=== PATIENT | male | born 1945 | race Caucasian/White ===

== ENCOUNTER 2017-07-16 06:26 | Inpatient (IN) | payer OTHER ==
[2017-07-16] VITALS (7 sets, daily range): BP systolic 152–190; BP diastolic 73–87; PULSE 70–86; TEMP 36.2–36.7; O2SAT 93–99; BMI 35.4
[~2017-07-16] VITALS: Ht 180.3 cm; Wt 111.4 kg
[~2017-07-16 06:26] MED LIST: ALL300 PO; ASPEC81 PO; ATEN50TA8 PO; AVLX/400 PO; BUPR-79 PO; CILO50TA9 PO; CLOP1TAB15 PO; CRS10 PO; FENO200C6 PO; GABA-113 PO; HYDC25 PO; IMP/50 PO; INSU70IN2 SC; LISI-725 PO; LRT5 PO; MORP30TA23 PO; NTRGSL/4 UT; OMEG10007 PO; PROM25TA PO; RIFA300C34 PO; TEMA15CA4 PO; ZNTT/150 PO
[2017-07-16] MEDS ORDERED: ASPIRIN 81 MG CHEW PO STA (06:54)
[2017-07-16] MEDS ORDERED: ONDANSETRON INJ 2 MG/ML 2 ML VIAL IV STA (07:15)
--- NOTE | 2017-07-16 07:28 | EMERGENCY ROOM VISIT NOTE ---
History Report prepared by Mendel: Sunday Rebolledo Under the Supervision of: Dr. Ivette Fried M.D. First contact with patient: 06:38 Chief Complaint: SHORTNESS OF BREATH Stated Complaint: SOB,NAUSEA,COUGHING UP PHLEM,SORE THROAT Nursing Triage Summary: Pt reports, "I am on oxygen at home. I have it set on 2. I went to bed and the longer I laid there, the worse it got. I couldn't breathe right. I've had a couple heart attacks and have a pacemaker." Denies cp. History of Present Illness The patient is a 72 year old male who presents to the Emergency Room with complaints of SOB beginning two hours ago. The patient states that he was watching television all night while lying down in bed. When he went to bed at around 0500 this morning, he was unable to fall asleep due to his shortness of breath. He notes experiencing SOB for the past 3 days, but notes that his symptoms worsened this morning. He also reports that his symptoms worsen when lying down. The patient states that he finds relief of his symptoms when sitting upright. He notes that he has a history of diabetes mellitus and stage four kidney disease but is not on dialysis. He also notes a history of CABG surgery, and has a pacemaker and defibrillator implanted. He reports a cough and shoulder pain with movement. He denies any chest pain and abdominal pain. He did not take any aspirin for his symptoms prior to arrival and is not currently on any antibiotics. The patient is on Plavix. Source of History: patient Onset: 0500 this morning Position: chest Timing: constant Modifying Factors (Worsening): other (lyin down) Associated Symptoms: + cough, No chest pain, No abdominal pain Note: he notes shoulder pain with movement Review of Systems See HPI for pertinent positives & negatives. A total of 10 systems reviewed and were otherwise negative. Past Medical & Surgical Medical Problems: (1) Diabetes (2) Shortness of breath (3) Stage 4 chronic kidney disease Surgical Problems: (1) Hx of CABG Social History Smoking Status: Never Smoker Marital Status: Housing Status: lives with significant other Occupation Status: retired Current/Historical Medications Scheduled Allopurinol (Zyloprim), 300 MG PO DAILY Amlodipine (Norvasc), 10 MG PO DAILY Aspirin (Aspirin Ec), 81 MG PO DAILY Bupropion Hcl (Smoking Deterre (Bupropion Hcl Sr), 1 TAB PO BID Cholecalciferol (Vitamin D3), 2 TAB PO DAILY Clopidogrel (Plavix), 75 MG PO DAILY Duloxetine HCl (Cymbalta), 1 CAP PO HS Duloxetine Hcl (Cymbalta), 60 MG PO DAILY Fenofibrate (Tricor), 200 MG PO DAILY Imipramine Hcl (Tofranil), 25 MG PO QAM Imipramine Hcl (Tofranil), 2 TAB PO HS Insulin Aspart (Novolog), 29 UNITS SC AC Insulin Glargine (Lantus Solostar), 52 UNITS SC AMPM Levothyroxine Sodium (Levothyroxine Sodium), 1 TAB PO DAILYBB Magnesium Oxide (Mag-Ox), 400 MG PO BID Metoprolol Succ (Toprol Xl) (Toprol-Xl), 1.5 TAB PO HS Multivitamin (Multivitamin), 1 TAB PO DAILY Nitroglycerin (Nitrostat), 0.4 MG UT PRN [place]-3 Fatty Acids (Fish Oil 1200 mg), 2 CAP PO BID Pantoprazole (Protonix), 40 MG PO DAILY Pregabalin (Lyrica), 150 MG PO BID Rosuvastatin Calcium (Crestor), 40 MG PO DAILY Scheduled PRN Oxymetazoline Hcl (Afrin 0.05% Nasal [place]), 2 SPRAYS [place] BID PRN for Nasal Congestion Miscellaneous Medications Home O2 Therapy (Oxygen), 2 LITERS NA Allergies Coded Allergies: Moxifloxacin (Unverified Adverse Reaction, Severe, "DEPLETED POTASSIUM AND MAGNESIUM. CARDIAC ARREST" PT , 07/16/17) Physical Exam Vital Signs Date Time Temp Pulse Resp B/P (MAP) Pulse Ox O2 Delivery O2 Flow Rate FiO2 07/16/17 10:30 58 20 163/82 96 Nasal Cannula 2.0 07/16/17 10:00 96 Nasal Cannula 2.0 07/16/17 10:00 68 20 177/94 96 Nasal Cannula 2.0 07/16/17 09:30 72 20 173/81 94 Nasal Cannula 2.0 07/16/17 09:00 68 20 161/89 94 Room Air 07/16/17 08:30 68 20 177/86 95 Nasal Cannula 2.0 07/16/17 08:00 64 20 169/86 94 Nasal Cannula 2.0 07/16/17 07:48 Nasal Cannula 2.0 10/15/17 07:30 68 18 168/88 91 Room Air 07/16/17 06:51 67 18 173/90 94 Room Air 07/16/17 06:51 Room Air 07/16/17 06:51 65 07/16/17 06:31 36.6 66 20 180/85 94 Room Air 07/16/17 06:31 94 Room Air Physical Exam Vital signs reviewed. General: Obese but generally well-appearing, in no significant distress. HEENT: No scleral icterus, PERRLA, neck supple. Atraumatic. Cardiovascular: Regular rate and rhythm, no extra sounds, pacemaker implanted Pulmonary: Clear to auscultation bilaterally, diminished breath sounds bilaterally Abdomen: Soft, nontender, nondistended, positive bowel sounds. Musculoskeletal: Atraumatic, minimal peripheral edema, post sternotomy scar Neurologic: Patient awake alert and oriented x 3. Skin: Warm, dry, no rash Medical Decision & Procedures ER Provider Diagnostic Interpretation: Radiology results as stated below per my review and radiologist interpretation: CHEST ONE VIEW PORTABLE HISTORY: Short of breath. Cough. COMPARISON: Chest 07/20/2010. FINDINGS: Patient is slightly rotated on this study. Left-sided single lead pacemaker/defibrillator. Poststernotomy changes. Linear scarlike density within the right midlung zone. Old, healed left-sided rib fractures. The heart remains mildly enlarged. No pleural effusions. No pneumothorax. No evidence for pulmonary edema. IMPRESSION: 1. Stable mild cardiomegaly. 2. Linear scarlike density within the right midlung zone. Electronically signed by: Javier Lowery M.D. 07/16/2017 7:31 AM Laboratory Results 07/16/17 07:10 Red Blood Count 4.51, Mean Corpuscular Volume 85.1, Mean Corpuscular Hemoglobin 28.8, Mean Corpuscular Hemoglobin Concent 33.9, Mean Platelet Volume 10.8, Neutrophils (%) (Auto) 66.0, Lymphocytes (%) (Auto) 22.7, Monocytes (%) (Auto) 8.7, Eosinophils (%) (Auto) 1.8, Basophils (%) (Auto) 0.4, Neutrophils # (Auto) 3.26, Lymphocytes # (Auto) 1.12, Monocytes # (Auto) 0.43, Eosinophils # (Auto) 0.09, Basophils # (Auto) 0.02 07/16/17 07:10 Test 07/16/17 07:10 07/16/17 07:18 White Blood Count 4.94 K/uL (4.8-10.8) Red Blood Count 4.51 M/uL (4.7-6.1) Hemoglobin 13.0 g/dL (14.0-18.0) Hematocrit 38.4 % (42-52) Mean Corpuscular Volume 85.1 fL (80-100) Mean Corpuscular Hemoglobin 28.8 pg (25-34) Mean Corpuscular Hemoglobin Concent 33.9 g/dl (32-36) Platelet Count 160 K/uL (130-400) Mean Platelet Volume 10.8 fL (7.4-10.4) Neutrophils (%) (Auto) 66.0 % Lymphocytes (%) (Auto) 22.7 % Monocytes (%) (Auto) 8.7 % Eosinophils (%) (Auto) 1.8 % Basophils (%) (Auto) 0.4 % Neutrophils # (Auto) 3.26 K/uL (1.4-6.5) Lymphocytes # (Auto) 1.12 K/uL (1.2-3.4) Monocytes # (Auto) 0.43 K/uL (0.11-0.59) Eosinophils # (Auto) 0.09 K/uL (0-0.5) Basophils # (Auto) 0.02 K/uL (0-0.2) RDW Standard Deviation 42.9 fL (36.4-46.3) RDW Coefficient of Variation 13.8 % (11.5-14.5) Immature Granulocyte % (Auto) 0.4 % Immature Granulocyte # (Auto) 0.02 K/uL (0.00-0.02) Prothrombin Time 11.3 SECONDS (9.0-12.0) Prothromb Time International Ratio 1.1 (0.9-1.1) Activated Partial Thromboplast Time 29.9 SECONDS (21.0-31.0) Partial Thromboplastin Ratio 1.2 Anion Gap 6.0 mmol/L (3-11) Est Creatinine Clear Calc Drug Dose 41.0 ml/min Estimated GFR () 35.4 Estimated GFR (Non- 30.5 BUN/Creatinine Ratio 10.3 (10-20) Calcium Level 8.2 mg/dl (8.5-10.1) Magnesium Level 2.4 mg/dl (1.8-2.4) Total Bilirubin 0.5 mg/dl (0.2-1) Direct Bilirubin 0.2 mg/dl (0-0.2) Aspartate Amino Transf (AST/SGOT) 22 U/L (15-37) Alanine Aminotransferase (ALT/SGPT) 34 U/L (12-78) Alkaline Phosphatase 39 U/L (45-117) Total Creatine Kinase 162 U/L (39-308) Creatine Kinase MB 3.0 ng/ml (0.5-3.6) Creatine Kinase MB Ratio 1.9 (0-3.0) Pro-B-Type Natriuretic Peptide 479 pg/ml (0-900) Total Protein 6.9 gm/dl (6.4-8.2) Albumin 3.7 gm/dl (3.4-5.0) Amylase Level 19 U/L (25-115) Lipase 104 U/L (73-393) Hepatitis C Antibody Screen NEG (NEG) Bedside Troponin I < 0.030 ng/ml (0-0.045) Laboratory results per my review. Medications Administered Medications (Trade) Dose Ordered Sig/Lashae Route Start Time Stop Time Status Last Admin Dose Admin Aspirin (Aspirin Chew) 324 mg NOW STAT PO 07/16/17 06:54 07/16/17 06:56 DC 07/16/17 07:14 324 MG Ondansetron HCl (Zofran Inj) 4 mg NOW STAT IV 07/16/17 07:15 07/16/17 07:16 DC 07/16/17 07:19 4 MG Hydralazine HCl (HydrALAZINE INJ) 10 mg NOW STAT IV. 07/16/17 08:46 07/16/17 08:47 DC 07/16/17 09:20 10 MG Albuterol/ Ipratropium (Duoneb) 3 ml NOW STAT INH 07/16/17 08:47 07/16/17 08:48 DC 07/16/17 09:20 3 ML Furosemide (Lasix Inj) 40 mg NOW STAT IV 07/16/17 09:00 07/16/17 09:01 DC 07/16/17 09:20 40 MG Amlodipine Besylate (Norvasc Tab) 10 mg 1032 ONCE PO 07/16/17 10:32 07/16/17 12:12 DC 07/16/17 12:47 10 MG ECG Indication: SOB/dyspnea Rate (beats per minute): 66 Rhythm: junctional Findings: 1st degree AV block, no acute ischemic change, prolonged QT, other ( diffuse t-wave flattening, likely previous septal infarct) ED Course 0653: Past medical records reviewed. The patient was evaluated in room A3. A complete history and physical examination was performed. 0654: Aspirin Chew 324mg Po 0715: Zofran Inj 4mg IV 0846: Hydralazine HCl 10mg IV 0847: Duoneb 3ml INH 0900: Lasix Inj 40mg IV 0928: I reevaluated and updated the patient. 0947: Upon reevaluation, the patient is resting comfortably. I discussed laboratory and radiographic results with him. He verbalized agreement of the treatment plan. I spoke with Dr. Zuleta of the [facility] Hospitalist Service. The patient will be evaluated for further management and care. Medical Decision Differential diagnosis: Etiologies such as infections, reactive airway disease, pneumonia, pneumothorax , COPD, CHF, cardiac ischemia, pulmonary embolism, musculoskeletal, gastrointestinal, as well as others were entertained. This patient was evaluated and appeared to be in no significant distress. The patient was feeling much more comfortable sitting up. He did have some oxygen desaturations on room air but maintained his saturations well on 2 L nasal cannula. Patient was given aspirin 324 mg to chew. Chest x-ray was obtained and reveals some chronic scarring without evidence of acute focal lung consolidation or failure. Laboratory work is fairly unrevealing. Cardiac enzymes are negative. EKG reveals no evidence of acute ischemia. The patient was given 40 mg of IV Lasix as I do feel there is an element of fluid overload. Patient was given hydralazine 10 mg IV. He was also given a DuoNeb treatment with minimal improvement in his symptoms. Given the patient's extensive history of diabetes, hypertension, coronary artery disease and renal failure, he 'll be evaluated by the hospitalist service for admission and further management. He has are aware of the plan and agree. Medication Reconcilliation Current Medication List: was personally reviewed by me Blood Pressure Screening Patient's blood pressure: Elevated blood pressure Blood pressure disposition: Referred to PCP Consults Time Called: [phone] Consulting Physician: Dr. Zuleta - Edwin Eckert Returned Call: [phone] I reviewed the patient's case with Edwin Beverly. He will evaluate the patient for further management. Impression Primary Impression: Hypoxia Additional Impressions: SOB (shortness of breath) Hypertension Scribe Attestation The scribe's documentation has been prepared under my direction and personally reviewed by me in its entirety. I confirm that the note above accurately reflects all work, treatment, procedures, and medical decision making performed by me. Departure Information Dispostion Being Evaluated By Hospitalist Referrals Chavez Cesar M.D. (PCP) Patient Instructions [facility] Problem Qualifiers
[2017-07-16 07:32] LABS: BASO % 0.4 %; BASO ABS # 0.02 K/uL (0-0.2); COMPLETE YES; EOS % 1.8 %; HEMATOCRIT 38.4 % (42-52); IG% 0.4 %; LYMPH % 22.7 %; LYMPH ABS # 1.12 K/uL (1.2-3.4); MEAN CELL VOLUME 85.1 fL (80-100); MEAN CORPUSCULAR HEMOGLOBIN 28.8 pg (25-34); MEAN CORPUSCULAR HGB CONC 33.9 g/dl (32-36); MEAN PLATELET VOLUME 10.8 fL (7.4-10.4); MONO % 8.7 %; PLATELET COUNT 160 K/uL (130-400); RED BLOOD COUNT 4.51 M/uL (4.7-6.1); WHITE BLOOD COUNT 4.94 K/uL (4.8-10.8)
--- NOTE | 2017-07-16 07:32 | DIAGNOSTIC IMAGING REPORT ---
CHEST ONE VIEW PORTABLE HISTORY: Short of breath. Cough. COMPARISON: Chest 07/20/2010. FINDINGS: Patient is slightly rotated on this study. Left-sided single lead pacemaker/defibrillator. Poststernotomy changes. Linear scarlike density within the right midlung zone. Old, healed left-sided rib fractures. The heart remains mildly enlarged. No pleural effusions. No pneumothorax. No evidence for pulmonary edema. IMPRESSION: 1. Stable mild cardiomegaly. 2. Linear scarlike density within the right midlung zone. Electronically signed by: Javier Lowery M.D. 07/16/2017 7:31 AM Dictated Date/Time: 07/16/2017 7:29 AM
[2017-07-16 07:40] LABS: INR 1.1 (0.9-1.1); PARTIAL THROMBOPLASTIN RATIO 1.2; PROTHROMBIN TIME (PATIENT) 11.3 SECONDS (9.0-12.0)
[2017-07-16 07:45] LABS: BUN/CREATININE RATIO 10.3 (10-20); CALCIUM 8.2 mg/dl (8.5-10.1); CREATININE 2.1 mg/dl (0.60-1.40); MAGNESIUM 2.4 mg/dl (1.8-2.4); POTASSIUM 3.6 mmol/L (3.5-5.1)
[2017-07-16 07:51] LABS: CKMB/CK RATIO 1.9 (0-3.0)
[2017-07-16] MEDS ORDERED: LEVO50TA6 PO (07:56)
[2017-07-16] MEDS ORDERED: OXGN (07:56)
[2017-07-16] MEDS ORDERED: MULT-506 PO (07:56)
[2017-07-16] MEDS ORDERED: OMEG5CAP PO (07:56)
[2017-07-16] MEDS ORDERED: CHOL1000 PO (07:56)
[2017-07-16] MEDS ORDERED: INSDGIPEN SC (07:56)
[2017-07-16] MEDS ORDERED: ALLO300T2 PO (07:56)
[2017-07-16] MEDS ORDERED: DULO60CA44 PO (07:56)
[2017-07-16] MEDS ORDERED: ROSU40TA PO (07:56)
[2017-07-16] MEDS ORDERED: MAGN400T6 PO (07:56)
[2017-07-16] MEDS ORDERED: FENO200C6 PO (07:56)
[2017-07-16] MEDS ORDERED: IMIP25TA PO ×2 (07:56)
[2017-07-16] MEDS ORDERED: CYM/30 PO (07:56)
[2017-07-16] MEDS ORDERED: METO25TA3 PO (07:56)
[2017-07-16] MEDS ORDERED: ASPI81TA28 PO (07:56)
[2017-07-16] MEDS ORDERED: BUPR-102 PO (07:56)
[2017-07-16] MEDS ORDERED: CLOP1TAB15 PO (07:56)
[2017-07-16] MEDS ORDERED: NVLG SC (07:56)
[2017-07-16] MEDS ORDERED: AMLO-114 PO (07:56)
[2017-07-16] MEDS ORDERED: AFRINWC NAE (07:56)
[2017-07-16] MEDS ORDERED: PANT40TA PO (07:56)
[2017-07-16] MEDS ORDERED: NTRGSL/4 UT (07:56)
[2017-07-16] MEDS ORDERED: PREG1CAP70 PO (07:56)
[2017-07-16] MEDS ORDERED: HydrALAZINE HCL 20 MG/ML VIAL IV. STA (08:46)
[2017-07-16] MEDS ORDERED: ALBUT/IPRATROP 3MG/0.5MG NEB 3 ML VIAL INH STA (08:47)
[2017-07-16] MEDS ORDERED: FUROSEMIDE 40 MG/4 ML VIAL IV STA (09:00)
[2017-07-16] MEDS ORDERED: AMLODIPINE BESYLATE 5 MG TAB PO ONE (10:32)
[2017-07-16] MEDS ORDERED: DEXTROSE 50% 50 ML SYR IV PRN (10:45)
[2017-07-16] MEDS ORDERED: GLUCOSE 40% GEL 15 GM TUBE PO PRN (10:45)
[2017-07-16] MEDS ORDERED: GLUCOSE 10 TABS/TUBE PO PRN (10:45)
[2017-07-16] MEDS ORDERED: GLUCAGON FOR INJ 1 MG VIAL SQ PRN (10:45)
[2017-07-16 11:02] LABS: AMYLASE 19 U/L (25-115)
--- NOTE | 2017-07-16 11:18 | History and Physical ---
History & Physical Date & Time of Service: Jul 16, 2017 at 10:41 Chief Complaint: Sob,Nausea,Coughing Up Phlem,Sore Throat Primary Care Physician: Chavez Cesar M.D. History of Present Illness Source: patient, family This is a 72 year old male with a PMH of CAD s/p CABGx2, Hx. of Cardiac Arrest and V-Fib s/p AICD placement, insulin dependent DM2 with complications including peripheral vascular disease s/p R foot transmetatarsal amputation, CKD stage IV, JOSE on nocturnal O2, Hypothyroidism, Mood Disorder with depression - presents with shortness of breath. As per patient, he has been having shortness of breath and "throat pain" for the past three weeks. He has seen his primary care physician; and was given antibiotics at that time. He said he never fully recovered. Last evening, while laying down, he developed worsening shortness of breath. He uses O2 nocturnally due to sleep apnea (did not tolerate CPAP mask); and he turned it up to 3L of O2 with no help. He also developed some chest/throat pain. Denies fevers/chills. Denies nausea/vomiting. Past Medical/Surgical History Surgical Problems: (1) Hx of CABG Status: Resolved Social History Smoking Status: Never Smoker Marital Status: Housing status: lives with family Immunizations History of Influenza Vaccine: Yes Influenza Vaccine Date: Jun 19, 2010 History of Tetanus Vaccine?: Unknown History of Pneumococcal: Yes Pneumococcal Date: Jun 19, 2010 History of Hepatitis B Vaccine: No Multi-Drug Resistant Organisms History of MDRO: No Allergies Coded Allergies: Moxifloxacin (Unverified Adverse Reaction, Severe, "DEPLETED POTASSIUM AND MAGNESIUM. CARDIAC ARREST" PT , 07/16/17) Home Medications Scheduled Allopurinol (Zyloprim), 300 MG PO DAILY Amlodipine (Norvasc), 10 MG PO DAILY Aspirin (Aspirin Ec), 81 MG PO DAILY Bupropion Hcl (Smoking Deterre (Bupropion Hcl Sr), 1 TAB PO BID Cholecalciferol (Vitamin D3), 2 TAB PO DAILY Clopidogrel (Plavix), 75 MG PO DAILY Duloxetine HCl (Cymbalta), 1 CAP PO HS Duloxetine Hcl (Cymbalta), 60 MG PO DAILY Fenofibrate (Tricor), 200 MG PO DAILY Imipramine Hcl (Tofranil), 25 MG PO QAM Imipramine Hcl (Tofranil), 2 TAB PO HS Insulin Aspart (Novolog), 29 UNITS SC AC Insulin Glargine (Lantus Solostar), 52 UNITS SC AMPM Levothyroxine Sodium (Levothyroxine Sodium), 1 TAB PO DAILYBB Magnesium Oxide (Mag-Ox), 400 MG PO BID Metoprolol Succ (Toprol Xl) (Toprol-Xl), 1.5 TAB PO HS Multivitamin (Multivitamin), 1 TAB PO DAILY Nitroglycerin (Nitrostat), 0.4 MG UT PRN [place]-3 Fatty Acids (Fish Oil 1200 mg), 2 CAP PO BID Pantoprazole (Protonix), 40 MG PO DAILY Pregabalin (Lyrica), 150 MG PO BID Rosuvastatin Calcium (Crestor), 40 MG PO DAILY Scheduled PRN Oxymetazoline Hcl (Afrin 0.05% Nasal [place]), 2 SPRAYS LAMONT BID PRN for Nasal Congestion Miscellaneous Medications Home O2 Therapy (Oxygen), 2 LITERS NA Review of Systems Constitutional: No fever, No chills, No sweats, No weakness, No fatigue Respiratory: + cough, + shortness of breath, + dyspnea on exertion, + dyspnea at rest, No sputum, No wheezing, No hemoptysis Cardiovascular: + chest pain, + orthopnea, + PND, + edema, No claudication, No palpitations Abdomen: No pain, No nausea, No vomiting, No diarrhea, No constipation, No GI bleeding, No problem reported Musculoskeletal: No joint pain, No muscle pain, No swelling, No calf pain Genitourinary - Male: No hematuria, No dysuria, No urinary frequency, No urinary urgency Neurologic: No memory loss, No weakness, No numbness/tingling, No vertigo Psychiatric: + depression symptoms (controlled with medications), No anxiety, No insomnia Hematologic / Lymphatic: No abnormal bleeding/bruising Integumentary: No rash Allergic / Immunologic: No environmental allergies, No seasonal allergies Physical Exam Vital Signs Date Time Temp Pulse Resp B/P (MAP) Pulse Ox O2 Delivery O2 Flow Rate FiO2 07/16/17 10:00 68 20 177/94 96 Nasal Cannula 2.0 07/16/17 09:30 72 20 173/81 94 Nasal Cannula 2.0 07/16/17 09:00 68 20 161/89 94 Room Air 07/16/17 08:30 68 20 177/86 95 Nasal Cannula 2.0 07/16/17 08:00 64 20 169/86 94 Nasal Cannula 2.0 07/16/17 07:48 Nasal Cannula 2.0 07/16/17 07:30 68 18 168/88 91 Room Air 07/16/17 06:51 67 18 173/90 94 Room Air 07/16/17 06:51 Room Air 07/16/17 06:51 65 07/16/17 06:31 36.6 66 20 180/85 94 Room Air 07/16/17 06:31 94 Room Air General Appearance: no apparent distress, + obese Head: normocephalic, atraumatic Eyes: normal inspection ENT: hearing grossly normal Respiratory/Chest: chest non-tender, lungs clear, normal breath sounds, no respiratory distress, no accessory muscle use Cardiovascular: regular rate, rhythm, no edema, no gallop, no JVD, no murmur, normal peripheral pulses Abdomen/GI: normal bowel sounds, non tender, soft Back: no muscle spasm Extremities/Musculoskelatal: normal inspection, no calf tenderness, normal capillary refill, no pedal edema, normal range of motion, + pertinent finding ( R transmetatarsal amputation) Neurologic/Psych: no motor/sensory deficits, alert, normal mood/affect Skin: normal color Lymphatic: no adenopathy Diagnostics Laboratory Results Results Past 24 Hours Test 07/16/17 07:10 07/16/17 07:18 07/16/17 10:32 Range/Units White Blood Count 4.94 4.8-10.8 K/uL Red Blood Count 4.51 4.7-6.1 M/uL Hemoglobin 13.0 14.0-18.0 g/dL Hematocrit 38.4 42-52 % Mean Corpuscular Volume 85.1 80-100 fL Mean Corpuscular Hemoglobin 28.8 25-34 pg Mean Corpuscular Hemoglobin Concent 33.9 32-36 g/dl Platelet Count 160 130-400 K/uL Mean Platelet Volume 10.8 7.4-10.4 fL Neutrophils (%) (Auto) 66.0 % Lymphocytes (%) (Auto) 22.7 % Monocytes (%) (Auto) 8.7 % Eosinophils (%) (Auto) 1.8 % Basophils (%) (Auto) 0.4 % Neutrophils # (Auto) 3.26 1.4-6.5 K/uL Lymphocytes # (Auto) 1.12 1.2-3.4 K/uL Monocytes # (Auto) 0.43 0.11-0.59 K/uL Eosinophils # (Auto) 0.09 0-0.5 K/uL Basophils # (Auto) 0.02 0-0.2 K/uL RDW Standard Deviation 42.9 36.4-46.3 fL RDW Coefficient of Variation 13.8 11.5-14.5 % Immature Granulocyte % (Auto) 0.4 % Immature Granulocyte # (Auto) 0.02 0.00-0.02 K/uL Prothrombin Time 11.3 9.0-12.0 SECONDS Prothromb Time International Ratio 1.1 0.9-1.1 Activated Partial Thromboplast Time 29.9 21.0-31.0 SECONDS Partial Thromboplastin Ratio 1.2 Sodium Level 140 136-145 mmol/L Potassium Level 3.6 3.5-5.1 mmol/L Chloride Level 107 98-107 mmol/L Carbon Dioxide Level 27 21-32 mmol/L Anion Gap 6.0 3-11 mmol/L Blood Urea Nitrogen 22 7-18 mg/dl Creatinine 2.10 0.60-1.40 mg/dl Est Creatinine Clear Calc Drug Dose 41.0 ml/min Estimated GFR () 35.4 Estimated GFR (Non- 30.5 BUN/Creatinine Ratio 10.3 10-20 Random Glucose 149 70-99 mg/dl Calcium Level 8.2 8.5-10.1 mg/dl Magnesium Level 2.4 1.8-2.4 mg/dl Total Bilirubin 0.5 0.2-1 mg/dl Direct Bilirubin 0.2 0-0.2 mg/dl Aspartate Amino Transf (AST/SGOT) 22 15-37 U/L Alanine Aminotransferase (ALT/SGPT) 34 12-78 U/L Alkaline Phosphatase 39 45-117 U/L Total Creatine Kinase 162 39-308 U/L Creatine Kinase MB 3.0 0.5-3.6 ng/ml Creatine Kinase MB Ratio 1.9 0-3.0 Pro-B-Type Natriuretic Peptide 479 0-900 pg/ml Total Protein 6.9 6.4-8.2 gm/dl Albumin 3.7 3.4-5.0 gm/dl Bedside Troponin I < 0.030 0-0.045 ng/ml Diagnostic Radiology CHEST ONE VIEW PORTABLE HISTORY: Short of breath. Cough. COMPARISON: Chest 07/20/2010. FINDINGS: Patient is slightly rotated on this study. Left-sided single lead pacemaker/defibrillator. Poststernotomy changes. Linear scarlike density within the right midlung zone. Old, healed left-sided rib fractures. The heart remains mildly enlarged. No pleural effusions. No pneumothorax. No evidence for pulmonary edema. IMPRESSION: 1. Stable mild cardiomegaly. 2. Linear scarlike density within the right midlung zone. EKG Suspected ectopic atrial rhythm with 1st degree A-V block Nonspecific T wave abnormality Prolonged QT Abnormal ECG Impression Assessment and Plan This is a 72 year old male with a PMH of CAD s/p CABGx2, Hx. of Cardiac Arrest and V-Fib s/p AICD placement, insulin dependent DM2 with complications including peripheral vascular disease s/p R foot transmetatarsal amputation, CKD stage IV, JOSE on nocturnal O2, Hypothyroidism, Mood Disorder with depression - presents with shortness of breath Shortness of Breath unsure of the cause of SOB; possibly obesity-hypoventilation, worsening JOSE, bronchitis, CHF, or ACS will check an echo; was given Lasix in the ED started on Doxycycline will monitor in tele, trend cardiac enzymes recheck CXR in AM nocturnal pulse ox nocturnal O2 and intermittent O2 throughout the day nebs PRN Insulin Dependent DM2 patient is on a high dose of insulin, takes 52 units twice daily of Lantus as well as a sliding scale of Novolog will check an updated Ha1c Start with 45 units Lantus BID and work our way up monitor BSGs AC and HS HTN uncontrolled BP > 180/100 on admission patient did not take morning medications given Hydralazine in the ED gave dose of amlodipine, monitor BP and we will adjust meds accordingly CKD stage IV patient states that he was to have further kidney w/up creatinine at one point went up to >4 currently creatinine is down to 2.1 as per family request, would like to see nephrology consulted nephrology, received one dose of Lasix in the ED Hx. of CAD s/p CABGx2 unsure if this is atypical ACS related shortness of breath therefore, monitor in tele - trend cardiac enzymes check an echo continue current medications Hx. of cardiac arrest and V-Fib s/p AICD JOSE did not tolerate CPAP uses 2L O2 nocturnally check nocturnal pulse ox as SOB is worse at night Hypothyroidism check TSH continue current dose of Synthroid Mood Disorder and Depression continue current medications DVT ppx subq heparin FULL CODE VTE Prophylaxis VTE Risk Assessment Done? Y/N: Yes Risk Level: Moderate
[2017-07-16] MEDS: SODIUM CHLORIDE 0.9% 1000ML 1,000 ML IV SCH (12:16)
[2017-07-16] MEDS ORDERED: DOXYCYCLINE HYCLATE 100 MG CAP PO SCH (13:00)
[2017-07-16] MEDS: INSULIN ASPART 100 UNITS/ML 3 ML PEN SC SCH ×3 (13:24→20:43)
[2017-07-16] MEDS: MAGNESIUM OXIDE 400 MG TAB PO SCH ×2 (13:35→20:47)
[2017-07-16] MEDS: DULOXETINE HCL 60 MG CAP PO SCH (13:35)
[2017-07-16] MEDS: PANTOprazole SOD 40 MG TAB PO SCH (13:36)
[2017-07-16] MEDS: ROSUVASTATIN CALCIUM 20 MG TAB PO SCH (13:36)
[2017-07-16] MEDS: CLOPIDOGREL BISULFATE 75 MG TAB PO SCH (13:36)
[2017-07-16] MEDS: BuPROPion SR 150 MG TABCR PO SCH ×2 (13:36→20:46)
[2017-07-16] MEDS ORDERED: PERFLUTREN LIPID MICROSPHERE (DEFINITY) IV ONE (14:56)
[2017-07-16] MEDS: ALBUT/IPRATROP 3MG/0.5MG NEB 3 ML VIAL INH SCH ×2 (15:10→18:57)
[2017-07-16] MEDS: HEPARIN SOD 5000 UNIT/0.5 ML CARP SQ SCH ×2 (15:32→20:42)
[2017-07-16] MEDS ORDERED: SODIUM CHLORIDE 0.65% NA SOLN 45 ML (OCEAN) PRN (16:45)
[2017-07-16] MEDS ORDERED: NURSING DECISION MEDICATION ORDER SCH (16:45)
[2017-07-16 16:58] LABS: CKMB/CK RATIO 1.9 (0-3.0)
[2017-07-16] MEDS: INSULIN GLARGINE SOLOSTAR 100 UNITS/ML 3 ML PEN SC SCH (20:41)
[2017-07-16] MEDS: PREGABALIN 150 MG CAP PO SCH (20:45)
[2017-07-16] MEDS: IMIPRAMINE HCL 50 MG TAB PO SCH (20:46)
[2017-07-16] MEDS: METOPROLOL SUCC 25MG EXT REL TAB PO SCH (20:47)
[2017-07-16] MEDS: DULOXETINE (CYMBALTA) 30 MG CAP PO SCH (20:48)
[2017-07-16] MEDS ORDERED: PROMETHAZINE HCL INJ 12.5 MG in SODIUM CHLORIDE 0.9% 50ML 50 ML IV PRN (22:15)
[2017-07-16] MEDS: DOXYCYCLINE HYCLATE 100 MG CAP PO SCH (22:30)
[2017-07-17] VITALS (11 sets, daily range): BP systolic 127–146; BP diastolic 67–83; PULSE 60–95; TEMP 36.5–37.1; O2SAT 92–97
[2017-07-17] MEDS ORDERED: POTASSIUM CHLORIDE 10 MEQ TABCR PO ONE
[2017-07-17 01:11] LABS: CKMB/CK RATIO 1.4 (0-3.0)
[2017-07-17] MEDS: SODIUM CHLORIDE 0.9% 1000ML 1,000 ML IV SCH (01:24)
[2017-07-17] MEDS: LEVOTHYROXINE 50 MCG TAB PO SCH (05:50)
[2017-07-17] MEDS: HEPARIN SOD 5000 UNIT/0.5 ML CARP SQ SCH ×3 (05:50→21:25)
[2017-07-17 06:36] LABS: HEMATOCRIT 35.8 % (42-52); MEAN CELL VOLUME 86.5 fL (80-100); MEAN CORPUSCULAR HEMOGLOBIN 29.2 pg (25-34); MEAN CORPUSCULAR HGB CONC 33.8 g/dl (32-36); MEAN PLATELET VOLUME 10.7 fL (7.4-10.4); PLATELET COUNT 164 K/uL (130-400); RED BLOOD COUNT 4.14 M/uL (4.7-6.1); WHITE BLOOD COUNT 4.24 K/uL (4.8-10.8)
[2017-07-17] MEDS: ALBUT/IPRATROP 3MG/0.5MG NEB 3 ML VIAL INH SCH ×4 (07:07→19:48)
[2017-07-17 07:09] LABS: BUN/CREATININE RATIO 10.4 (10-20); CALCIUM 7.6 mg/dl (8.5-10.1); CREATININE 2.27 mg/dl (0.60-1.40); MAGNESIUM 2.5 mg/dl (1.8-2.4); POTASSIUM 3.7 mmol/L (3.5-5.1)
[2017-07-17 07:11] LABS: ESTIMATED AVERAGE GLUCOSE 154 mg/dl; HA1C FLAG Normal (Normal)
[2017-07-17 07:20] LABS: THYROID STIMULATING HORMONE 2.07 uIu/ml (0.300-4.500)
--- NOTE | 2017-07-17 07:55 | NEPHROLOGY CONSULTATION ---
DATE OF CONSULTATION: 07/17/2017 HISTORY OF PRESENT ILLNESS: This is a 72-year-old male who presented with shortness of breath, who has underlying CKD stage IV with baseline creatinine in the low 2s and the creatinine continues to be in low 2s. I was asked to evaluate the patient secondary to my partner Dr. Blanco evaluating the patient at the end of June for acute kidney injury on CKD stage IV. Past medical history includes diabetes diagnosed in 2002, on insulin, and has diabetic retinopathy. The patient also with severe sleep apnea, on oxygen at night. Chews tobacco and does have heart disease with first IL in 1985 and VFib arrest in 2010 in the setting of severe hypokalemia, peripheral vascular disease, status post right leg bypass, spinal stenosis leading to frequent falls. Creatinine runs in the low 2s since 2011. The patient does have intermittent admissions for shortness of breath. The patient was in the ER on 06/16/2017 with sob and the patient refused admission, creatinine was 3. The patient had ongoing nausea and creatinine was up to 4. With the creatinine worsening, Aldactone and lisinopril were stopped and repeat creatinine has trended down. Renal ultrasound was negative for obstruction. Continued to hold the Aldactone and lisinopril and follow up with Dr. Blacno as an outpatient in September. Renal ultrasound on 06/27/2017 showed a right kidney of 13.5 cm and left kidney of 12.3 cm, essentially normal renal ultrasound. The patient presented yesterday with shortness of breath and throat pain for the past 3 weeks. Last evening while lying down, he developed worsening shortness of breath. PAST MEDICAL HISTORY: Type 2 diabetes, hypertension, coronary artery disease with history of cardiac arrest, peripheral vascular disease, obstructive sleep apnea, on nocturnal oxygen, hypothyroidism, depression. PAST SURGICAL HISTORY: Defibrillator placement, CABG x2, right foot transmetatarsal amputation. SOCIAL HISTORY: Chews tobacco. No alcohol, no drugs. and lives at home with . FAMILY HISTORY: No renal disease in family CURRENT MEDICATIONS: Norvasc 10 mg a day, Plavix 75 mg daily, Cymbalta 60 mg daily, imipramine 25 mg daily, multivitamin daily, Protonix 40 mg daily, Crestor 40 mg daily, Synthroid 50 mcg daily, doxycycline 100 mg p.o. b.i.d., Lantus 45 units subcu q. 12, Cymbalta 30 mg at night, imipramine 50 mg at night, magnesium oxide 400 mg p.o. b.i.d., Toprol-XL 37.5 at night, Lyrica 150 mg p.o. b.i.d., Wellbutrin 150 mg p.o. b.i.d., heparin 5000 units subcu q. 8, normal saline at 80 mL an hour. REVIEW OF SYSTEMS: Positive shortness of breath, positive cough, positive swelling, positive depression. No nausea or vomiting. No headaches. No blurry vision. No diarrhea, no constipation. All other review of systems otherwise negative. PHYSICAL EXAMINATION: VITAL SIGNS: Temperature 37.1, pulse 67, respiratory rate 18, blood pressure 138/76, satting 95% on 2 liters. GENERAL: Awake, alert, oriented x3, obese. HEENT: Moist mucous membranes. NECK: Supple. PULMONARY: Clear to auscultation. CARDIAC: Regular rate and rhythm. ABDOMEN: Bowel sounds positive, soft, nontender. EXTREMITIES: No significant clubbing, cyanosis or edema. Does have a right transmetatarsal amputation. NEUROLOGIC: Nonfocal. DERMATOLOGIC: No rash or ulcers noted. Chest x-ray shows stable mild cardiomegaly. LABORATORY DATA: Labs are pending for this morning. Troponins negative x2. Sodium level is 140, potassium 3.6, chloride is 107, bicarb is 27, BUN is 22, creatinine is 2.1, glucose 149, calcium is 8.2, mag is 2.4, alkaline phosphatase 39. Albumin is 3.7, amylase 19, lipase 104. White count is 4, H&H 12 and 35, platelet count is 164. IMPRESSION AND PLAN: 1. Chronic kidney disease stage IV in the setting of heart disease, hypertension, diabetes and chews tobacco. No NSAIDs. Creatinine did acutely worsen in the middle of June in the setting of Aldactone and lisinopril. With poor appetite and worsening wheezing, likely became volume depleted. Renal ultrasound was unimpressive, creatinine back down to baseline and has been in the low 2s since 2011. Recommended by my partner to not resume the lisinopril and Aldactone for now and will concur with her recommendations. The patient currently on IV fluids which I feel the patient currently does not need. We will stop the IV fluids. 2. Hypertension. Blood pressure at midnight as well as early this morning is well controlled on the current blood pressure meds. No changes from that standpoint. 3. Shortness of breath. The patient is on doxycycline. Chest x-ray is unimpressive. The patient's shortness of breath likely multifactorial with previous coronary artery disease and obstructive sleep apnea. I do not feel the patient is in congestive heart failure and the patient's breathing is improved this morning. We will defer to the primary hospitalist. 4. Overall, the patient's chronic kidney disease stage IV is at baseline. I feel creatinine did temporarily worsen in the setting of lisinopril and Aldactone and poor appetite with worsening pulmonary status. I will concur with my partner Dr. Blanco who has been following him in [place] and continue to avoid the lisinopril and Aldactone. Has a scheduled followup appointment with Dr. Blanco in September, which I recommend he continue to keep. From a renal standpoint, okay to discharge once medically cleared. My recommendation currently though is to stop the IV fluids. Given his poor cardiac function and shortness of breath at baseline, I do not necessarily want to add congestive heart failure component at this time. Appreciate consultation. NAILA
[2017-07-17] MEDS: MAGNESIUM OXIDE 400 MG TAB PO SCH ×2 (08:05→21:02)
[2017-07-17] MEDS: IMIPRAMINE HCL 25 MG TAB PO SCH (08:05)
[2017-07-17] MEDS: PANTOprazole SOD 40 MG TAB PO SCH (08:06)
[2017-07-17] MEDS: CLOPIDOGREL BISULFATE 75 MG TAB PO SCH (08:06)
[2017-07-17] MEDS: AMLODIPINE BESYLATE 5 MG TAB PO SCH (08:06)
[2017-07-17] MEDS: DULOXETINE HCL 60 MG CAP PO SCH (08:07)
[2017-07-17] MEDS: ROSUVASTATIN CALCIUM 20 MG TAB PO SCH (08:07)
[2017-07-17] MEDS: MULTIVITAMIN TAB PO SCH (08:07)
[2017-07-17] MEDS: BuPROPion SR 150 MG TABCR PO SCH ×2 (08:07→21:05)
[2017-07-17] MEDS: INSULIN GLARGINE SOLOSTAR 100 UNITS/ML 3 ML PEN SC SCH ×2 (08:14→21:14)
[2017-07-17] MEDS: INSULIN ASPART 100 UNITS/ML 3 ML PEN SC SCH ×4 (08:15→21:00)
[2017-07-17] MEDS: PREGABALIN 150 MG CAP PO SCH ×2 (08:27→21:02)
--- NOTE | 2017-07-17 09:50 | DIAGNOSTIC IMAGING REPORT ---
CHEST 2 VIEWS ROUTINE HISTORY: shortness of breath; r/o pna/congestion COMPARISON: Chest 07/16/2017. FINDINGS: No pneumothorax. No pleural effusions. The heart remains mildly enlarged. A few scattered linear densities within the right midlung zone and the left lung base suggesting scarring or atelectasis. Left sided pacemaker/defibrillator. Poststernotomy changes. No evidence for pulmonary edema. Left lateral sixth through eighth rib fractures. Focal pleural thickening at this location likely due to the rib fractures. This may represent a small surrounding soft tissue hematoma. IMPRESSION: 1. Age-indeterminate lateral sixth through eighth rib fractures. No pneumothorax. Recommend correlation for pain at this location to assess for an acute injury. 2. Stable mild cardiomegaly. Electronically signed by: Javier Lowery M.D. 07/17/2017 9:49 AM Dictated Date/Time: 07/17/2017 9:43 AM
--- NOTE | 2017-07-17 11:58 | Cardiology Consultation ---
Cardiology Consultation Date of Consultation: Jul 17, 2017 Requesting Physician: Edvin Attending Manager Product Management: Portia (Dane Malcolm PA-C) History of Present Illness Mr. Boswell is a 72 year old male who is being seen at the request of Dr. Pardo. Reason for consultation is atrial fibrillation. Information obtained from review of his available records as well as interviewing the patient. The patient is a poor historian. Limited outpatient records are available for review. He notes previously being followed by Dr. Alexis and now being [place] by "[place] mer[place]." The patient states that he presented to the [facility] ER on 07/16/2017 with acute on chronic dyspnea. He describes a nonproductive cough, orthopnea, intermittent PND, lower extremity peripheral edema, and weight gain over the last few weeks. Notes being treated for a URI about three weeks ago without much benefit. On presentation he was given 40 mg IV furosemide with improvement in his presenting symptoms. Review of his outpatient record reveals lisinopril and spironolactone were discontinued in June. (Dane Malcolm PA-C) Past Medical/Surgical History Problem List: ASCVD History of VT in 1985 status post PTCA History of VT in 1988 Status post CABG x 2 in 2006 with a HE to the LAD and a SVT to the OM. RCA occlusion with collateral filling Status post single chamber ICD (Manufacture unknown) following a cardiac arrest Presumed ischemic cardiomyopathy Type II diabetes mellitus with CKD, neuropathy, and retinopathy Stage IV chronic kidney disease Carotid artery disease and peripheral vascular disease, status post right femoropopliteal bypass grafting. Followed in [place] Right foot osteomyelitis status post right foot metatarsal amputation per documentation Severe sleep apnea. Unable to tolerate CPAP. Utilizing nocturnal oxygen supplementation Hypertension Dyslipidemia Chronic back pain Spinal stenosis GERD Hiatal hernia Cholecystectomy Depression Hypothyroidism (Dane Malcolm PA-C) Family History Family History: Mother with CHF in her last 60's. Father with an CVA in his early 70's. One sister and two brothers, all with CAD. (Dane Malcolm PA-C) Social History Social History: Nonsmoker. Chews snuff. No alcohol. Denies illegal drug use. 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 (Gold,Dane, PA-C) Review Of Systems General: + Weight gain. Denies fever or chills. HEENT: No headache. No amaurosis fugax. Cardiovascular: See above. Pulmonary: + Cough. + Chest congestion. + Nocturnal oxygen supplementation. Unable to tolerate CPAP. Gastrointestinal: No nausea, vomiting, or diarrhea. Skin: No rash. Musculoskeletal: Chronic back pain. Diffuse arthritis pain. Neurological: Denies history of TIA, CVA, or seizures Complete review of systems is as stated above, negative, or noncontributory. (Dane Malcolm PA-C) Allergies Coded Allergies: Moxifloxacin (Unverified Adverse Reaction, Severe, "DEPLETED POTASSIUM AND MAGNESIUM. CARDIAC ARREST" PT , 07/16/17) Medications Reported Home Medications Medications Dose Route/Sig Max Daily Dose Days Date Category Dose Instructions Nitrostat (Nitroglycerin) 0.4 Mg Tab 0.4 Mg UT PRN 07/16/17 Reported Fish Oil 1200 mg ([place]-3 Fatty Acids) 1 Cap Cap 2 Cap PO BID 07/16/17 Reported Multivitamin (Multivitamins) Tab 1 Tab PO DAILY 07/16/17 Reported Afrin 0.05% Nasal [place] (Oxymetazoline Hcl) 1 Btl [place] 2 Sprays [place] BID PRN 07/16/17 Reported Mag-Ox (Magnesium Oxide) 400 Mg Tab 400 Mg PO BID 07/16/17 Reported Oxygen Gas 2 Liters NA 07/16/17 Reported Vitamin D3 (Cholecalciferol) 1,000 Unit Tab 2 Tab PO DAILY 07/16/17 Reported Aspirin Ec (Aspirin) 81 Mg Tab 81 Mg PO DAILY 07/16/17 Reported Plavix (Clopidogrel Bisulfate) 75 Mg Tab 75 Mg PO DAILY 07/16/17 Reported Toprol-Xl (Metoprolol Succinate) 25 Mg Tabcr 1.5 Tab PO HS 07/16/17 Reported Novolog (Insulin Aspart) 100 Units/Ml Inj 29 Units SC AC 07/16/17 Reported PLUS ADDITIONAL 2 UNITS FOR EACH 50 ABOVE 150 Zyloprim (Allopurinol) 300 Mg Tab 300 Mg PO DAILY 07/16/17 Reported Tofranil (Imipramine Hcl) 25 Mg Tab 2 Tab PO HS 07/16/17 Reported Tofranil (Imipramine Hcl) 25 Mg Tab 25 Mg PO QAM 07/16/17 Reported Lantus Solostar (Insulin Glargine) 100 Unit/Ml Inj 52 Units SC AMPM 07/16/17 Reported Levothyroxine Sodium 50 Mcg Tab 1 Tab PO DAILYBB 07/16/17 Reported Crestor (Rosuvastatin Calcium) 40 Mg Tab 40 Mg PO DAILY 07/16/17 Reported Bupropion Hcl Sr (Bupropion Hcl (Smoking [place]) 150 Mg Tab 1 Tab PO BID 07/16/17 Reported Tricor (Fenofibrate) 200 Mg Cap 200 Mg PO DAILY 07/16/17 Reported Norvasc (Amlodipine Besylate) 10 Mg Tab 10 Mg PO DAILY 07/16/17 Reported Lyrica (Pregabalin) 150 Mg Cap 150 Mg PO BID 07/16/17 Reported Protonix (Pantoprazole Sodium) 40 Mg Tab 40 Mg PO DAILY 07/16/17 Reported Cymbalta (Duloxetine HCl) 30 Mg Cap 1 Cap PO HS 07/16/17 Reported Cymbalta (Duloxetine Hcl) 60 Mg Cap 60 Mg PO DAILY 07/16/17 Reported (Dane Malcolm PA-C) Physical Exam Vital Signs (Last 8hrs): Last 8 Hrs Date Time Temp Pulse Resp B/P (MAP) Pulse Ox O2 Delivery O2 Flow Rate FiO2 07/17/17 10:59 84 15 96 Nasal Cannula 2.0 07/17/17 09:33 Nasal Cannula 2.0 07/17/17 07:07 83 16 93 Room Air 07/17/17 07:01 36.7 95 20 129/73 (91) 94 2.0 07/17/17 04:08 37.1 67 18 138/76 (96) 95 2.0 07/17/17 04:00 Nasal Cannula 2.0 General Appearance: Alert and Oriented x3. NAD. HEENT: Normocephalic Atraumatic. PER. EOMI, conjunctiva and sclera clear Neck: Bilateral carotid bruits. No overt JVD (examined in the beside chair): Respiratory: Diminished but clear to auscultation. No w/r/r. Cardiovascular: Somewhat distant heart sounds. Slightly irregular in the 60's. I would not appreciate a murmur. Abdomen: +BS. Soft. Nontender. Extremities: 1+ edema. No cyanosis. No pulses. Neuro: No focal deficits. Psychiatric: Somewhat of a flat affect. (Dane Malcolm PA-C) Data Last 24 Hours Test 10/15/17 12:06 07/16/17 16:25 07/16/17 16:41 07/16/17 20:02 Bedside Glucose 164 mg/dl 123 mg/dl 129 mg/dl Total Creatine Kinase 162 U/L Creatine Kinase MB 3.0 ng/ml Creatine Kinase MB Ratio 1.9 Troponin I < 0.015 ng/ml Test 07/17/17 00:21 07/17/17 06:08 07/17/17 07:25 Total Creatine Kinase 182 U/L Creatine Kinase MB 2.5 ng/ml Creatine Kinase MB Ratio 1.4 Troponin I < 0.015 ng/ml White Blood Count 4.24 K/uL Red Blood Count 4.14 M/uL Hemoglobin 12.1 g/dL Hematocrit 35.8 % Mean Corpuscular Volume 86.5 fL Mean Corpuscular Hemoglobin 29.2 pg Mean Corpuscular Hemoglobin Concent 33.8 g/dl RDW Standard Deviation 44.0 fL RDW Coefficient of Variation 14.0 % Platelet Count 164 K/uL Mean Platelet Volume 10.7 fL Sodium Level 142 mmol/L Potassium Level 3.7 mmol/L Chloride Level 106 mmol/L Carbon Dioxide Level 29 mmol/L Anion Gap 7.0 mmol/L Blood Urea Nitrogen 24 mg/dl Creatinine 2.27 mg/dl Est Creatinine Clear Calc Drug Dose 37.8 ml/min Estimated GFR () 32.2 Estimated GFR (Non- 27.8 BUN/Creatinine Ratio 10.4 Random Glucose 115 mg/dl Estimated Average Glucose 154 mg/dl Hemoglobin A1c 7.0 % Calcium Level 7.6 mg/dl Magnesium Level 2.5 mg/dl Triglycerides Level 373 mg/dl Cholesterol Level 133 mg/dl HDL Cholesterol 33 mg/dl LDL Cholesterol, Calculated 25 mg/dl VLDL Cholesterol, Calculated 75 mg/dl Cholesterol/HDL Ratio 4.0 Thyroid Stimulating Hormone (TSH) 2.070 uIu/ml Bedside Glucose 118 mg/dl Nuclear stress testing in January 2017 ([place]) was reportedly negative for ischemia. EKG dated and timed 16-JUL-2017 @ 06:47:11: Suspected ectopic atrial rhythm with 1st degree A-V block. Nonspecific T wave abnormality. EKG dated 07/17/2017 at 00:00:57: Probable NSR at 69 bpm with a first degree AV block and premature atrial complexes. Nonspecific ST-T wave abnormality. EKG dated 07/17/2017 at 07:05:52 reveals probable sinus rhythm with a first degree AV block, nonspecific T wave abnormality The EKG's above are of limited quality. Telemetry: Appears to be sinus with a long first degree AV block. PAC's. There are a couple of ventricular paced beats at 40 bpm. CXR: Single lead ICD TTE: Pending (Dane Malcolm PA-C) Assessment & Plan Markedly complex 72 year old male presenting with signs and symptoms appearing to be secondary to acute decompensated systolic congestive heart failure with patient responding favorably to 40 mg IV furosemide on presentation. Cardiology consultation requested due to concern for asymptomatic atrial fibrillation with a controlled ventricular response. Review of the available EKG 's, albeit somewhat poor in quality, as well as telemetry reveal what appears to be sinus rhythm with a long first degree AV block and possibly ectopic atrial rhythms with rare ventricular pacemaker activity at 40 bpm. I am not convinced he has atrial fibrillation at this point. RECOMMENDATIONS/PLAN: Obtain records from [place] outpatient editorial [place] Await TTE interpretation Device interrogation once manufacture known. Continue IV diuresis another day. Reduce QT prolonging agents if possible. (Dane Malcolm PA-C) CARDIOLOGY ATTENDING ADDENDUM: The patient was seen and personally examined. Agree with Dane Malcolm PA-C's findings and plans as documented above. Complex patient without much HX or Records. Will review records. (Chandana Pearce, )
--- NOTE | 2017-07-17 12:15 | ECHOCARDIOGRAM REPORT ---
*NOTICE TO RECEIVING DEMOCRAT AGENCY This information is strictly Confidential and protected under [place] law. [place] law prohibits you from making any further disclosure of this information unless further disclosure is expressly permitted by the written consent of the person to whom it pertains or is authorized by law. A general authorization for the release of medical or other information is not sufficient for this purpose. Hospital accepts no responsibility if the information is made available to any other person, INCLUDING THE PATIENT. Interpretation Summary * Name: SYDNEE MASSEY Study Date: 07/16/2017 02:23 PM BP: 190/73 mmHg * Patient Location: .[facility]\S\N281\S\2 HR: 72 * : 1945 (M/d/yyyy) Gender: Male Height: 70 in * Age: 72 yrs Ethnicity: AL Weight: 253 lb * Ordering Physician: Shruthi Zuleta * Referring Physician: Self, Referred * Performed By: Alexus Burkett RDCS * * Reason For Study: Chest Pain * BSA: 2.3 m2 * -- Conclusions -- * Technically limited study. * Left ventricular systolic function is normal. * Small area of akinesis involving the distal anterior wall and adjacent anteroseptum. * Ejection Fraction = 55-60%. * There is mild concentric left ventricular hypertrophy. * There is mild right ventricular hypertrophy. * Diastolic dysfunction, Grade II (pseudonormalization pattern). * No obvious valvular pathology. Procedure Details * A complete two-dimensional transthoracic echocardiogram was performed (2D, M-mode, Doppler and color flow Doppler). * The study was technically difficult. * The study was technically difficult, but visualization was adequate with the administration of Definity ultrasound contrast. * A contrast injection of Definity was performed to improve assessment of LV function. * Contrast was injected into an intravenous site in the left arm. * One vial of Definity ultrasound contrast was diluted in normal saline to a total volume of 10 ml. A total of '3' ml of solution was administered during imaging. * Lot # [id number] of Definity utilized for procedure. * Expiration date . * The attending nurse who injected the contrast agent was Bertha Carlos RN. Left Ventricle * The left ventricle is normal in size. * There is mild concentric left ventricular hypertrophy. * Ejection Fraction = 55-60%. * Left ventricular systolic function is normal. * Small area of akinesis involving the distal anterior wall and adjacent anteroseptum. Right Ventricle * There is mild right ventricular hypertrophy. * The right ventricular systolic function is normal. Atria * The left atrium is mildly dilated. * Right atrium not well visualized. Mitral Valve * The mitral valve is grossly normal. * No significant mitral valve stenosis. * Significant mitral regurgitation is absent. Tricuspid Valve * The tricuspid valve is not well visualized. * No significant tricuspid stenosis. * Significant tricuspid regurgitation is absent. Aortic Valve * The aortic valve is not well visualized. * The aortic valve opens well. * No hemodynamically significant valvular aortic stenosis. * There is no significant aortic regurgitation. Pulmonic Valve * The pulmonary valve is not well seen, but the Doppler examination is normal without significant regurgitation or stenosis. Great Vessels * The aortic root is normal size. * The pulmonary is not well visualized. Pericardium/Pleural * There is no pericardial effusion. Great Vessels * Inferior vena cava not well visualized. Left Ventricular Diastolic Function * Diastolic dysfunction, Grade II (pseudonormalization pattern). MMode 2D Measurements and Calculations IVSd 1.4 cm IVSs 1.9 cm LVIDd 5.5 cm LVIDs 3.9 cm LVPWd 1.5 cm LVPWs 2.1 cm IVS/LVPW 0.97 FS 29.9 % EDV(Teich) 148.4 ml ESV(Teich) 64.6 ml EF(Teich) 56.5 % EDV(cubed) 167.8 ml ESV(cubed) 57.8 ml EF(cubed) 65.5 % % IVS thick 32.2 % % LVPW thick 44.6 % LV mass(C)d 361.6 grams LV mass(C)dI 156.8 grams/m\S\2 LV mass(C)s 365.9 grams LV mass(C)sI 158.6 grams/m\S\2 SV(Teich) 83.8 ml SI(Teich) 36.3 ml/m\S\2 SV(cubed) 110.0 ml SI(cubed) 47.7 ml/m\S\2 Ao root diam 3.5 cm Ao root area 9.8 cm\S\2 ACS 2.0 cm LA dimension 4.9 cm LA/Ao 1.4 LVAd ap4 32.9 cm\S\2 LVLd ap4 8.5 cm EDV(MOD-sp4) 106.6 ml EDV(sp4-el) 107.7 ml LVAs ap4 16.2 cm\S\2 LVLs ap4 7.8 cm ESV(MOD-sp4) 27.9 ml ESV(sp4-el) 28.5 ml EF(MOD-sp4) 73.8 % EF(sp4-el) 73.5 % LVAd ap2 35.1 cm\S\2 LVLd ap2 8.2 cm EDV(MOD-sp2) 122.8 ml EDV(sp2-el) 127.3 ml LVAs ap2 20.3 cm\S\2 LVLs ap2 7.4 cm ESV(MOD-sp2) 47.1 ml ESV(sp2-el) 47.6 ml EF(MOD-sp2) 61.6 % EF(sp2-el) 62.6 % LVLd %diff -3.38 % EDV(MOD-bp) 114.2 ml LVLs %diff -5.76 % ESV(MOD-bp) 36.9 ml EF(MOD-bp) 67.7 % SV(MOD-sp4) 78.7 ml SI(MOD-sp4) 34.1 ml/m\S\2 SV(MOD-sp2) 75.7 ml SI(MOD-sp2) 32.8 ml/m\S\2 SV(MOD-bp) 77.3 ml SI(MOD-bp) 33.5 ml/m\S\2 SV(sp4-el) 79.1 ml SI(sp4-el) 34.3 ml/m\S\2 SV(sp2-el) 79.7 ml SI(sp2-el) 34.6 ml/m\S\2 Doppler Measurements and Calculations MV E max loren 107.8 cm/sec MV A max loren 82.6 cm/sec MV E/A 1.3 MV P1/2t max loren 111.3 cm/sec MV P1/2t 76.5 msec MVA(P1/2t) 2.9 cm\S\2 MV dec slope 426.0 cm/sec\S\2 MV dec time 0.14 sec Ao V2 max 118.2 cm/sec Ao max PG 5.6 mmHg Ao max PG (full) 3.5 mmHg LV V1 max PG 2.1 mmHg LV V1 max 72.6 cm/sec PA V2 max 88.9 cm/sec PA max PG 3.2 mmHg TR max loren 251.3 cm/sec
[2017-07-17] MEDS: DOXYCYCLINE HYCLATE 100 MG CAP PO SCH ×2 (12:29→22:57)
--- NOTE | 2017-07-17 17:07 | Progress Note ---
Subjective Date of Service: Jul 17, 2017. Subjective Pt evaluation today including: conversation w/ patient, physical exam, lab review, review of studies, review of inpatient medication list Saw/examined the patient in room 281 He's doing better today breathing improved today very weak when standing up Problem List Medical Problems: (1) Hypertension Status: Acute (2) Hypoxia Status: Acute (3) SOB (shortness of breath) Status: Acute Review of Systems Constitutional: + weakness, No fever, No chills Respiratory: + shortness of breath (improving), + dyspnea on exertion, No cough , No sputum, No wheezing, No dyspnea at rest, No hemoptysis Cardiac: No chest pain Abdomen: No pain, No nausea, No vomiting, No diarrhea Medications Current Inpatient Medications Medications (Trade) Dose Ordered Sig/Lashae Route Start Time Stop Time Status Last Admin Dose Admin Heparin Sodium (Porcine) (Heparin Sq 5000 Unit/0.5ml) 5,000 unit Q8 SQ 07/16/17 14:00 08/15/17 13:59 07/17/17 14:10 5,000 UNIT Insulin Glargine (Lantus Solostar Pen) 45 units Q12 SC 07/16/17 21:00 08/15/17 20:59 07/17/17 08:14 45 UNITS Insulin Aspart (novoLOG ASPART) SLIDING SCALE If C... ACHS SC 07/16/17 11:00 08/15/17 10:59 07/17/17 12:37 3 UNITS Glucose (Glucose 40% Gel) 15-30 GRAMS 15 GRAMS... UD PRN PO 07/16/17 10:45 08/15/17 10:44 Glucose (Glucose Chew Tab) 4-8 Tablets 4 Tabl... UD PRN PO 07/16/17 10:45 08/15/17 10:44 Dextrose (Dextrose 50% 50ML Syringe) 25-50ML OF 50% DW IV FOR... UD PRN IV 07/16/17 10:45 08/15/17 10:44 Glucagon (Glucagon Inj) 1 mg UD PRN SQ 07/16/17 10:45 08/15/17 10:44 Amlodipine Besylate (Norvasc Tab) 10 mg DAILY PO 07/17/17 09:00 08/16/17 08:59 07/17/17 08:06 10 MG Clopidogrel Bisulfate (plAVix TAB) 75 mg DAILY PO 07/17/17 09:00 08/16/17 08:59 07/17/17 08:06 75 MG Duloxetine HCl (Cymbalta Cap) 30 mg HS PO 07/16/17 21:00 08/15/17 20:59 07/16/17 20:48 30 MG Duloxetine HCl (Cymbalta Cap) 60 mg DAILY PO 07/17/17 09:00 08/16/17 08:59 07/17/17 08:07 60 MG Imipramine HCl (Tofranil Tab) 50 mg HS PO 07/16/17 21:00 08/15/17 20:59 07/16/17 20:46 50 MG Imipramine HCl (Tofranil Tab) 25 mg QAM PO 07/17/17 09:00 08/16/17 08:59 07/17/17 08:05 25 MG Levothyroxine Sodium (Synthroid Tab) 50 mcg DAILYBB PO 07/17/17 06:30 08/16/17 06:59 07/17/17 05:50 50 MCG Magnesium Oxide (Mag-Ox Tab) 400 mg BID PO 07/16/17 21:00 08/15/17 20:59 07/17/17 08:05 400 MG Metoprolol Succinate (Toprol Xl Tab) 37.5 mg HS PO 07/16/17 21:00 08/15/17 20:59 07/16/17 20:47 37.5 MG Multivitamins (Multivitamin Tab) 1 tab DAILY PO 07/17/17 09:00 08/16/17 08:59 07/17/17 08:07 1 TAB Pantoprazole Sodium (Protonix Tab) 40 mg DAILY PO 07/17/17 09:00 08/16/17 08:59 07/17/17 08:06 40 MG Pregabalin (Lyrica Cap) 150 mg BID PO 07/16/17 21:00 08/15/17 20:59 07/17/17 08:27 150 MG Rosuvastatin Calcium (Crestor Tab) 40 mg DAILY PO 07/17/17 09:00 08/16/17 08:59 07/17/17 08:07 40 MG Bupropion HCl (Wellbutrin-Sr Tab) 150 mg BID PO 07/16/17 21:00 08/15/17 20:59 07/17/17 08:07 150 MG Miscellaneous Information (Order Awaiting Action) 1 ea QS N/A 07/16/17 16:00 08/15/17 15:59 Albuterol/ Ipratropium (Duoneb) 3 ml QIDR INH 07/16/17 12:00 08/15/17 11:59 07/17/17 15:13 3 ML Doxycycline Hyclate (Vibramycin Cap) 100 mg BID@1100,2300 PO 07/16/17 23:00 07/18/17 10:59 07/17/17 12:29 100 MG Sodium Chloride ([place] Nasal [place]) 1 sprays PRN PRN NA 07/16/17 16:45 08/15/17 16:44 Promethazine HCl 12.5 mg/Sodium Chloride 50.5 ml @ 204 mls/hr Q6H PRN IV 07/16/17 22:15 08/15/17 22:14 07/16/17 22:29 204 MLS/HR Objective Vital Signs Date Time Temp Pulse Resp B/P (MAP) Pulse Ox O2 Delivery O2 Flow Rate FiO2 07/17/17 15:42 36.6 61 20 134/83 (100) 96 2.0 07/17/17 15:15 78 16 97 Nasal Cannula 2.0 07/17/17 12:01 36.5 60 20 127/67 (87) 97 Nasal Cannula 2.0 07/17/17 12:00 Nasal Cannula 2.0 07/17/17 10:59 84 15 96 Nasal Cannula 2.0 07/17/17 09:33 Nasal Cannula 2.0 07/17/17 07:07 83 16 93 Room Air 07/17/17 07:01 36.7 95 20 129/73 (91) 94 2.0 07/17/17 04:08 37.1 67 18 138/76 (96) 95 2.0 07/17/17 04:00 Nasal Cannula 2.0 07/17/17 00:00 37.0 71 18 134/68 (90) 96 2.0 07/17/17 00:00 Nasal Cannula 2.0 07/16/17 20:45 76 163/85 (111) 07/16/17 20:00 Nasal Cannula 2.0 10/15/17 19:29 36.6 76 20 175/87 (116) 99 Room Air 07/16/17 19:08 86 16 93 Room Air Physical Exam General Appearance: no apparent distress, + obese Respiratory/Chest: no respiratory distress, no accessory muscle use, + decreased breath sounds Cardiovascular: regular rate, rhythm, no edema, no murmur Abdomen: normal bowel sounds, non tender, soft Extremities: normal inspection, no pedal edema Laboratory Results Last 24 Hours Test 07/16/17 20:02 07/17/17 00:21 07/17/17 06:08 07/17/17 07:25 Bedside Glucose 129 mg/dl 118 mg/dl Total Creatine Kinase 182 U/L Creatine Kinase MB 2.5 ng/ml Creatine Kinase MB Ratio 1.4 Troponin I < 0.015 ng/ml White Blood Count 4.24 K/uL Red Blood Count 4.14 M/uL Hemoglobin 12.1 g/dL Hematocrit 35.8 % Mean Corpuscular Volume 86.5 fL Mean Corpuscular Hemoglobin 29.2 pg Mean Corpuscular Hemoglobin Concent 33.8 g/dl RDW Standard Deviation 44.0 fL RDW Coefficient of Variation 14.0 % Platelet Count 164 K/uL Mean Platelet Volume 10.7 fL Sodium Level 142 mmol/L Potassium Level 3.7 mmol/L Chloride Level 106 mmol/L Carbon Dioxide Level 29 mmol/L Anion Gap 7.0 mmol/L Blood Urea Nitrogen 24 mg/dl Creatinine 2.27 mg/dl Est Creatinine Clear Calc Drug Dose 37.8 ml/min Estimated GFR () 32.2 Estimated GFR (Non- 27.8 BUN/Creatinine Ratio 10.4 Random Glucose 115 mg/dl Estimated Average Glucose 154 mg/dl Hemoglobin A1c 7.0 % Calcium Level 7.6 mg/dl Magnesium Level 2.5 mg/dl Triglycerides Level 373 mg/dl Cholesterol Level 133 mg/dl HDL Cholesterol 33 mg/dl LDL Cholesterol, Calculated 25 mg/dl VLDL Cholesterol, Calculated 75 mg/dl Cholesterol/HDL Ratio 4.0 Thyroid Stimulating Hormone (TSH) 2.070 uIu/ml Test 07/17/17 11:48 07/17/17 16:20 Bedside Glucose 119 mg/dl 119 mg/dl Assessment and Plan This is a 72 year old male with a PMH of CAD s/p CABGx2, Hx. of Cardiac Arrest and V-Fib s/p AICD placement, insulin dependent DM2 with complications including peripheral vascular disease s/p R foot transmetatarsal amputation, CKD stage IV, JOSE on nocturnal O2, Hypothyroidism, Mood Disorder with depression - presents with shortness of breath Shortness of Breath 07/17 Possibly Diastolic CHF? given another dose of IV Lasix as per cardiology echo performed showing a Grade II diastolic dysfunction with preserved EF continue doxycycline ordered PT/OT 07/16 unsure of the cause of SOB; possibly obesity-hypoventilation, worsening JOSE, bronchitis, CHF, or ACS will check an echo; was given Lasix in the ED started on Doxycycline will monitor in tele, trend cardiac enzymes recheck CXR in AM nocturnal pulse ox nocturnal O2 and intermittent O2 throughout the day nebs PRN Insulin Dependent DM2 patient is on a high dose of insulin, takes 52 units twice daily of Lantus as well as a sliding scale of Novolog will check an updated Ha1c Start with 45 units Lantus BID and work our way up monitor BSGs AC and HS HTN uncontrolled BP > 180/100 on admission patient did not take morning medications given Hydralazine in the ED gave dose of amlodipine, monitor BP and we will adjust meds accordingly CKD stage IV patient states that he was to have further kidney w/up creatinine at one point went up to >4 currently creatinine is down to 2.1 as per family request, would like to see nephrology consulted nephrology, received one dose of Lasix in the ED Hx. of CAD s/p CABGx2 unsure if this is atypical ACS related shortness of breath therefore, monitor in tele - trend cardiac enzymes check an echo continue current medications Hx. of cardiac arrest and V-Fib s/p AICD JOSE did not tolerate CPAP uses 2L O2 nocturnally check nocturnal pulse ox as SOB is worse at night Hypothyroidism continue current dose of Synthroid Mood Disorder and Depression continue current medications DVT ppx subq heparin FULL CODE
[2017-07-17] MEDS: DULOXETINE (CYMBALTA) 30 MG CAP PO SCH (21:01)
[2017-07-17] MEDS: IMIPRAMINE HCL 50 MG TAB PO SCH (21:03)
[2017-07-17] MEDS: METOPROLOL SUCC 25MG EXT REL TAB PO SCH (21:04)
[2017-07-18] VITALS (14 sets, daily range): BP systolic 130–172; BP diastolic 65–84; PULSE 62–78; TEMP 36.4–36.9; O2SAT 91–97; Ht 180.3 cm; Wt 111.4 kg
[2017-07-18 05:47] LABS: MEAN CELL VOLUME 86.4 fL (80-100); MEAN CORPUSCULAR HEMOGLOBIN 28.5 pg (25-34); MEAN PLATELET VOLUME 10.3 fL (7.4-10.4); PLATELET COUNT 168 K/uL (130-400); RED BLOOD COUNT 4.28 M/uL (4.7-6.1); WHITE BLOOD COUNT 3.92 K/uL (4.8-10.8)
[2017-07-18] MEDS: HEPARIN SOD 5000 UNIT/0.5 ML CARP SQ SCH ×3 (05:50→20:29)
[2017-07-18] MEDS: LEVOTHYROXINE 50 MCG TAB PO SCH (05:52)
[2017-07-18 06:19] LABS: BUN/CREATININE RATIO 11.8 (10-20); CREATININE 2.56 mg/dl (0.60-1.40); POTASSIUM 3.4 mmol/L (3.5-5.1)
[2017-07-18] MEDS: ALBUT/IPRATROP 3MG/0.5MG NEB 3 ML VIAL INH SCH (06:53)
[2017-07-18] MEDS: INSULIN ASPART 100 UNITS/ML 3 ML PEN SC SCH ×4 (08:28→20:29)
[2017-07-18] MEDS: MULTIVITAMIN TAB PO SCH (08:30)
[2017-07-18] MEDS: DULOXETINE HCL 60 MG CAP PO SCH (08:30)
[2017-07-18] MEDS: ROSUVASTATIN CALCIUM 20 MG TAB PO SCH (08:30)
[2017-07-18] MEDS: MAGNESIUM OXIDE 400 MG TAB PO SCH ×2 (08:30→20:32)
[2017-07-18] MEDS: AMLODIPINE BESYLATE 5 MG TAB PO SCH (08:31)
[2017-07-18] MEDS: PANTOprazole SOD 40 MG TAB PO SCH (08:31)
[2017-07-18] MEDS: CLOPIDOGREL BISULFATE 75 MG TAB PO SCH (08:31)
[2017-07-18] MEDS: IMIPRAMINE HCL 25 MG TAB PO SCH (08:31)
[2017-07-18] MEDS: BuPROPion SR 150 MG TABCR PO SCH ×2 (08:31→20:31)
[2017-07-18] MEDS: PREGABALIN 150 MG CAP PO SCH ×2 (08:38→20:30)
--- NOTE | 2017-07-18 09:44 | Cardiology Follow-Up ---
Subjective General Date of Service: Jul 18, 2017. Chief Complaint: SOB Pt evaluation today including: conversation w/ patient, physical exam, chart review, lab review, review of studies, review of inpatient medication list History of Present Illness Patient seen and examined. Feels considerably better overall. Dyspnea improved. Fluid retention improved. No chest pain. No palpitations. Occasionally feels "jumpy inside." Telemetry: Sinus with a first degree AV block, PAC's, perhaps periods of Mobitz type I, and rare ventricular pacing. EKG this morning reveals sinus rhythm with a first degree AV block and premature supraventricular complexes. Nonspecific intra-ventricular conduction delay. Nonspecific T wave abnormality. QT looks much shorter than reported. July 16, 2017 TTE Interpretation Summary ([facility], Dr. Celestin): Technically limited study. Left ventricular systolic function is normal. Small area of akinesis involving the distal anterior wall and adjacent anteroseptum. Ejection Fraction = 55-60%. There is mild concentric left ventricular hypertrophy. There is mild right ventricular hypertrophy. Diastolic dysfunction, Grade II ( pseudonormalization pattern). No obvious valvular pathology. Allergies Coded Allergies: Moxifloxacin (Unverified Adverse Reaction, Severe, "DEPLETED POTASSIUM AND MAGNESIUM. CARDIAC ARREST" PT , 07/16/17) Social History Hx Tobacco Use In Past Year?: No Hx Alcohol Use - Type And Amou: No Hx Substance Use - Type And Am: No Problem List Medical Problems: (1) Hypertension Status: Acute (2) Hypoxia Status: Acute (3) SOB (shortness of breath) Status: Acute Physical Exam Vital Signs Last Vital Signs Documentation Date Time Temp Pulse Resp B/P (MAP) Pulse Ox O2 Delivery O2 Flow Rate FiO2 07/18/17 07:30 94 Nasal Cannula 2.0 07/18/17 07:28 36.7 65 20 172/78 (109) Physical Exam Constitutional: Level of Distress: NAD Psychiatric: Mental Status: active & alert Orientation: to time, to place, to person Memory: recent memory normal, remote memory normal Head: normocephalic, atraumatic Neck: pertinent finding (Normal JVP) Lungs: Respiratory effort: no dyspnea Auscultation: no wheezing, no rales/crackles, no rhonchi, deminished air movement, decreased breath sounds Cardiovascular: Heart Auscultation: no murmurs, no rubs, irregular rate rhythm Peripheral Pulses: Dorsalis Pedis Pulse: absent on the left, absent on the right Extremities: no cyanosis, no clubbing, edema (Mild edema) Neurologic: Cranial Nerves: grossly intact Assessment and Plan Assessment and Plan Complex 72 year old male presenting with acute on chronic dyspnea. Evidence of acute decompensated diastolic congestive heart failure has improved following one dose of 40 mg IV furosemide. Blood pressures have improved though remain intermittently elevated. Cardiology consultation requested due to concern for asymptomatic atrial fibrillation with a controlled ventricular response however review of the EKG's as well as telemetry are without overt atrial fibrillation. RECOMMENDATIONS/PLAN: Trial Isordil 5 mg three times per day in an attempt to aid symptoms as well as blood pressure. Utilize oral furosemide 20 mg 2-3 days per week only as needed after discharge. 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 CARDIOLOGY ATTENDING ADDENDUM: The patient was seen and personally examined. Agree with Dane Malcolm PA-C's findings and plans as documented above. Laboratory Results Last 24 Hours Test 07/17/17 11:48 07/17/17 16:20 07/17/17 20:25 07/18/17 05:27 Bedside Glucose 119 mg/dl 119 mg/dl 129 mg/dl White Blood Count 3.92 K/uL Red Blood Count 4.28 M/uL Hemoglobin 12.2 g/dL Hematocrit 37.0 % Mean Corpuscular Volume 86.4 fL Mean Corpuscular Hemoglobin 28.5 pg Mean Corpuscular Hemoglobin Concent 33.0 g/dl RDW Standard Deviation 44.6 fL RDW Coefficient of Variation 14.2 % Platelet Count 168 K/uL Mean Platelet Volume 10.3 fL Sodium Level 143 mmol/L Potassium Level 3.4 mmol/L Chloride Level 108 mmol/L Carbon Dioxide Level 29 mmol/L Anion Gap 6.0 mmol/L Blood Urea Nitrogen 30 mg/dl Creatinine 2.56 mg/dl Est Creatinine Clear Calc Drug Dose 33.6 ml/min Estimated GFR () 27.8 Estimated GFR (Non- 24.0 BUN/Creatinine Ratio 11.8 Random Glucose 72 mg/dl Calcium Level 8.0 mg/dl Test 07/18/17 07:19 07/18/17 07:44 Bedside Glucose 64 mg/dl 88 mg/dl
[2017-07-18] MEDS ORDERED: PHARMACY GLYCEMIC MGMT CONSULT PRN (09:45)
[2017-07-18] MEDS ORDERED: POTASSIUM CHLORIDE 20 MEQ TABCR PO ONE (09:45)
--- NOTE | 2017-07-18 11:17 | Pharmacy Progress Note ---
Glycemic Control Intl Consult Date of Service Jul 18, 2017. Scope Glycemic Pharmacist consulted by Dr Zuleta on 07/18/17 for glycemic control and to write orders per [facility] inpatient glycemic control protocol Objective Weight (Kilograms): 114.600 Accuchecks BSG (last 24hrs): Test 07/17/17 11:48 07/17/17 16:20 07/17/17 20:25 07/18/17 05:27 Bedside Glucose 119 mg/dl (70-99) 119 mg/dl (70-99) 129 mg/dl (70-99) Random Glucose 72 mg/dl (70-99) Test 07/18/17 07:19 07/18/17 07:44 Bedside Glucose 64 mg/dl (70-99) 88 mg/dl (70-99) Laboratory Data (last 24hrs) Test 07/18/17 05:27 Anion Gap 6.0 mmol/L BUN/Creatinine Ratio 11.8 Blood Urea Nitrogen 30 mg/dl Creatinine 2.56 mg/dl Potassium Level 3.4 mmol/L Sodium Level 143 mmol/L White Blood Count 3.92 K/uL HbA1c Test 07/17/17 06:08 Hemoglobin A1c 7.0 % (4.5-5.6) H Recent Pertinent Medications Outpatient Anti-diabetic Regimen: * Lantus 52 units in the morning and evening plus Novolog 29 units AC and correction factor of 1 unit for every 50 mg/dL over 150 mg/dL The patient is currently receiving: * Basal insulin: Lantus 45 units every 12 hours * Correctional Insulin: Novolog Correction per scale ACHS Goal Range: Low 120 mg/dL - High 160 mg/dL Correction Factor: 15 mg/dL/unit * Prandial insulin: Per carb ratio of 1 unit per 10 grams CHO consumed Risk Factors for Insulin Resistance: * Infection: possible pulmonary infection on doxycycline * Diet: type 2 diabetic diet Assessment & Plan ASSESSMENT: * ADA & AACE recommend a goal blood sugar range 140-180 mg/dl for the majority of critically ill & non-critically ill patients. However, more stringent targets may be selected in individual cases. Will utilize more stringent goal of 110-140 mg/dl based on patient age & comorbidities. Additionally, tighter glycemic control is warranted to facilitate infection healing. * Mr Boswell is a 72 y/o M with a complex cardiac PMH history including CABG x 2 and cardiac arrest with VFib and subsequent ACID placement who was admitted with SBO. He was initially placed on a reduced Lantus dose of 45 units twice daily (takes 52 units twice daily at home) - he received 3 doses. His blood sugars yesterday ranged from 118-129 mg/dL; however, his fasting blood sugar was 64 mg/dL this morning. * At home, the patient receives around ~191 units of insulin/day; however, yesterday he received around 97 units (~50% of home dose). This appears appropriate especially when patients are admitted on larger doses of insulin. Patient's renal function also continues to worsen with diuresing. * In order to create a regimen today, the total daily dose yesterday will be utilized and reduced by ~20% to 80 units per day. 50% will be taken to make Lantus 20 units twice daily and then the appropriate parameters for correctional insulin will be utilized for estimated total daily dose of 80 units /day. Will start Lantus with lunch to give patient's blood sugar time to recover. PLAN FOR INPATIENT GLYCEMIC CONTROL: * Basal insulin with LANTUS 20 units SQ BID * Correctional Insulin with NOVOLOG per scale ACHS or Q6hrs while NPO * Goal Range: Low 110 mg/dL - High 140 mg/dL * Correction Factor: 20 mg/dL/unit * Nutritional / Prandial insulin per carb ratio of 1 unit per 7 grams CHO consumed * Please note that the plan above was derived based on current level of insulin resistance and hospital stress. These recommendations are appropriate for inpatient admission only. Plan of care upon discharge will need to be reassessed to avoid potential outpatient hypo/hyperglycemia. Thank you.
[2017-07-18] MEDS: ISOSORBIDE DINITRATE 5 MG TAB PO SCH ×2 (11:55→16:24)
[2017-07-18] MEDS: INSULIN GLARGINE SOLOSTAR 100 UNITS/ML 3 ML PEN SC SCH ×2 (11:58→20:28)
[2017-07-18] MEDS ORDERED: INSULIN GLARGINE SOLOSTAR 100 UNITS/ML 3 ML PEN SC SCH (13:00)
--- NOTE | 2017-07-18 13:29 | Progress Note ---
Medicine Progress Note Date & Time of Visit: Jul 18, 2017 at 13:20. Subjective patient seen sleeping but easily rousable states he feels much better breathing has improved significantly has occasional dry cough denies chest pain, palpitations, dizziness no other symptoms Objective Last 8 Hrs Date Time Temp Pulse Resp B/P (MAP) Pulse Ox O2 Delivery O2 Flow Rate FiO2 07/18/17 12:00 95 Nasal Cannula 2.0 07/18/17 11:15 36.6 70 16 150/66 (94) 95 Nasal Cannula 2.0 07/18/17 09:30 36.6 62 16 146/73 (97) 93 Nasal Cannula 2.0 07/18/17 07:30 94 Nasal Cannula 2.0 07/18/17 07:28 36.7 65 20 172/78 (109) 95 Oxymask 07/18/17 06:54 65 16 94 Nasal Cannula 2.0 Physical Exam: General- oriented x 3, not in distress, speaks in sentences with no effort Head- atraumatic Eyes- EOMI, anicteric ENT- oropharynx clear Neck- supple, no JVD Lungs- clear to auscultation bilaterally Heart- regular rhythm; no murmur, normal rate Abdomen- normal bowel sounds, soft, nontender Extremities- no pretibial edema, no calf tenderness; peripheral pulses intact Neuro- alert, oriented x 3;no gross focal deficits Skin- warm & dry Laboratory Results: Last 24 Hours Test 07/17/17 16:20 07/17/17 20:25 07/18/17 05:27 07/18/17 07:19 Bedside Glucose 119 mg/dl 129 mg/dl 64 mg/dl White Blood Count 3.92 K/uL Red Blood Count 4.28 M/uL Hemoglobin 12.2 g/dL Hematocrit 37.0 % Mean Corpuscular Volume 86.4 fL Mean Corpuscular Hemoglobin 28.5 pg Mean Corpuscular Hemoglobin Concent 33.0 g/dl RDW Standard Deviation 44.6 fL RDW Coefficient of Variation 14.2 % Platelet Count 168 K/uL Mean Platelet Volume 10.3 fL Sodium Level 143 mmol/L Potassium Level 3.4 mmol/L Chloride Level 108 mmol/L Carbon Dioxide Level 29 mmol/L Anion Gap 6.0 mmol/L Blood Urea Nitrogen 30 mg/dl Creatinine 2.56 mg/dl Est Creatinine Clear Calc Drug Dose 33.6 ml/min Estimated GFR () 27.8 Estimated GFR (Non- 24.0 BUN/Creatinine Ratio 11.8 Random Glucose 72 mg/dl Calcium Level 8.0 mg/dl Test 07/18/17 07:44 07/18/17 10:54 Bedside Glucose 88 mg/dl 269 mg/dl Assessment & Plan This is a 72 year old male with a PMH of CAD s/p CABGx2, Hx. of Cardiac Arrest and V-Fib s/p AICD placement, insulin dependent DM2 with complications including peripheral vascular disease s/p R foot transmetatarsal amputation, CKD stage IV, JOSE on nocturnal O2, Hypothyroidism, Mood Disorder with depression - presents with shortness of breath ACUTE ON LIKELY CHRONIC DIASTOLIC CHF - echo noted clinically improved with Lasix Isordil added will need daily Lasix and fluid restriction - possible component of Acute Bronchitis? on Doxycycline - appreciate Cardio SVC input DM 2 patient is on a high dose of insulin, takes 52 units twice daily of Lantus as well as a sliding scale of Novolog a1c 7.0 - (+) hypoglycemia - Lantus decreased appreciate Pharm SVC recommendations HTN improving Isordil added CKD stage IV patient states that he was to have further kidney w/up - crea trending up, baseline 2.4 GFR high 20s ,stable - will need to monitor crea while on Lasix - Nephrology consulted Hx. of CAD s/p CABGx2 Hx. of cardiac arrest and V-Fib s/p AICD cardiac markers negative echo noted on Plavix, Aspirin JOSE did not tolerate CPAP uses 2L O2 nocturnally check nocturnal pulse ox as SOB is worse at night -- needs O2 supplement at HS Hypothyroidism continue current dose of Synthroid Mood Disorder and Depression continue current medications DVT ppx subq heparin FULL CODE Disposition pending anticipate return home when medically stable and cleared by Cardiology Current Inpatient Medications: Current Inpatient Medications Medications (Trade) Dose Ordered Sig/Lashae Route Start Time Stop Time Status Last Admin Dose Admin Heparin Sodium (Porcine) (Heparin Sq 5000 Unit/0.5ml) 5,000 unit Q8 SQ 07/16/17 14:00 08/15/17 13:59 07/18/17 05:50 5,000 UNIT Insulin Aspart (novoLOG ASPART) SLIDING SCALE If C... ACHS SC 07/16/17 11:00 08/15/17 10:59 07/18/17 11:57 14 UNITS Glucose (Glucose 40% Gel) 15-30 GRAMS 15 GRAMS... UD PRN PO 07/16/17 10:45 08/15/17 10:44 Glucose (Glucose Chew Tab) 4-8 Tablets 4 Tabl... UD PRN PO 07/16/17 10:45 08/15/17 10:44 Dextrose (Dextrose 50% 50ML Syringe) 25-50ML OF 50% DW IV FOR... UD PRN IV 07/16/17 10:45 08/15/17 10:44 Glucagon (Glucagon Inj) 1 mg UD PRN SQ 07/16/17 10:45 08/15/17 10:44 Amlodipine Besylate (Norvasc Tab) 10 mg DAILY PO 07/17/17 09:00 08/16/17 08:59 07/18/17 08:31 10 MG Clopidogrel Bisulfate (plAVix TAB) 75 mg DAILY PO 07/17/17 09:00 08/16/17 08:59 07/18/17 08:31 75 MG Duloxetine HCl (Cymbalta Cap) 30 mg HS PO 07/16/17 21:00 08/15/17 20:59 07/17/17 21:01 30 MG Duloxetine HCl (Cymbalta Cap) 60 mg DAILY PO 07/17/17 09:00 08/16/17 08:59 07/18/17 08:30 60 MG Imipramine HCl (Tofranil Tab) 50 mg HS PO 07/16/17 21:00 08/15/17 20:59 07/17/17 21:03 50 MG Imipramine HCl (Tofranil Tab) 25 mg QAM PO 07/17/17 09:00 08/16/17 08:59 07/18/17 08:31 25 MG Levothyroxine Sodium (Synthroid Tab) 50 mcg DAILYBB PO 07/17/17 06:30 08/16/17 06:59 07/18/17 05:52 50 MCG Magnesium Oxide (Mag-Ox Tab) 400 mg BID PO 07/16/17 21:00 08/15/17 20:59 07/18/17 08:30 400 MG Metoprolol Succinate (Toprol Xl Tab) 37.5 mg HS PO 07/16/17 21:00 08/15/17 20:59 07/17/17 21:04 37.5 MG Multivitamins (Multivitamin Tab) 1 tab DAILY PO 07/17/17 09:00 08/16/17 08:59 07/18/17 08:30 1 TAB Pantoprazole Sodium (Protonix Tab) 40 mg DAILY PO 07/17/17 09:00 08/16/17 08:59 07/18/17 08:31 40 MG Pregabalin (Lyrica Cap) 150 mg BID PO 07/16/17 21:00 08/15/17 20:59 07/18/17 08:38 150 MG Rosuvastatin Calcium (Crestor Tab) 40 mg DAILY PO 07/17/17 09:00 08/16/17 08:59 07/18/17 08:30 40 MG Bupropion HCl (Wellbutrin-Sr Tab) 150 mg BID PO 07/16/17 21:00 08/15/17 20:59 07/18/17 08:31 150 MG Miscellaneous Information (Order Awaiting Action) 1 ea QS N/A 07/16/17 16:00 08/15/17 15:59 Sodium Chloride ([place] Nasal [place]) 1 sprays PRN PRN NA 07/16/17 16:45 08/15/17 16:44 Promethazine HCl 12.5 mg/Sodium Chloride 50.5 ml @ 204 mls/hr Q6H PRN IV 07/16/17 22:15 08/15/17 22:14 07/16/17 22:29 204 MLS/HR Albuterol/ Ipratropium (Combivent Respimat Inh) 1 puffs QID INH 07/18/17 13:00 08/17/17 12:59 Miscellaneous Information (Consult Glycemic Management Pharmacy) 1 ea UD PRN N/A 07/18/17 09:45 08/17/17 09:44 Isosorbide Dinitrate (Isordil Tab) 5 mg TID@0700,1200,1700 PO 07/18/17 12:00 08/17/17 11:59 07/18/17 11:55 5 MG Insulin Glargine (Lantus Solostar Pen) 20 units BID SC 07/18/17 11:30 08/17/17 11:29 10/17/17 11:58 20 UNITS Insulin Aspart (novoLOG ASPART) SLIDING SCALE If C... TODAY@0200 MA 07/19/17 02:00 07/19/17 02:01
[2017-07-18] MEDS: IPRATROPIUM BROMIDE/ALBUTEROL respimat INH INH SCH ×3 (13:49→20:32)
[2017-07-18] MEDS ORDERED: ASPIRIN 81 MG ECTAB PO ONE (14:00)
[2017-07-18] MEDS: DULOXETINE (CYMBALTA) 30 MG CAP PO SCH (20:31)
[2017-07-18] MEDS: IMIPRAMINE HCL 50 MG TAB PO SCH (20:34)
[2017-07-18] MEDS: METOPROLOL SUCC 25MG EXT REL TAB PO SCH (20:34)
[2017-07-19] VITALS (10 sets, daily range): BP systolic 110–164; BP diastolic 58–88; PULSE 61–74; TEMP 36.6–37; O2SAT 90–96
[2017-07-19] MEDS ORDERED: INSULIN ASPART 100 UNITS/ML 3 ML PEN SC SCH (02:00)
[2017-07-19] MEDS: HEPARIN SOD 5000 UNIT/0.5 ML CARP SQ SCH ×3 (05:15→21:48)
[2017-07-19] MEDS: LEVOTHYROXINE 50 MCG TAB PO SCH (05:18)
[2017-07-19] MEDS: ISOSORBIDE DINITRATE 5 MG TAB PO SCH ×3 (05:19→17:49)
[2017-07-19] MEDS: IMIPRAMINE HCL 25 MG TAB PO SCH (08:06)
[2017-07-19] MEDS: ASPIRIN 81 MG ECTAB PO SCH (08:06)
[2017-07-19] MEDS: MAGNESIUM OXIDE 400 MG TAB PO SCH ×2 (08:06→21:57)
[2017-07-19] MEDS: AMLODIPINE BESYLATE 5 MG TAB PO SCH (08:06)
[2017-07-19] MEDS: BuPROPion SR 150 MG TABCR PO SCH ×2 (08:07→21:54)
[2017-07-19] MEDS: CLOPIDOGREL BISULFATE 75 MG TAB PO SCH (08:07)
[2017-07-19] MEDS: MULTIVITAMIN TAB PO SCH (08:07)
[2017-07-19] MEDS: IPRATROPIUM BROMIDE/ALBUTEROL respimat INH INH SCH ×4 (08:07→21:53)
[2017-07-19] MEDS: ROSUVASTATIN CALCIUM 20 MG TAB PO SCH (08:07)
[2017-07-19] MEDS: DULOXETINE HCL 60 MG CAP PO SCH (08:07)
[2017-07-19] MEDS: PANTOprazole SOD 40 MG TAB PO SCH (08:07)
[2017-07-19] MEDS: INSULIN ASPART 100 UNITS/ML 3 ML PEN SC SCH ×4 (08:12→21:00)
[2017-07-19] MEDS: INSULIN GLARGINE SOLOSTAR 100 UNITS/ML 3 ML PEN SC SCH ×2 (08:12→21:47)
[2017-07-19] MEDS: PREGABALIN 150 MG CAP PO SCH ×2 (08:17→21:53)
--- NOTE | 2017-07-19 09:32 | Cardiology Follow-Up ---
Subjective General Date of Service: Jul 19, 2017. Chief Complaint: SOB History of Present Illness Patient seen and examined. No complaints. Feels better overall. No chest pain. No palpitations. Telemetry: Sinus in the 60's with a first degree AV block, PAC's, rare PVC in singles, and rare rare ventricular pacing. Allergies Coded Allergies: Moxifloxacin (Unverified Adverse Reaction, Severe, "DEPLETED POTASSIUM AND MAGNESIUM. CARDIAC ARREST" PT , 07/16/17) Social History Hx Tobacco Use In Past Year?: No Hx Alcohol Use - Type And Amou: No Hx Substance Use - Type And Am: No Problem List Medical Problems: (1) Hypertension Status: Acute (2) Hypoxia Status: Acute (3) SOB (shortness of breath) Status: Acute Physical Exam Vital Signs Last Vital Signs Documentation Date Time Temp Pulse Resp B/P (MAP) Pulse Ox O2 Delivery O2 Flow Rate FiO2 07/19/17 07:34 36.8 61 20 138/76 (96) 96 07/19/17 07:30 Nasal Cannula 2.0 Physical Exam Constitutional: Level of Distress: NAD Psychiatric: Mental Status: active & alert Orientation: to time, to place, to person Memory: recent memory normal, remote memory normal Head: normocephalic, atraumatic Neck: pertinent finding (Normal JVP) Lungs: Respiratory effort: no dyspnea Auscultation: no wheezing, no rales/crackles, no rhonchi Cardiovascular: Heart Auscultation: RRR, no murmurs, no rubs Peripheral Pulses: Dorsalis Pedis Pulse: absent on the left, absent on the right Extremities: no cyanosis, no clubbing, edema (Mild edema) Neurologic: Cranial Nerves: grossly intact Assessment and Plan Assessment and Plan Complex 72 year old male presenting with acute on chronic dyspnea, evidence of acute decompensated diastolic congestive heart failure - resolved. Blood pressures have improved with the addition of Isordil, without adverse issues at this point. No overt atrial fibrillation observed. RECOMMENDATIONS/PLAN: As ordered/prescribed. Increase activity as tolerated. Outpatient Cardiology follow-up with Dr. Thurston. Please call if any questions or concerns. CARDIOLOGY ATTENDING ADDENDUM: The patient was seen and personally examined. Agree with Dane Malcolm PA-C's findings and plans as documented above. Laboratory Results Last 24 Hours Test 07/18/17 10:54 10/17/17 16:04 07/18/17 20:15 07/19/17 02:16 Bedside Glucose 269 mg/dl 75 mg/dl 122 mg/dl 107 mg/dl Test 07/19/17 07:20 Bedside Glucose 113 mg/dl
--- NOTE | 2017-07-19 09:53 | Pharmacy Progress Note ---
Glycemic Control Progress Note Date of Service Jul 19, 2017. Scope Glycemic Pharmacist consulted for glycemic control to write orders per [facility] inpatient glycemic control protocol. Objective Accuchecks BSG (last 24hrs): Test 07/18/17 10:54 07/18/17 16:04 07/18/17 20:15 07/19/17 02:16 Bedside Glucose 269 mg/dl (70-99) 75 mg/dl (70-99) 122 mg/dl (70-99) 107 mg/dl (70-99) Test 07/19/17 07:20 07/19/17 09:45 Bedside Glucose 113 mg/dl (70-99) HbA1c: Test 07/17/17 06:08 Hemoglobin A1c 7.0 % (4.5-5.6) H Recent Pertinent Medications Outpatient Anti-diabetic Regimen: * Lantus 52 units in the morning and evening plus Novolog 29 units AC and correction factor of 1 unit for every 50 mg/dL over 150 mg/dL The patient is currently receiving: * Basal insulin: Lantus 20 units every 12 hours * Correctional Insulin: Novolog Correction per scale ACHS Goal Range: Low 110 mg/dL - High 140 mg/dL Correction Factor: 20 mg/dL/unit * Prandial insulin: Per carb ratio of 1 unit per 7 grams CHO consumed Risk Factors for Insulin Resistance: * Diet: type 2 diabetic diet Outpatient Anti-Diabetic Meds see above Assessment & Plan ASSESSMENT: * ADA & AACE recommend a goal blood sugar range 140-180 mg/dl for the majority of critically ill & non-critically ill patients. However, more stringent targets may be selected in individual cases. Will utilize more stringent goal of 110-140 mg/dl based on patient age & comorbidities. Additionally, tighter glycemic control is warranted to facilitate infection healing. * Mr Boswell is a 72 y/o M with a complex cardiac PMH history including CABG x 2 and cardiac arrest with VFib and subsequent ACID placement who was admitted with SBO. He was initially placed on a reduced Lantus dose of 45 units twice daily (takes 52 units twice daily at home) - yesterday's fasting blood sugar was 64 mg/dL. The prior day, the patient had received 97 units of insulin ... This was reduced by 20% and a total daily dose of 80 units was estimated. * Lantus 20 units twice daily was started yesterday. Fasting this morning was 113 mg/dL... will continue Lantus dose. Most likely this will increase as the patient still has some effects from Lantus 45 units twice daily on board. * Post-prandial blood sugars are within range. Patient received no additional coverage overnight. Continue current parameters. PLAN FOR INPATIENT GLYCEMIC CONTROL: * Basal insulin with LANTUS 20 units SQ BID * Correctional Insulin with NOVOLOG per scale ACHS or Q6hrs while NPO * Goal Range: Low 110 mg/dL - High 140 mg/dL * Correction Factor: 20 mg/dL/unit * Nutritional / Prandial insulin per carb ratio of 1 unit per 7 grams CHO consumed OUTPATIENT RECOMMENDATIONS * Patient's HbA1C within goal for patient (goal for patient is 7.6-8.0% based upon Elements of Diabetes Care Scoring Scale) .... as long as patient has no hypoglycemia at home it is reasonable to continue current regimen. Thank you.
[2017-07-19 10:51] LABS: CALCIUM 8.4 mg/dl (8.5-10.1); CREATININE 2.68 mg/dl (0.60-1.40); POTASSIUM 3.9 mmol/L (3.5-5.1)
--- NOTE | 2017-07-19 13:47 | Progress Note ---
Medicine Progress Note Date & Time of Visit: Jul 19, 2017 at 13:40. Subjective patient was seen being assisted by the respiratory therapist and HUM[employer] ADVISOR LEAD, he was upright but became very shaky on his legs, had to be assisted by 2 other RNs he sat on the wheelchair and had a difficult trying to stand up again, noted to be very shaky on his legs PT notes today reveal that patient was very tremulous during PT eval today yesterday, patient reported that he has episodes of resting tremors/shaking of his legs and arms otherwise, patient states he feels fine overall denies dyspnea, chest pain, dizziness no other symptoms Objective Last 8 Hrs Date Time Temp Pulse Resp B/P (MAP) Pulse Ox O2 Delivery O2 Flow Rate FiO2 07/19/17 11:20 36.7 62 18 142/70 (94) 94 07/19/17 07:34 36.8 61 20 138/76 (96) 96 07/19/17 07:30 96 Nasal Cannula 2.0 Physical Exam: General- oriented x 3, not in distress, speaks in sentences with no effort Eyes- anicteric ENT- oropharynx clear Neck- no JVD Lungs- clear to breath sounds bilaterally Heart- regular rhythm; no murmur, normal rate Abdomen- normal bowel sounds, soft, nontender Extremities- no pretibial edema, no calf tenderness; peripheral pulses intact Neuro- alert, oriented x 3;no gross focal deficits Skin- warm & dry Laboratory Results: Last 24 Hours Test 07/18/17 16:04 07/18/17 20:15 07/19/17 02:16 07/19/17 07:20 Bedside Glucose 75 mg/dl 122 mg/dl 107 mg/dl 113 mg/dl Test 07/19/17 09:45 07/19/17 11:26 Sodium Level 141 mmol/L Potassium Level 3.9 mmol/L Chloride Level 106 mmol/L Carbon Dioxide Level 30 mmol/L Anion Gap 5.0 mmol/L Blood Urea Nitrogen 32 mg/dl Creatinine 2.68 mg/dl Est Creatinine Clear Calc Drug Dose 32.1 ml/min Estimated GFR () 26.3 Estimated GFR (Non- 22.7 BUN/Creatinine Ratio 12.0 Random Glucose 144 mg/dl Calcium Level 8.4 mg/dl Bedside Glucose 144 mg/dl Assessment & Plan This is a 72 year old male with a PMH of CAD s/p CABGx2, Hx. of Cardiac Arrest and V-Fib s/p AICD placement, insulin dependent DM2 with complications including peripheral vascular disease s/p R foot transmetatarsal amputation, CKD stage IV, JOSE on nocturnal O2, Hypothyroidism, Mood Disorder with depression - presents with shortness of breath ACUTE ON LIKELY CHRONIC DIASTOLIC CHF, Resolved - echo noted clinically improved with Lasix one dose Isordil TID added will need Lasix PRN 2-3x a week, PRN for CHF symptoms, but need to closely watch crea - possible component of Acute Bronchitis? on Doxycycline - appreciate Cardio SVC input TREMORS/SHAKES - unclear etiology - will consult Neurology PT recommends Rehab will consult Case Management DM 2 patient is on a high dose of insulin, takes 52 units twice daily of Lantus as well as a sliding scale of Novolog a1c 7.0 - (+) hypoglycemia the other day - Lantus decreased appreciate Pharm SVC recommendations HTN improving Isordil added CKD stage IV patient states that he was to have further kidney w/up - crea trending up, baseline 2.4 today 2.6 - will need to monitor crea - Nephrology consulted Hx. of CAD s/p CABGx2 Hx. of cardiac arrest and V-Fib s/p AICD cardiac markers negative echo noted on Plavix, Aspirin JOSE did not tolerate CPAP uses 2L O2 nocturnally check nocturnal pulse ox as SOB is worse at night -- needs O2 supplement at HS Hypothyroidism continue current dose of Synthroid Mood Disorder and Depression continue current medications DVT ppx subq heparin FULL CODE Disposition PT recommending Rehab Current Inpatient Medications: Current Inpatient Medications Medications (Trade) Dose Ordered Sig/Lashae Route Start Time Stop Time Status Last Admin Dose Admin Heparin Sodium (Porcine) (Heparin Sq 5000 Unit/0.5ml) 5,000 unit Q8 SQ 07/16/17 14:00 08/15/17 13:59 07/19/17 05:15 5,000 UNIT Insulin Aspart (novoLOG ASPART) SLIDING SCALE If C... ACHS SC 07/16/17 11:00 08/15/17 10:59 07/19/17 12:49 7 UNITS Glucose (Glucose 40% Gel) 15-30 GRAMS 15 GRAMS... UD PRN PO 07/16/17 10:45 08/15/17 10:44 Glucose (Glucose Chew Tab) 4-8 Tablets 4 Tabl... UD PRN PO 07/16/17 10:45 08/15/17 10:44 Dextrose (Dextrose 50% 50ML Syringe) 25-50ML OF 50% DW IV FOR... UD PRN IV 07/16/17 10:45 08/15/17 10:44 Glucagon (Glucagon Inj) 1 mg UD PRN SQ 07/16/17 10:45 08/15/17 10:44 Amlodipine Besylate (Norvasc Tab) 10 mg DAILY PO 07/17/17 09:00 08/16/17 08:59 07/19/17 08:06 10 MG Clopidogrel Bisulfate (plAVix TAB) 75 mg DAILY PO 07/17/17 09:00 08/16/17 08:59 07/19/17 08:07 75 MG Duloxetine HCl (Cymbalta Cap) 30 mg HS PO 07/16/17 21:00 08/15/17 20:59 07/18/17 20:31 30 MG Duloxetine HCl (Cymbalta Cap) 60 mg DAILY PO 07/17/17 09:00 08/16/17 08:59 07/19/17 08:07 60 MG Imipramine HCl (Tofranil Tab) 50 mg HS PO 07/16/17 21:00 08/15/17 20:59 07/18/17 20:34 50 MG Imipramine HCl (Tofranil Tab) 25 mg QAM PO 07/17/17 09:00 08/16/17 08:59 07/19/17 08:06 25 MG Levothyroxine Sodium (Synthroid Tab) 50 mcg DAILYBB PO 07/17/17 06:30 08/16/17 06:59 07/19/17 05:18 50 MCG Magnesium Oxide (Mag-Ox Tab) 400 mg BID PO 07/16/17 21:00 08/15/17 20:59 07/19/17 08:06 400 MG Metoprolol Succinate (Toprol Xl Tab) 37.5 mg HS PO 07/16/17 21:00 08/15/17 20:59 07/18/17 20:34 37.5 MG Multivitamins (Multivitamin Tab) 1 tab DAILY PO 07/17/17 09:00 08/16/17 08:59 07/19/17 08:07 1 TAB Pantoprazole Sodium (Protonix Tab) 40 mg DAILY PO 07/17/17 09:00 08/16/17 08:59 07/19/17 08:07 40 MG Pregabalin (Lyrica Cap) 150 mg BID PO 07/16/17 21:00 08/15/17 20:59 07/19/17 08:17 150 MG Rosuvastatin Calcium (Crestor Tab) 40 mg DAILY PO 07/17/17 09:00 08/16/17 08:59 07/19/17 08:07 40 MG Bupropion HCl (Wellbutrin-Sr Tab) 150 mg BID PO 07/16/17 21:00 08/15/17 20:59 07/19/17 08:07 150 MG Miscellaneous Information (Order Awaiting Action) 1 ea QS N/A 07/16/17 16:00 08/15/17 15:59 Sodium Chloride ([place] Nasal [place]) 1 sprays PRN PRN NA 07/16/17 16:45 08/15/17 16:44 Promethazine HCl 12.5 mg/Sodium Chloride 50.5 ml @ 204 mls/hr Q6H PRN IV 07/16/17 22:15 08/15/17 22:14 07/16/17 22:29 204 MLS/HR Albuterol/ Ipratropium (Combivent Respimat Inh) 1 puffs QID INH 07/18/17 13:00 08/17/17 12:59 07/19/17 12:49 1 PUFFS Miscellaneous Information (Consult Glycemic Management Pharmacy) 1 ea UD PRN N/A 07/18/17 09:45 08/17/17 09:44 Isosorbide Dinitrate (Isordil Tab) 5 mg TID@0700,1200,1700 PO 07/18/17 12:00 08/17/17 11:59 07/19/17 08:07 5 MG Insulin Glargine (Lantus Solostar Pen) 20 units BID SC 07/18/17 11:30 08/17/17 11:29 07/19/17 08:12 20 UNITS Aspirin (Ecotrin Tab) 81 mg DAILY PO 07/19/17 09:00 08/18/17 08:59 07/19/17 08:06 81 MG
--- NOTE | 2017-07-19 14:43 | Neurology Consultation ---
Neurology Consultation Date of Consultation: Jul 19, 2017. Attending Physician: Wilber Suarez MD Primary Care Physician: Chavez Cesar M.D. Reason for Consultation: tremors,shaking History of Present Illness Source: patient Cecil is a 72 year old male with a PMH of CAD s/p CABGx2, Hx. of Cardiac Arrest and V-Fib s/p AICD placement, insulin dependent DM2 with complications including peripheral vascular disease s/p R foot transmetatarsal amputation, CKD stage IV, JOSE on nocturnal O2, Hypothyroidism, Mood Disorder with depression. He presented to the hospital admission date 07/16/17 with shortness of breath. He was having shortness of breath and "throat pain" for the past three weeks. He has seen his primary care physician; and was given antibiotics at that time. He said he never fully recovered. He uses O2 nocturnally due to sleep apnea (did not tolerate CPAP mask); and he turned it up to 3L of O2 with no help. He also developed some chest/throat pain. He states he started having shaking episodes about 1 year ago and it is when he is trying to get up from lying or from sitting to standing. At one point he was on gabapentin but it was briefly and he doesn't really remember taking it or why it was stopped. denies swallowing difficulty, CP, SOB, abdominal pain, one sided weakness, numbness tingling, N, V, wet pillows in am, bowel or bladder issues Past Medical/Surgical History Medical Problems: (1) Hypertension Status: Acute (2) Hypoxia Status: Acute (3) SOB (shortness of breath) Status: Acute Social History Smoking Status: Never smoker Alcohol Use: socially Drug Use: none Marital Status: Housing Status: lives with significant other Allergies Coded Allergies: Moxifloxacin (Unverified Adverse Reaction, Severe, "DEPLETED POTASSIUM AND MAGNESIUM. CARDIAC ARREST" PT , 07/16/17) Current Inpatient Medications Current Inpatient Medications Medications (Trade) Dose Ordered Sig/Lashae Route Start Time Stop Time Status Last Admin Dose Admin Heparin Sodium (Porcine) (Heparin Sq 5000 Unit/0.5ml) 5,000 unit Q8 SQ 07/16/17 14:00 08/15/17 13:59 07/19/17 14:10 5,000 UNIT Insulin Aspart (novoLOG ASPART) SLIDING SCALE If C... ACHS SC 07/16/17 11:00 08/15/17 10:59 07/19/17 12:49 7 UNITS Glucose (Glucose 40% Gel) 15-30 GRAMS 15 GRAMS... UD PRN PO 07/16/17 10:45 08/15/17 10:44 Glucose (Glucose Chew Tab) 4-8 Tablets 4 Tabl... UD PRN PO 07/16/17 10:45 08/15/17 10:44 Dextrose (Dextrose 50% 50ML Syringe) 25-50ML OF 50% DW IV FOR... UD PRN IV 07/16/17 10:45 08/15/17 10:44 Glucagon (Glucagon Inj) 1 mg UD PRN SQ 07/16/17 10:45 08/15/17 10:44 Amlodipine Besylate (Norvasc Tab) 10 mg DAILY PO 07/17/17 09:00 08/16/17 08:59 07/19/17 08:06 10 MG Clopidogrel Bisulfate (plAVix TAB) 75 mg DAILY PO 07/17/17 09:00 08/16/17 08:59 07/19/17 08:07 75 MG Duloxetine HCl (Cymbalta Cap) 30 mg HS PO 07/16/17 21:00 08/15/17 20:59 07/18/17 20:31 30 MG Duloxetine HCl (Cymbalta Cap) 60 mg DAILY PO 07/17/17 09:00 08/16/17 08:59 07/19/17 08:07 60 MG Imipramine HCl (Tofranil Tab) 50 mg HS PO 07/16/17 21:00 08/15/17 20:59 07/18/17 20:34 50 MG Imipramine HCl (Tofranil Tab) 25 mg QAM PO 07/17/17 09:00 08/16/17 08:59 07/19/17 08:06 25 MG Levothyroxine Sodium (Synthroid Tab) 50 mcg DAILYBB PO 07/17/17 06:30 08/16/17 06:59 07/19/17 05:18 50 MCG Magnesium Oxide (Mag-Ox Tab) 400 mg BID PO 07/16/17 21:00 08/15/17 20:59 07/19/17 08:06 400 MG Metoprolol Succinate (Toprol Xl Tab) 37.5 mg HS PO 07/16/17 21:00 08/15/17 20:59 07/18/17 20:34 37.5 MG Multivitamins (Multivitamin Tab) 1 tab DAILY PO 07/17/17 09:00 08/16/17 08:59 07/19/17 08:07 1 TAB Pantoprazole Sodium (Protonix Tab) 40 mg DAILY PO 07/17/17 09:00 08/16/17 08:59 07/19/17 08:07 40 MG Pregabalin (Lyrica Cap) 150 mg BID PO 07/16/17 21:00 08/15/17 20:59 07/19/17 08:17 150 MG Rosuvastatin Calcium (Crestor Tab) 40 mg DAILY PO 07/17/17 09:00 08/16/17 08:59 07/19/17 08:07 40 MG Bupropion HCl (Wellbutrin-Sr Tab) 150 mg BID PO 07/16/17 21:00 08/15/17 20:59 07/19/17 08:07 150 MG Miscellaneous Information (Order Awaiting Action) 1 ea QS N/A 07/16/17 16:00 08/15/17 15:59 Sodium Chloride ([place] Nasal [place]) 1 sprays PRN PRN NA 07/16/17 16:45 08/15/17 16:44 Promethazine HCl 12.5 mg/Sodium Chloride 50.5 ml @ 204 mls/hr Q6H PRN IV 07/16/17 22:15 08/15/17 22:14 07/16/17 22:29 204 MLS/HR Albuterol/ Ipratropium (Combivent Respimat Inh) 1 puffs QID INH 07/18/17 13:00 08/17/17 12:59 07/19/17 12:49 1 PUFFS Miscellaneous Information (Consult Glycemic Management Pharmacy) 1 ea UD PRN N/A 07/18/17 09:45 08/17/17 09:44 Isosorbide Dinitrate (Isordil Tab) 5 mg TID@0700,1200,1700 PO 07/18/17 12:00 08/17/17 11:59 07/19/17 08:07 5 MG Insulin Glargine (Lantus Solostar Pen) 20 units BID SC 10/17/17 11:30 08/17/17 11:29 07/19/17 08:12 20 UNITS Aspirin (Ecotrin Tab) 81 mg DAILY PO 07/19/17 09:00 08/18/17 08:59 07/19/17 08:06 81 MG Physical Exam Vital Signs (Past 24 Hrs): Date Time Temp Pulse Resp B/P (MAP) Pulse Ox O2 Delivery O2 Flow Rate FiO2 07/19/17 11:20 36.7 62 18 142/70 (94) 94 07/19/17 07:34 36.8 61 20 138/76 (96) 96 07/19/17 07:30 96 Nasal Cannula 2.0 07/19/17 04:12 36.7 68 20 156/75 (102) 96 Nasal Cannula 2.0 07/19/17 04:00 Nasal Cannula 2.0 07/19/17 00:04 Nasal Cannula 2.0 07/18/17 23:29 36.5 70 20 149/84 (105) 96 Room Air 07/18/17 20:00 95 Nasal Cannula 2.0 07/18/17 19:44 36.8 78 20 150/79 (102) 94 Nasal Cannula 2.0 07/18/17 16:00 95 Nasal Cannula 2.0 07/18/17 15:28 36.9 70 18 168/75 (106) 95 Nasal Cannula 2.0 Physical Exam: Constitutional: appearance nourished, obese on 2 L O2 Ears, Nose, Mouth and Throat: mucous membranes moist, no injection and skin normal, eyes normal Cardiovascular: normal S-1 and S-2 and regular rate and rhythm Respiratory: course breath sounds Musculoskeletal right foot ambulation of all digits. left hand digit amputation Skin: no stigmata of neurocutaneous disease noted and normal and intact Eyes: extraocular muscles intact (EOMI) and pupils equal, round and reactive to light (PERRL) NEUROLOGIC EXAMINATION: Mental status: Alert and interactive Oriented to full date and location Oriented to person Speech fluent with no evidence of aphasia Cranial Nerves smile eye brow raise symmetric, tongue midline Reflexes: Deep tendon reflexes were symmetrical and graded 2/5. Sensory: absent sensation to pin prick bilaterally to knee. absent sensation to knee with vibration Coordination: finger to nose without bi pass, no resting tremor, jaw tremor + tremor with intension both arms and legs, Gait/Stance: Posture lying in bed with sitting up shaking of legs and arms Motor: Negative for pronator drift of out stretched arms with eyes closed. Strength: Normal - 5/5 all extremities Laboratory Results Past 24 Hours: 07/19/17 09:45 Test 07/19/17 09:45 07/19/17 11:26 Anion Gap 5.0 mmol/L (3-11) Est Creatinine Clear Calc Drug Dose 32.1 ml/min Estimated GFR () 26.3 Estimated GFR (Non- 22.7 BUN/Creatinine Ratio 12.0 (10-20) Calcium Level 8.4 mg/dl (8.5-10.1) Bedside Glucose 144 mg/dl (70-99) Imaging no new imaging Impression 72 year old male with shaking tremor with movement Plan 1. CK normal 2. statin started about 1 year ago when tremor started 3. unstable gate which is multi factorial. 4. no resting tremor or cog wheeling 5. out patient EMG may be helpful 6. PT/OT for balance issues and ambulatory issues 7. b12 folate ammonia 8. MRI combo to r/o cerebellar atrophy further recommendations to follow I have seen and discussed above patient with Dr Eduardo Dockery, neurology I have seen this man and reviewed his history and examination several years of tremor and what appears to be elements of myoclonus/asterixis and postural change indcrease in generalized tremor along with a significant and presumptively diabetic polyneuropathy and gait disturbance He is on an impressive combination of ssri, tricyclics, buproprion and pregabalin for unclear reasons and some of the movements may reflect a low grade serotonin excess but there may well b some essential tremor [id number]. This is not parkinsons. Recommend the labs as above including ammonia and imaging of brain to check for cerebellar atrophy and an eeg to check for cortical myoclonus You might want to have psychiatry assess the current mix of medications and assess whether these are needed for his depression and whether some of these might be tapered off Eduardo Dockery MD
[2017-07-19] MEDS: DULOXETINE (CYMBALTA) 30 MG CAP PO SCH (21:55)
[2017-07-19] MEDS: METOPROLOL SUCC 25MG EXT REL TAB PO SCH (21:56)
[2017-07-19] MEDS: IMIPRAMINE HCL 50 MG TAB PO SCH (21:56)
[2017-07-20] VITALS (11 sets, daily range): BP systolic 144–156; BP diastolic 73–85; PULSE 56–72; TEMP 36.5–36.7; O2SAT 92–98
[2017-07-20] MEDS: HEPARIN SOD 5000 UNIT/0.5 ML CARP SQ SCH ×3 (05:55→21:15)
[2017-07-20] MEDS: LEVOTHYROXINE 50 MCG TAB PO SCH (05:56)
[2017-07-20 06:31] LABS: BUN/CREATININE RATIO 13.3 (10-20); CALCIUM 8.2 mg/dl (8.5-10.1); CREATININE 2.36 mg/dl (0.60-1.40); POTASSIUM 3.8 mmol/L (3.5-5.1)
[2017-07-20] MEDS: INSULIN ASPART 100 UNITS/ML 3 ML PEN SC SCH ×4 (08:50→21:15)
[2017-07-20] MEDS: ISOSORBIDE DINITRATE 5 MG TAB PO SCH ×3 (08:51→16:39)
[2017-07-20] MEDS ORDERED: INSULIN GLARGINE SOLOSTAR 100 UNITS/ML 3 ML PEN SC SCH (09:00)
[2017-07-20] MEDS: BuPROPion SR 150 MG TABCR PO SCH ×2 (09:38→21:16)
[2017-07-20] MEDS: PANTOprazole SOD 40 MG TAB PO SCH (09:38)
[2017-07-20] MEDS: MULTIVITAMIN TAB PO SCH (09:38)
[2017-07-20] MEDS: DULOXETINE HCL 60 MG CAP PO SCH (09:38)
[2017-07-20] MEDS: ASPIRIN 81 MG ECTAB PO SCH (09:38)
[2017-07-20] MEDS: MAGNESIUM OXIDE 400 MG TAB PO SCH ×2 (09:39→21:15)
[2017-07-20] MEDS: IMIPRAMINE HCL 25 MG TAB PO SCH (09:39)
[2017-07-20] MEDS: ROSUVASTATIN CALCIUM 20 MG TAB PO SCH (09:39)
[2017-07-20] MEDS: CLOPIDOGREL BISULFATE 75 MG TAB PO SCH (09:39)
[2017-07-20] MEDS: IPRATROPIUM BROMIDE/ALBUTEROL respimat INH INH SCH ×4 (09:40→21:06)
[2017-07-20] MEDS: AMLODIPINE BESYLATE 5 MG TAB PO SCH (09:40)
[2017-07-20] MEDS: FENOFIBRATE 200 MG PO SCH (09:41)
--- NOTE | 2017-07-20 09:43 | Pharmacy Progress Note ---
Glycemic Control Progress Note Date of Service Jul 20, 2017. Scope Glycemic Pharmacist consulted for glycemic control to write orders per [facility] inpatient glycemic control protocol. Objective Accuchecks BSG (last 24hrs): Test 07/19/17 09:45 07/19/17 11:26 07/19/17 16:30 07/19/17 20:01 Random Glucose 144 mg/dl (70-99) Bedside Glucose 144 mg/dl (70-99) 81 mg/dl (70-99) 121 mg/dl (70-99) Test 07/20/17 05:23 07/20/17 07:47 Random Glucose 115 mg/dl (70-99) Bedside Glucose 139 mg/dl (70-99) HbA1c: Test 07/17/17 06:08 Hemoglobin A1c 7.0 % (4.5-5.6) H Recent Pertinent Medications Outpatient Anti-diabetic Regimen: * Lantus 52 units in the morning and evening plus Novolog 29 units AC and correction factor of 1 unit for every 50 mg/dL over 150 mg/dL The patient is currently receiving: * Basal insulin: Lantus 20 units every 12 hours * Correctional Insulin: Novolog Correction per scale ACHS Goal Range: Low 110 mg/dL - High 140 mg/dL Correction Factor: 20 mg/dL/unit * Prandial insulin: Per carb ratio of 1 unit per 8 grams CHO consumed Risk Factors for Insulin Resistance: * Diet: type 2 diabetic diet Outpatient Anti-Diabetic Meds see above Assessment & Plan ASSESSMENT: * ADA & AACE recommend a goal blood sugar range 140-180 mg/dl for the majority of critically ill & non-critically ill patients. However, more stringent targets may be selected in individual cases. Will utilize more stringent goal of 110-140 mg/dl based on patient age & comorbidities. Additionally, tighter glycemic control is warranted to facilitate infection healing. * Mr Boswell is a 72 y/o M with a complex cardiac PMH history including CABG x 2 and cardiac arrest with VFib and subsequent ACID placement who was admitted with SBO. He was initially placed on a reduced Lantus dose of 45 units twice daily (takes 52 units twice daily at home) - which produced a fasting blood sugar of 64 mg/dL. That day, the patient had received 97 units of insulin ... This was reduced by 20% and a total daily dose of 80 units was estimated. * Lantus 20 units twice daily was initially started. Today's fasting blood sugar was 139 mg/dL (115 mg/dL on the PRP). There is currently a downward trend in morning blood sugars and I suspect that this is no longer from the Lantus 45 units SQ BID. The patient's regimen is also very basal heavy. Will reduce dose to Lantus 18 units SQ x 1 this morning and then establish a sliding scale for the evening. * Post-prandial blood sugars are within range. Carbohydrate ratio loosened slightly as the patient has a downwards trend yesterday. Will monitor closely. PLAN FOR INPATIENT GLYCEMIC CONTROL: * Basal insulin with LANTUS 18 units SQ x 1 then LANTUS 15-18 units SQ BID ( Lantus 15 units if blood sugar less than 140 mg/dL and 18 units if blood sugar 140 mg/dL or greater) * Correctional Insulin with NOVOLOG per scale ACHS or Q6hrs while NPO * Goal Range: Low 110 mg/dL - High 140 mg/dL * Correction Factor: 20 mg/dL/unit * Nutritional / Prandial insulin per carb ratio of 1 unit per 8 grams CHO consumed OUTPATIENT RECOMMENDATIONS * Patient's HbA1C within goal for patient (goal for patient is 7.6-8.0% based upon Elements of Diabetes Care Scoring Scale) .... as long as patient has no hypoglycemia at home it is reasonable to continue current regimen. Thank you.
[2017-07-20] MEDS: DOXYCYCLINE HYCLATE 100 MG CAP PO SCH ×2 (10:18→21:16)
[2017-07-20] MEDS: PREGABALIN 150 MG CAP PO SCH ×2 (10:19→21:15)
[2017-07-20 10:42] LABS: ALLEN TEST POS (POS); ARTERIAL BLD GAS O2 SATURATION 95.9 % (90-95); ARTERIAL BLOOD GAS BASE EXCESS 2.7 mEq/L (-9-1.8); ARTERIAL BLOOD GAS HCO3 27 mmol/L (19-24); ARTERIAL BLOOD GAS PO2 86 mm/Hg (80-95); ARTERIAL BLOOD GAS pH 7.43 (7.35-7.45); O2 ADMINISTRATION 2 L
--- NOTE | 2017-07-20 11:15 | Progress Note ---
Medicine Progress Note Date & Time of Visit: Jul 20, 2017 at 10:56. Subjective RN Emmy reported that patient was lethargic this morning seen at the bedside, alert, oriented x 2, answers all questions appropriately states night was ok, this morning, was sitting up at the edge of the bed, having breakfast but fell backwards due to shaking denies chest pain, dyspnea, dizziness no other symptoms Objective Last 8 Hrs Date Time Temp Pulse Resp B/P (MAP) Pulse Ox O2 Delivery O2 Flow Rate FiO2 07/20/17 08:00 Nasal Cannula 2.0 07/20/17 07:55 36.5 56 18 150/79 (102) 97 Nasal Cannula 2.0 07/20/17 04:12 36.7 72 18 144/73 (96) 92 Nasal Cannula 2.0 07/20/17 04:00 Nasal Cannula 2.0 Physical Exam: General- oriented x 3, not in distress, speaks in sentences with no effort Eyes- anicteric Neck- no JVD Lungs- clear BS bilaterally, no rales/wheezes Heart- regular rhythm; no murmur, normal rate Abdomen- normal bowel sounds, soft, nontender Extremities- no pretibial edema, no calf tenderness; peripheral pulses intact Neuro- alert, oriented x 3;no gross focal deficits Skin- warm & dry Laboratory Results: Last 24 Hours Test 07/19/17 11:26 07/19/17 15:26 07/19/17 16:30 07/19/17 16:49 Bedside Glucose 144 mg/dl 81 mg/dl Vitamin B12 Level 377 pg/mL Folate 9.97 ng/mL Ammonia 42.0 umol/L Test 07/19/17 20:01 07/20/17 05:23 07/20/17 07:47 07/20/17 10:20 Bedside Glucose 121 mg/dl 139 mg/dl Sodium Level 140 mmol/L Potassium Level 3.8 mmol/L Chloride Level 107 mmol/L Carbon Dioxide Level 26 mmol/L Anion Gap 7.0 mmol/L Blood Urea Nitrogen 31 mg/dl Creatinine 2.36 mg/dl Est Creatinine Clear Calc Drug Dose 36.2 ml/min Estimated GFR () 30.7 Estimated GFR (Non- 26.5 BUN/Creatinine Ratio 13.3 Random Glucose 115 mg/dl Calcium Level 8.2 mg/dl Arterial Blood pH 7.43 Arterial Blood Partial Pressure CO2 42 mmHg Arterial Blood Partial Pressure O2 86 mm/Hg Arterial Blood HCO3 27 mmol/L Arterial Blood Oxygen Saturation 95.9 % Arterial Blood Base Excess 2.7 mEq/L Arterial Blood Gas Delivery 2 L Austin Test POS Assessment & Plan This is a 72 year old male with a PMH of CAD s/p CABGx2, Hx. of Cardiac Arrest and V-Fib s/p AICD placement, insulin dependent DM2 with complications including peripheral vascular disease s/p R foot transmetatarsal amputation, CKD stage IV, JOSE on nocturnal O2, Hypothyroidism, Mood Disorder with depression - presents with shortness of breath ACUTE ON LIKELY CHRONIC DIASTOLIC CHF, Resolved - echo noted clinically improved with Lasix one dose Isordil TID added will need Lasix PRN 2-3x a week, PRN for CHF symptoms, but need to closely watch crea remains euvolemic, monitor - possible component of Acute Bronchitis? on Doxycycline Day 12/06 - appreciate Cardio SVC input TREMORS/SHAKES - unclear etiology - r/o seizure EEG pending - r/o Cerebellar Atrophy cannot perform MRI as patient has pacemaker CT head w/o contrast ordered - from multiple psych meds? Psyh consulted - from JOSE/ non adherence of CPAP? encouraged CPAP use and patient agreed - from elevated Ammonia? check Liver US start lactulose will consult GI -appreciate Neuro recommendations anticipate d/c to Rehab DM 2 patient is on a high dose of insulin, takes 52 units twice daily of Lantus as well as a sliding scale of Novolog a1c 7.0 - (+) hypoglycemia the other day - Lantus decreased appreciate Pharm SVC recommendations HTN improving Isordil added continue monitoring CKD stage IV patient states that he was to have further kidney w/up - crea trending up, baseline 2.4 today 2.3 - will need to monitor crea - Nephrology consulted Hx. of CAD s/p CABGx2 Hx. of cardiac arrest and V-Fib s/p AICD cardiac markers negative echo noted on Plavix, Aspirin JOSE did not tolerate CPAP uses 2L O2 nocturnally check nocturnal pulse ox as SOB is worse at night -- needs at least O2 supplement at HS discussed in detail with patient today re: importance of CPAP use and consequences of not using it he agrees to try CPAP again will order CPAP as inpatient while sleeping Hypothyroidism continue current dose of Synthroid Mood Disorder and Depression Psych consulted for medication review DVT ppx subq heparin FULL CODE Disposition PT recommending Rehab anticipate d/c to Rehab when cleared by Neurology Current Inpatient Medications: Current Inpatient Medications Medications (Trade) Dose Ordered Sig/Lashae Route Start Time Stop Time Status Last Admin Dose Admin Heparin Sodium (Porcine) (Heparin Sq 5000 Unit/0.5ml) 5,000 unit Q8 SQ 07/16/17 14:00 08/15/17 13:59 07/20/17 05:55 5,000 UNIT Insulin Aspart (novoLOG ASPART) SLIDING SCALE If C... ACHS SC 07/16/17 11:00 08/15/17 10:59 07/20/17 08:50 5 UNITS Glucose (Glucose 40% Gel) 15-30 GRAMS 15 GRAMS... UD PRN PO 07/16/17 10:45 08/15/17 10:44 Glucose (Glucose Chew Tab) 4-8 Tablets 4 Tabl... UD PRN PO 07/16/17 10:45 08/15/17 10:44 Dextrose (Dextrose 50% 50ML Syringe) 25-50ML OF 50% DW IV FOR... UD PRN IV 07/16/17 10:45 08/15/17 10:44 Glucagon (Glucagon Inj) 1 mg UD PRN SQ 07/16/17 10:45 08/15/17 10:44 Amlodipine Besylate (Norvasc Tab) 10 mg DAILY PO 07/17/17 09:00 08/16/17 08:59 07/20/17 09:40 10 MG Clopidogrel Bisulfate (plAVix TAB) 75 mg DAILY PO 07/17/17 09:00 08/16/17 08:59 07/20/17 09:39 75 MG Duloxetine HCl (Cymbalta Cap) 30 mg HS PO 07/16/17 21:00 08/15/17 20:59 07/19/17 21:55 30 MG Duloxetine HCl (Cymbalta Cap) 60 mg DAILY PO 07/17/17 09:00 08/16/17 08:59 07/20/17 09:38 60 MG Imipramine HCl (Tofranil Tab) 50 mg HS PO 07/16/17 21:00 08/15/17 20:59 07/19/17 21:56 50 MG Imipramine HCl (Tofranil Tab) 25 mg QAM PO 07/17/17 09:00 08/16/17 08:59 07/20/17 09:39 25 MG Levothyroxine Sodium (Synthroid Tab) 50 mcg DAILYBB PO 07/17/17 06:30 08/16/17 06:59 07/20/17 05:56 50 MCG Magnesium Oxide (Mag-Ox Tab) 400 mg BID PO 07/16/17 21:00 08/15/17 20:59 07/20/17 09:39 400 MG Metoprolol Succinate (Toprol Xl Tab) 37.5 mg HS PO 07/16/17 21:00 08/15/17 20:59 07/19/17 21:56 37.5 MG Multivitamins (Multivitamin Tab) 1 tab DAILY PO 07/17/17 09:00 08/16/17 08:59 07/20/17 09:38 1 TAB Pantoprazole Sodium (Protonix Tab) 40 mg DAILY PO 07/17/17 09:00 08/16/17 08:59 07/20/17 09:38 40 MG Pregabalin (Lyrica Cap) 150 mg BID PO 07/16/17 21:00 08/15/17 20:59 07/20/17 10:19 150 MG Rosuvastatin Calcium (Crestor Tab) 40 mg DAILY PO 07/17/17 09:00 08/16/17 08:59 07/20/17 09:39 40 MG Bupropion HCl (Wellbutrin-Sr Tab) 150 mg BID PO 07/16/17 21:00 08/15/17 20:59 07/20/17 09:38 150 MG Sodium Chloride (Lantana Nasal [place]) 1 sprays PRN PRN NA 07/16/17 16:45 08/15/17 16:44 Promethazine HCl 12.5 mg/Sodium Chloride 50.5 ml @ 204 mls/hr Q6H PRN IV 07/16/17 22:15 08/15/17 22:14 07/16/17 22:29 204 MLS/HR Albuterol/ Ipratropium (Combivent Respimat Inh) 1 puffs QID INH 07/18/17 13:00 08/17/17 12:59 07/20/17 09:40 1 PUFFS Miscellaneous Information (Consult Glycemic Management Pharmacy) 1 ea UD PRN N/A 07/18/17 09:45 08/17/17 09:44 Isosorbide Dinitrate (Isordil Tab) 5 mg TID@0700,1200,1700 PO 07/18/17 12:00 08/17/17 11:59 07/20/17 08:51 5 MG Aspirin (Ecotrin Tab) 81 mg DAILY PO 07/19/17 09:00 08/18/17 08:59 07/20/17 09:38 81 MG Fenofibrate (Tricor) 200 mg QAM PO 07/20/17 09:00 08/19/17 08:59 07/20/17 09:41 200 MG Insulin Glargine (Lantus Solostar Pen) SEE PROTOCOL TEXT PLEASE BID SC 07/20/17 21:00 08/19/17 20:59 Doxycycline Hyclate (Vibramycin Cap) 100 mg BID PO 07/20/17 10:00 07/25/17 23:59 07/20/17 10:18 100 MG
--- NOTE | 2017-07-20 11:51 | DIAGNOSTIC IMAGING REPORT ---
CT HEAD WITHOUT CONTRAST (CT) CLINICAL HISTORY: tremors COMPARISON STUDY: No previous studies for comparison. TECHNIQUE: Axial CT of the brain is performed from the vertex to the skull base. IV contrast was not administered for this examination. A dose lowering technique was utilized adhering to the principles of ALARA. CT DOSE: 614.27 mGy.cm FINDINGS: No intra or extra-axial mass lesions are visualized. There is no CT evidence of acute cortical infarction. There is no evidence of midline shift. There is no acute hemorrhage. No calvarial fractures are visualized. There are patchy white matter hypodensities likely on a small vessel basis. There are bilateral basal ganglia lacunar infarcts. There is no evidence of pathologic ventricular dilatation. There is no evidence of acute sinusitis IMPRESSION: 1. No evidence of intracranial mass in this noncontrast study 2. Foci of decreased attenuation within the white matter likely a small vessel basis. Bilateral basal ganglia lacunar infarcts 3. No acute intracranial findings Electronically signed by: Fabian Durham M.D. 07/20/2017 11:49 AM Dictated Date/Time: 07/20/2017 11:48 AM
--- NOTE | 2017-07-20 14:26 | Psychiatric Consultation ---
Consultation Date of Consultation Jul 20, 2017. Identifying Data 72-year-old gentleman with multiple medical conditions including coronary artery disease status post CABG 2, AICD, insulin-dependent diabetes with peripheral vascular disease and right foot amputation, chronic kidney disease stage IV, obstructive sleep apnea on O2, hypothyroidism, who presented to the hospital with shortness of breath and a sense of pain in his throat for the 3 weeks prior to admission. We are consulted to evaluate possible medication side effects contributing to muscle shaking. Information is gathered from the electronic medical record, the patient and from India Soto PA-C. All are considered to be reliable Chief Complaint "I'm fine". History of Present Illness 72-year-old gentleman with the above-mentioned past medical history, who presented to the hospital with increasing shortness of breath and neck pain. During his stay he demonstrated some odd jerking motions especially when attempting to get up from a lying position and thus neurology was consulted. They cannot identify a specific cause for his jerkiness and I therefore wondering about the impact of his multiple psychiatric medications. He is currently prescribed Wellbutrin 150 mg twice a day, Cymbalta 60 mg a.m., 30 mg at bedtime, we're to 150 mg twice a day, Tofranil 25 mg twice a day. When I see the patient today he is lying in bed. He is wearing oxygen, watching TV. There is no evidence of tremors or abnormal muscle movements. He is alert and cooperative with the interview. 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 He denies that he has had any mood problems now or in the past in today's describes his mood as "all right". He denies being anxious. He says he has good sleep and "great " appetite. He denies ever having had hallucinations or any evidence of thought disorder or bipolar disorder. When asked to get up from a lying position, he uses his left arm to push himself up and during this motion his left arm jerks but does not give way. Once seated and moved to the edge of the bed this muscle jerking ceases. He is able to sit at the side of the bed with stability. There is no cogwheeling present in his upper extremities. Past Psychiatric History Current OP Treatment: no current treatment Prior OP Treatment: no prior treatment Prior Psych Hospitalizations: none Access to a Gun: Yes (locked) Suicide Attempts: No Past Medication Trials He doesn't know Past Medical/Surgical History (1) Diabetes (2) Stage 4 chronic kidney disease (3) Hypertension (4) SOB (shortness of breath) Allergies Allergies: Coded Allergies: Moxifloxacin (Unverified Adverse Reaction, Severe, "DEPLETED POTASSIUM AND MAGNESIUM. CARDIAC ARREST" PT , 07/16/17) Home Medications Scheduled Allopurinol (Zyloprim), 300 MG PO DAILY Amlodipine (Norvasc), 10 MG PO DAILY Aspirin (Aspirin Ec), 81 MG PO DAILY Bupropion Hcl (Smoking [place] (Bupropion Hcl Sr), 1 TAB PO BID Cholecalciferol (Vitamin D3), 2 TAB PO DAILY Clopidogrel (Plavix), 75 MG PO DAILY Duloxetine HCl (Cymbalta), 1 CAP PO HS Duloxetine Hcl (Cymbalta), 60 MG PO DAILY Fenofibrate (Tricor), 200 MG PO DAILY Imipramine Hcl (Tofranil), 25 MG PO QAM Imipramine Hcl (Tofranil), 2 TAB PO HS Insulin Aspart (Novolog), 29 UNITS SC AC Insulin Glargine (Lantus Solostar), 52 UNITS SC AMPM Levothyroxine Sodium (Levothyroxine Sodium), 1 TAB PO DAILYBB Magnesium Oxide (Mag-Ox), 400 MG PO BID Metoprolol Succ (Toprol Xl) (Toprol-Xl), 1.5 TAB PO HS Multivitamin (Multivitamin), 1 TAB PO DAILY Nitroglycerin (Nitrostat), 0.4 MG UT PRN [place]-3 Fatty Acids (Fish Oil 1200 mg), 2 CAP PO BID Pantoprazole (Protonix), 40 MG PO DAILY Pregabalin (Lyrica), 150 MG PO BID Rosuvastatin Calcium (Crestor), 40 MG PO DAILY Scheduled PRN Oxymetazoline Hcl (Afrin 0.05% Nasal [place]), 2 SPRAYS [place] BID PRN for Nasal Congestion Miscellaneous Medications Home O2 Therapy (Oxygen), 2 LITERS NA Family History History of Suicide: No History of Substance Abuse: Yes (father and 2 brothers suffered with alcoholism ) Psychiatric History: No Alcohol Use Alcohol Use In Past 12 Months: No Smoking Use She is 1 can of snuff every 2 days Personal History Lives in: [facility] with his Childhood: Raised by both parents Education: started high school (completed 10th grade) Work History: [employer] Relationship History: Children: 4 boys ranging in age from 31-51 Spiritual Affiliation: Roman Catholic Legal History: none Psychological Trauma History: Denies Hx Traumatic Event Review of Systems Constitutional: denies no symptoms reported, denies see HPI, denies chills, denies diaphoresis, denies fever, denies malaise, denies weakness, denies other Eyes: denies: no symptoms, as stated in HPI, eye pain, tearing, itching, redness, discharge, double vision, visual changes, blurred vision, photophobia, other ENT: denies: no symptoms reported, see HPI, ear pain, ear discharge, loss of hearing, tinnitus, nasal pain, nasal congestion, rhinorrhea, epistaxis, sore throat, stidor, throat swelling, mouth pain, mouth swelling, dental pain, gum swelling, other Cardiovascular: denies: no symptoms reported, see HPI, chest pain, chest tightness, chest pressure, diaphoresis, palpitations, syncope, other Respiratory: reports: short of breath Gastrointestinal: denies no symptoms reported, denies see HPI, denies abdominal pain, denies constipation, denies diarrhea, denies nausea, denies vomiting, denies other Genitourinary - Male: denies: no symptoms, see HPI, rash, amenorrhea, penile itching, penile discharge, testicular pain, testicular swelling, impotence, other Musculoskeletal: other (denies pain. Demonstrates jerking muscle movement of arms with intention) Integumentary: denies no symptoms reported, denies see HPI, denies change in color, denies change in hair/nails, denies dryness, denies lesions, denies lumps , denies rash, denies other Neurologic: reports: other (peripheral neuropathy) Endocrine: denies: no symptoms, as stated in HPI, cold intolerance, heat intolerance, hair changes, goiter, polydipsia, polyuria, skin changes, other Hematologic / Lymphatic: denies: no symptoms, as stated in HPI, abnormal clotting, adenopathy, anemia, easy bleeding, easy bruising, gums bleeding, petechiae, other Examination Physical Examination As per Ella AMARO Vital Signs Vital Signs Past 12 Hours Date Time Temp Pulse Resp B/P (MAP) Pulse Ox O2 Delivery O2 Flow Rate FiO2 07/20/17 13:40 96 Nasal Cannula 2.0 07/20/17 12:30 36.7 68 18 152/75 (100) 96 Nasal Cannula 2.0 07/20/17 11:28 95 Nasal Cannula 2.0 07/20/17 11:22 36.7 62 18 154/73 (100) 95 Room Air 07/20/17 08:00 Nasal Cannula 2.0 07/20/17 07:55 36.5 56 18 150/79 (102) 97 Nasal Cannula 2.0 07/20/17 04:12 36.7 72 18 144/73 (96) 92 Nasal Cannula 2.0 07/20/17 04:00 Nasal Cannula 2.0 Laboratory Results Last 24 Hours Test 07/19/17 15:26 07/19/17 16:30 07/19/17 16:49 07/19/17 20:01 Vitamin B12 Level 377 pg/mL Folate 9.97 ng/mL Bedside Glucose 81 mg/dl 121 mg/dl Ammonia 42.0 umol/L Test 07/20/17 05:23 07/20/17 07:47 07/20/17 10:20 07/20/17 12:10 Sodium Level 140 mmol/L Potassium Level 3.8 mmol/L Chloride Level 107 mmol/L Carbon Dioxide Level 26 mmol/L Anion Gap 7.0 mmol/L Blood Urea Nitrogen 31 mg/dl Creatinine 2.36 mg/dl Est Creatinine Clear Calc Drug Dose 36.2 ml/min Estimated GFR () 30.7 Estimated GFR (Non- 26.5 BUN/Creatinine Ratio 13.3 Random Glucose 115 mg/dl Calcium Level 8.2 mg/dl Bedside Glucose 139 mg/dl 125 mg/dl Arterial Blood pH 7.43 Arterial Blood Partial Pressure CO2 42 mmHg Arterial Blood Partial Pressure O2 86 mm/Hg Arterial Blood HCO3 27 mmol/L Arterial Blood Oxygen Saturation 95.9 % Arterial Blood Base Excess 2.7 mEq/L Arterial Blood Gas Delivery 2 L Austin Test POS Mental Examination During interview pt is: alert and oriented, cooperative Appearance: appropriately dressed Eye contact is: good Motor behavior is: other (jerking muscle movements of left arm with attempts to get up out of bed) Speech: normal in rate, rhythm & volume Affect: blunted Mood is: other ("all right") Thought process: goal directed Thought content: reality based without delusions Suicidal thought are: denied Homicidal thoughts are: denied Hallucinations: denies auditory, denies visual Cognition: attention grossly intact, language grossly intact, other (poor historian for medications) Intelligence estimated to be: below average Insight: fair Judgement: fair Impression / Recommendations Impression 72-year-old gentleman with multiple medical conditions previously described, admitted with shortness of breath and throat pain. We are consulted to assist with medication management. I have visited the patient with India AMARO from neurology to observe his jerking arm movements. They seem to be limited to intentional use of those arms, specifically when getting up out of bed. He otherwise has no resting or tremors of intention. There is no cogwheeling. [place] reports that his gait is within normal limits, state Station is within normal limits. There were concerns about serotonin syndrome but I would not see that this would be limited to a circumscribed situation. I certainly understand that he is on multiple medications that have both psychiatric use as well as pain abuse. He denies that he is depressed and does not know why he was started on these medicines and so in an effort to reduce the polypharmacy, I will suggest that we reduce some of his medications to see if it has impacted these jerking movements. He is on Wellbutrin 150 mg twice a day and getting a dose at bedtime I'm going to cut that in half to 150 mg a.m. only. He is on a divided dose of Cymbalta and I will reduce that to 60 mg in the morning only. He is on Tofranil 25 mg twice a day. This can make him somewhat tired during the day and in an effort to rule out muscle fatigue as part of this picture, we will reduce the Tofranil to 25 mg at bedtime only. Certainly the norepinephrine anergic medicines can contribute to tremor although he does not demonstrate as I said a resting or intentional tremor. He is in agreement with this. Our liaison nurse will attempt to contact his hope after her work today as she will probably have a better understanding of why all of the medicines were started. [place] is in agreement with this plan of action as is the patient. Risk Factors Assessment Male: Yes : Yes /single/: No Higher / Fall in social status: No Access to guns: Yes Health problems: Yes Mental Health Diagnoses: No Substance use disorders: No Previous attempt: No Hopelessness: No Protective Factors Assessment [employer] beliefs: Yes : Yes Responsible for young children: No Employed: No Stable relationships: Yes Supportive family: Yes Recommendations (1) Tremor due to multiple drugs 07/20 - Reduce Wellbutrin to 150 mg. AM - Reduce Cymbalta to 60 mg. AM - Reduce Tofranil to 25 mg. HS only - If pain or neuropathic symptoms emerge, will re-evaluate - Will follow Has been reviewed with Dr. Madison Sorenson
--- NOTE | 2017-07-20 14:29 | Neurology Progress Notes ---
Neurology Progress Note Date of Service Jul 20, 2017. Alverto Jacob is a 72 year old male with a PMH of CAD s/p CABGx2, Hx. of Cardiac Arrest and V-Fib s/p AICD placement, insulin dependent DM2 with complications including peripheral vascular disease s/p R foot transmetatarsal amputation, CKD stage IV, JOSE on nocturnal O2, Hypothyroidism, Mood Disorder with depression. He presented to the hospital admission date 07/16/17 with shortness of breath. He was having shortness of breath and "throat pain" for the past three weeks. He has seen his primary care physician; and was given antibiotics at that time. He said he never fully recovered. He uses O2 nocturnally due to sleep apnea (did not tolerate CPAP mask); and he turned it up to 3L of O2 with no help. He also developed some chest/throat pain. He states he started having shaking episodes about 1 year ago and it is when he is trying to get up from lying or from sitting to standing. At one point he was on gabapentin but it was briefly and he doesn't really remember taking it or why it was stopped. Today he is being seen by Kathy ABRAHAM from psychiatry. She is reviewing his medications and is going to have then reviewed by his as to when they were started along with what he is taking them for because he is uncertain. denies swallowing difficulty, CP, SOB, abdominal pain, one sided weakness, numbness tingling, N, V, wet pillows in am, bowel or bladder issues Objective Date Time Temp Pulse Resp B/P (MAP) Pulse Ox O2 Delivery O2 Flow Rate FiO2 07/20/17 13:40 96 Nasal Cannula 2.0 07/20/17 12:30 36.7 68 18 152/75 (100) 96 Nasal Cannula 2.0 07/20/17 11:28 95 Nasal Cannula 2.0 07/20/17 11:22 36.7 62 18 154/73 (100) 95 Room Air 07/20/17 08:00 Nasal Cannula 2.0 07/20/17 07:55 36.5 56 18 150/79 (102) 97 Nasal Cannula 2.0 07/20/17 04:12 36.7 72 18 144/73 (96) 92 Nasal Cannula 2.0 07/20/17 04:00 Nasal Cannula 2.0 07/20/17 00:00 Nasal Cannula 2.0 07/19/17 23:47 36.6 74 18 147/63 (91) 95 Nasal Cannula 2.0 07/19/17 20:00 95 Nasal Cannula 2.0 07/19/17 19:42 36.8 72 20 110/58 (75) 94 Nasal Cannula 2.0 07/19/17 16:00 95 Nasal Cannula 2.0 07/19/17 15:01 37.0 66 19 164/88 (113) 93 2.0 Last 24 Hours Test 07/19/17 15:26 07/19/17 16:30 07/19/17 16:49 07/19/17 20:01 Vitamin B12 Level 377 pg/mL Folate 9.97 ng/mL Bedside Glucose 81 mg/dl 121 mg/dl Ammonia 42.0 umol/L Test 07/20/17 05:23 07/20/17 07:47 07/20/17 10:20 07/20/17 12:10 Sodium Level 140 mmol/L Potassium Level 3.8 mmol/L Chloride Level 107 mmol/L Carbon Dioxide Level 26 mmol/L Anion Gap 7.0 mmol/L Blood Urea Nitrogen 31 mg/dl Creatinine 2.36 mg/dl Est Creatinine Clear Calc Drug Dose 36.2 ml/min Estimated GFR () 30.7 Estimated GFR (Non- 26.5 BUN/Creatinine Ratio 13.3 Random Glucose 115 mg/dl Calcium Level 8.2 mg/dl Bedside Glucose 139 mg/dl 125 mg/dl Arterial Blood pH 7.43 Arterial Blood Partial Pressure CO2 42 mmHg Arterial Blood Partial Pressure O2 86 mm/Hg Arterial Blood HCO3 27 mmol/L Arterial Blood Oxygen Saturation 95.9 % Arterial Blood Base Excess 2.7 mEq/L Arterial Blood Gas Delivery 2 L [place] Test POS Imaging: CT head - No evidence of intracranial mass in this noncontrast study Foci of decreased attenuation within the white matter likely a small vessel basis. Bilateral basal ganglia lacunar infarcts No acute intracranial findings Exam: Physical Exam: Constitutional: appearance nourished, healthy and obese Ears, Nose, Mouth and Throat: mucous membranes moist, no injection and skin normal, eyes normal Cardiovascular: normal S-1 and S-2 and regular rate and rhythm Respiratory: course breath sounds Musculoskeletal: no peripheral edema and good distal pulses Skin: no stigmata of neurocutaneous disease noted and normal and intact Eyes: extraocular muscles intact (EOMI) and pupils equal, round and reactive to light (PERRL) NEUROLOGIC EXAMINATION: Mental status: Alert and interactive Oriented to full date and location Oriented to person Speech fluent with no evidence of aphasia Cranial Nerves facial symmetry Reflexes: Deep tendon reflexes were symmetrical and graded 2/5. Plantar responses were flexor. Coordination: finger to nose with out bi pass, mild reaching tremor Gait/Stance: Posture normal. sitting and lying in bed with change of position he has jerking movements in all ext. 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 ACHS SC 07/16/17 11:00 08/15/17 10:59 07/20/17 13:02 4 UNITS Glucose (Glucose 40% Gel) 15-30 GRAMS 15 GRAMS... UD PRN PO 07/16/17 10:45 08/15/17 10:44 Glucose (Glucose Chew Tab) 4-8 Tablets 4 Tabl... UD PRN PO 07/16/17 10:45 08/15/17 10:44 Dextrose (Dextrose 50% 50ML Syringe) 25-50ML OF 50% DW IV FOR... UD PRN IV 07/16/17 10:45 08/15/17 10:44 Glucagon (Glucagon Inj) 1 mg UD PRN SQ 07/16/17 10:45 08/15/17 10:44 Amlodipine Besylate (Norvasc Tab) 10 mg DAILY PO 07/17/17 09:00 08/16/17 08:59 07/20/17 09:40 10 MG Clopidogrel Bisulfate (plAVix TAB) 75 mg DAILY PO 07/17/17 09:00 08/16/17 08:59 07/20/17 09:39 75 MG Duloxetine HCl (Cymbalta Cap) 30 mg HS PO 07/16/17 21:00 08/15/17 20:59 07/19/17 21:55 30 MG Duloxetine HCl (Cymbalta Cap) 60 mg DAILY PO 07/17/17 09:00 08/16/17 08:59 07/20/17 09:38 60 MG Imipramine HCl (Tofranil Tab) 50 mg HS PO 07/16/17 21:00 08/15/17 20:59 07/19/17 21:56 50 MG Imipramine HCl (Tofranil Tab) 25 mg QAM PO 07/17/17 09:00 08/16/17 08:59 07/20/17 09:39 25 MG Levothyroxine Sodium (Synthroid Tab) 50 mcg DAILYBB PO 07/17/17 06:30 08/16/17 06:59 07/20/17 05:56 50 MCG Magnesium Oxide (Mag-Ox Tab) 400 mg BID PO 07/16/17 21:00 08/15/17 20:59 07/20/17 09:39 400 MG Metoprolol Succinate (Toprol Xl Tab) 37.5 mg HS PO 07/16/17 21:00 08/15/17 20:59 07/19/17 21:56 37.5 MG Multivitamins (Multivitamin Tab) 1 tab DAILY PO 07/17/17 09:00 08/16/17 08:59 07/20/17 09:38 1 TAB Pantoprazole Sodium (Protonix Tab) 40 mg DAILY PO 07/17/17 09:00 08/16/17 08:59 07/20/17 09:38 40 MG Pregabalin (Lyrica Cap) 150 mg BID PO 07/16/17 21:00 08/15/17 20:59 07/20/17 10:19 150 MG Rosuvastatin Calcium (Crestor Tab) 40 mg DAILY PO 07/17/17 09:00 08/16/17 08:59 07/20/17 09:39 40 MG Bupropion HCl (Wellbutrin-Sr Tab) 150 mg BID PO 07/16/17 21:00 08/15/17 20:59 07/20/17 09:38 150 MG Sodium Chloride ([place] Nasal [place]) 1 sprays PRN PRN NA 07/16/17 16:45 08/15/17 16:44 Promethazine HCl 12.5 mg/Sodium Chloride 50.5 ml @ 204 mls/hr Q6H PRN IV 07/16/17 22:15 08/15/17 22:14 07/16/17 22:29 204 MLS/HR Albuterol/ Ipratropium (Combivent Respimat Inh) 1 puffs QID INH 07/18/17 13:00 08/17/17 12:59 07/20/17 12:57 1 PUFFS Miscellaneous Information (Consult Glycemic Management Pharmacy) 1 ea UD PRN N/A 07/18/17 09:45 08/17/17 09:44 Isosorbide Dinitrate (Isordil Tab) 5 mg TID@0700,1200,1700 PO 07/18/17 12:00 08/17/17 11:59 07/20/17 12:57 5 MG Aspirin (Ecotrin Tab) 81 mg DAILY PO 07/19/17 09:00 08/18/17 08:59 07/20/17 09:38 81 MG Fenofibrate (Tricor) 200 mg QAM PO 07/20/17 09:00 08/19/17 08:59 07/20/17 09:41 200 MG Insulin Glargine (Lantus Solostar Pen) SEE PROTOCOL TEXT PLEASE BID SC 07/20/17 21:00 08/19/17 20:59 Doxycycline Hyclate (Vibramycin Cap) 100 mg BID PO 07/20/17 10:00 07/25/17 23:59 07/20/17 10:18 100 MG Lactulose (Chronulac Syrup) 15 gm TID PO 07/20/17 14:00 08/19/17 13:59 Impression 72 year old male with shaking tremor with movement Plan 1. CK normal 2. statin started about 1 year ago when tremor started 3. unstable gate which is multi factorial. 4. no resting tremor or cog wheeling 5. out patient EMG may be helpful 6. PT/OT for balance issues and ambulatory issues 7. b12 folate ammonia ammonia slightly elevated, b12, folate WNL 8. MRI combo to r/o cerebellar atrophy- MRI cancelled 9. CT head -Bilateral basal ganglia lacunar infarcts - would be helpful to have MRI with and with contrast further recommendations to follow I have seen and discussed above patient with Dr Eduardo Dockery, neurology Patient seen and evaluated above discussed wit India Guzman eeg normal exam shows some minor tremor ans asterixis/myoclonus today but less so than yesterday mri cancelled due to pacer but ct is adequate to assess cerebellum and no gross atrophy is seen ammonia a bit up and psych is on board and may taper off the meds a bit and the may have to be contacted about why many of these meds were started years ago some may be for neuropathy At this point I am reluctant to add anything until we have more data and frankly this man will be returning to [place] for his medical care and follow up but if pushed ai would consider rx with mysoline in low doses but only after a trial of reducing his combination of ssri , tca lyrica and welbutrin is completed Eduardo Dockery MD
--- NOTE | 2017-07-20 14:30 | Gastrointestinal Consultation ---
Gastrointestinal Consultation Date of Consultation: Jul 20, 2017 Attending Physician: Dr. Suarez Consulting Physician: Dr. Osborne Reason for Consultation: Elevated Ammonia History of Present Illness Patient is a 72 year old male patient of Dr. Cesar with a hx of CAD, CABG, with AICD, DM-2, Sleep apnea, hypothyroidism, CKD IV presented to the ED on for SOB which has since greatly improved. GI is consulted this morning for elevated ammonia. Apparently, the patient was witnessed to have some tremulous or seizure type activity this morning, then ammonia was drawn showing ammonia 42 (normal to 32). He is seen and examined while he is resting in bed. He is awake, alert, oriented , able to provide a detailed history. He denies any hx of liver disease/ cirrhosis, jaundice, confusion. Although he has undergone endoscopy previously through [facility], he has never been seen in the [facility] Gastroenterology clinic. A review of labs shows normal LFTs, normal INR, normal platelets. Past Medical/Surgical History Medical Problems: (1) Hypertension Status: Acute (2) Hypoxia Status: Acute (3) SOB (shortness of breath) Status: Acute Past Medical History: 1. CAD s/p CABGx2 2. Cardiac Arrest 3. V-Fib s/p AICD placement 4. Insulin dependent DM2 5. PVD 6. CKD stage IV 7. JOSE on nocturnal O2 8. Hypothyroidism 9. Mood Disorder with depression. Past Surgical History: 1. CABD 2. AICD placement Social History Drug Use: none Marital Status: Housing Status: lives with significant other Allergies Coded Allergies: Moxifloxacin (Unverified Adverse Reaction, Severe, "DEPLETED POTASSIUM AND MAGNESIUM. CARDIAC ARREST" PT , 07/16/17) Current Medications Home Meds and Scripts Medications Dose Route/Sig Max Daily Dose Days Date Category Dose Instructions Nitrostat (Nitroglycerin) 0.4 Mg Tab 0.4 Mg UT PRN 07/16/17 Reported Fish Oil 1200 mg ([place]-3 Fatty Acids) 1 Cap Cap 2 Cap PO BID 07/16/17 Reported Multivitamin (Multivitamins) Tab 1 Tab PO DAILY 07/16/17 Reported Afrin 0.05% Nasal [place] (Oxymetazoline Hcl) 1 Btl [place] 2 Sprays [place] BID PRN 07/16/17 Reported Mag-Ox (Magnesium Oxide) 400 Mg Tab 400 Mg PO BID 07/16/17 Reported Oxygen Gas 2 Liters NA 07/16/17 Reported Vitamin D3 (Cholecalciferol) 1,000 Unit Tab 2 Tab PO DAILY 07/16/17 Reported Aspirin Ec (Aspirin) 81 Mg Tab 81 Mg PO DAILY 07/16/17 Reported Plavix (Clopidogrel Bisulfate) 75 Mg Tab 75 Mg PO DAILY 07/16/17 Reported Toprol-Xl (Metoprolol Succinate) 25 Mg Tabcr 1.5 Tab PO HS 07/16/17 Reported Novolog (Insulin Aspart) 100 Units/Ml Inj 29 Units SC AC 07/16/17 Reported PLUS ADDITIONAL 2 UNITS FOR EACH 50 ABOVE 150 Zyloprim (Allopurinol) 300 Mg Tab 300 Mg PO DAILY 07/16/17 Reported Tofranil (Imipramine Hcl) 25 Mg Tab 2 Tab PO HS 07/16/17 Reported Tofranil (Imipramine Hcl) 25 Mg Tab 25 Mg PO QAM 07/16/17 Reported Lantus Solostar (Insulin Glargine) 100 Unit/Ml Inj 52 Units SC AMPM 07/16/17 Reported Levothyroxine Sodium 50 Mcg Tab 1 Tab PO DAILYBB 07/16/17 Reported Crestor (Rosuvastatin Calcium) 40 Mg Tab 40 Mg PO DAILY 07/16/17 Reported Bupropion Hcl Sr (Bupropion Hcl ([place]) 150 Mg Tab 1 Tab PO BID 07/16/17 Reported Tricor (Fenofibrate) 200 Mg Cap 200 Mg PO DAILY 07/16/17 Reported Norvasc (Amlodipine Besylate) 10 Mg Tab 10 Mg PO DAILY 07/16/17 Reported Lyrica (Pregabalin) 150 Mg Cap 150 Mg PO BID 07/16/17 Reported Protonix (Pantoprazole Sodium) 40 Mg Tab 40 Mg PO DAILY 07/16/17 Reported Cymbalta (Duloxetine HCl) 30 Mg Cap 1 Cap PO HS 07/16/17 Reported Cymbalta (Duloxetine Hcl) 60 Mg Cap 60 Mg PO DAILY 07/16/17 Reported Review of Systems Constitutional: No fever, No chills, No sweats, No weight loss, No weakness Eyes: No eye pain, No redness ENT: No sore throat, No trouble swallowing, No pain on swallowing Respiratory: + shortness of breath, No cough, No wheezing, No dyspnea on exertion Cardiac: No chest pain, No edema, No palpitations Abdomen: + see HPI Neuro: + problem reported (tremor), No memory loss, No weakness, No numbness/ tingling, No vertigo, No balance problems Psych: No depression symptoms, No anxiety, No insomnia Heme: No abnormal bleeding/bruising, No night sweats Endo: No excessive thirst, No excessive urination Skin: No rash, No itch, No new/changing skin lesions, No jaundice Physical Exam Date Time Temp Pulse Resp B/P (MAP) Pulse Ox O2 Delivery O2 Flow Rate FiO2 07/20/17 13:40 96 Nasal Cannula 2.0 07/20/17 12:30 36.7 68 18 152/75 (100) 96 Nasal Cannula 2.0 07/20/17 11:28 95 Nasal Cannula 2.0 07/20/17 11:22 36.7 62 18 154/73 (100) 95 Room Air 07/20/17 08:00 Nasal Cannula 2.0 07/20/17 07:55 36.5 56 18 150/79 (102) 97 Nasal Cannula 2.0 07/20/17 04:12 36.7 72 18 144/73 (96) 92 Nasal Cannula 2.0 07/20/17 04:00 Nasal Cannula 2.0 07/20/17 00:00 Nasal Cannula 2.0 07/19/17 23:47 36.6 74 18 147/63 (91) 95 Nasal Cannula 2.0 07/19/17 20:00 95 Nasal Cannula 2.0 07/19/17 19:42 36.8 72 20 110/58 (75) 94 Nasal Cannula 2.0 07/19/17 16:00 95 Nasal Cannula 2.0 07/19/17 15:01 37.0 66 19 164/88 (113) 93 2.0 General Appearance: no apparent distress Eyes: normal inspection, EOMI Neck: supple, no adenopathy, thyroid normal Respiratory/Chest: chest non-tender, lungs clear, normal breath sounds, no accessory muscle use Cardiovascular: regular rate, rhythm, no JVD, no murmur Abdomen: normal bowel sounds, non tender, soft, no organomegaly Extremities: normal inspection, no pedal edema, normal capillary refill Neurologic/Psych: alert, normal mood/affect, oriented x 3, + pertinent finding (mild tremor or the hands, no flap/asterixes) Skin: normal color, no jaundice, warm/dry, no rash Laboratory Results Last 24 Hours Test 07/19/17 15:26 07/19/17 16:30 07/19/17 16:49 07/19/17 20:01 Vitamin B12 Level 377 pg/mL Folate 9.97 ng/mL Bedside Glucose 81 mg/dl 121 mg/dl Ammonia 42.0 umol/L Test 07/20/17 05:23 07/20/17 07:47 07/20/17 10:20 07/20/17 12:10 Sodium Level 140 mmol/L Potassium Level 3.8 mmol/L Chloride Level 107 mmol/L Carbon Dioxide Level 26 mmol/L Anion Gap 7.0 mmol/L Blood Urea Nitrogen 31 mg/dl Creatinine 2.36 mg/dl Est Creatinine Clear Calc Drug Dose 36.2 ml/min Estimated GFR () 30.7 Estimated GFR (Non- 26.5 BUN/Creatinine Ratio 13.3 Random Glucose 115 mg/dl Calcium Level 8.2 mg/dl Bedside Glucose 139 mg/dl 125 mg/dl Arterial Blood pH 7.43 Arterial Blood Partial Pressure CO2 42 mmHg Arterial Blood Partial Pressure O2 86 mm/Hg Arterial Blood HCO3 27 mmol/L Arterial Blood Oxygen Saturation 95.9 % Arterial Blood Base Excess 2.7 mEq/L Arterial Blood Gas Delivery 2 L [place] Test POS Impression Patient is a 72 year old male with a mildly elevated ammonia. Doubt this represents hepatic encephalopathy because no hx of cirrhosis and no suggestion of cirrhosis as platelet levels are normal. He is also mentally clear w/o any evidence of confusion, slow mentation and is not lethargic or somnolent. His tremor or seizure like activity this morning is more likely related to a neurological issue than liver. Plan 1. RUQ ultrasound to r/o nodular contour to the liver. 2. Recommend against checking ammonia levels and not accurate unless an arterial draw and run stat. Also only of clinical significance if the pt has cirrhosis. 3. GI will watch peripherally. I have seen , examined and agree with the plan as outlined by LEIGH Carter as above. -exam reveals soft abd -No asterixis, low suspicion for Liver disease -arrange gi f/u
--- NOTE | 2017-07-20 14:46 | DIAGNOSTIC IMAGING REPORT ---
ABDOMINAL ULTRASOUND, RIGHT UPPER QUADRANT HISTORY: elevated ammonia, r/o liver cirrhosis. COMPARISON: None. FINDINGS: Pancreas: The pancreatic tail is obscured by overlying bowel gas. The remaining portions of the pancreas are within normal limits. Liver: The liver is echogenic consistent with fatty change. 21 cm in length. Gallbladder: The gallbladder is surgically absent. CBD: 5 mm. Right kidney: No hydronephrosis. IMPRESSION: 1. Cholecystectomy. 2. Hepatomegaly demonstrating fatty change. Electronically signed by: Javier Lowery M.D. 07/20/2017 2:45 PM Dictated Date/Time: 07/20/2017 2:44 PM
[2017-07-20] MEDS: LACTULOSE SYRUP 10 GM/15 ML BTL 473 ML PO SCH ×2 (15:07→21:07)
[2017-07-20] MEDS ORDERED: BUPR-267 PO (16:56)
--- NOTE | 2017-07-20 17:44 | ELECTROENCEPHALOGRAPH REPORT ---
CLINICAL DIAGNOSIS: Myoclonus/asterixis and tremor, question cortically originating discharges. ELECTROENCEPHALOGRAM DIAGNOSIS: Essentially normal during wakefulness. DESCRIPTION OF TRACING: This EEG was done as a bedside recording. No activation procedures were utilized. Video analysis of patient movement and behavior was obtained. Under these conditions, there is evidence for a background rhythm in the alpha range of up to 9-10 Hz of maximum frequency and 30 microvolts of maximum amplitude. This is maximum in posterior head regions and bilaterally symmetrical. Polymorphic mid frequency theta activity intermixed with occasional waveforms in the delta range is seen over all head regions without clear focal or regional predominance. Anterior head region maximum bilaterally symmetrical low voltage fast activity in the beta range is present. Video recording does capture a lot of head movements and tremulousness, but none of this is reflected on the EEG and there is certainly no evidence for potentially epileptogenic activity, triphasic waves or other evidence for cortical irritability that might correlate with the presence of the abnormal involuntary movements. INTERPRETATION: This study is essentially normal during wakefulness without evidence for focal or generalized encephalopathy, potentially epileptogenic activity or indeed any cortically originating activity that might correlate with the abnormal involuntary movements.
[2017-07-20] MEDS: DULOXETINE (CYMBALTA) 30 MG CAP PO SCH (21:08)
[2017-07-20] MEDS: INSULIN GLARGINE SOLOSTAR 100 UNITS/ML 3 ML PEN SC SCH (21:14)
[2017-07-20] MEDS: IMIPRAMINE HCL 50 MG TAB PO SCH (21:16)
[2017-07-20] MEDS: METOPROLOL SUCC 25MG EXT REL TAB PO SCH (21:16)
[2017-07-21] VITALS (11 sets, daily range): BP systolic 119–177; BP diastolic 67–89; PULSE 61–86; TEMP 36.5–36.8; O2SAT 90–96
[2017-07-21] MEDS: HEPARIN SOD 5000 UNIT/0.5 ML CARP SQ SCH ×3 (05:46→20:33)
[2017-07-21] MEDS: LEVOTHYROXINE 50 MCG TAB PO SCH (05:48)
[2017-07-21 06:16] LABS: BUN/CREATININE RATIO 12.2 (10-20); CALCIUM 8.5 mg/dl (8.5-10.1); CREATININE 2.41 mg/dl (0.60-1.40); POTASSIUM 3.7 mmol/L (3.5-5.1)
[2017-07-21] MEDS: IPRATROPIUM BROMIDE/ALBUTEROL respimat INH INH SCH ×4 (07:44→20:32)
[2017-07-21] MEDS: ISOSORBIDE DINITRATE 5 MG TAB PO SCH (07:44)
[2017-07-21] MEDS: ROSUVASTATIN CALCIUM 20 MG TAB PO SCH (07:45)
[2017-07-21] MEDS: ASPIRIN 81 MG ECTAB PO SCH (07:45)
[2017-07-21] MEDS: BuPROPion SR 150 MG TABCR PO SCH ×2 (07:45→20:30)
[2017-07-21] MEDS: LACTULOSE SYRUP 10 GM/15 ML BTL 473 ML PO SCH (07:45)
[2017-07-21] MEDS: MULTIVITAMIN TAB PO SCH (07:46)
[2017-07-21] MEDS: PANTOprazole SOD 40 MG TAB PO SCH (07:47)
[2017-07-21] MEDS: DULOXETINE HCL 60 MG CAP PO SCH (07:47)
[2017-07-21] MEDS: MAGNESIUM OXIDE 400 MG TAB PO SCH ×2 (07:47→20:30)
[2017-07-21] MEDS: AMLODIPINE BESYLATE 5 MG TAB PO SCH (07:48)
[2017-07-21] MEDS: FENOFIBRATE 200 MG PO SCH (07:48)
[2017-07-21] MEDS: IMIPRAMINE HCL 25 MG TAB PO SCH ×2 (07:48→20:30)
[2017-07-21] MEDS: DOXYCYCLINE HYCLATE 100 MG CAP PO SCH ×2 (07:49→20:30)
[2017-07-21] MEDS: CLOPIDOGREL BISULFATE 75 MG TAB PO SCH (07:49)
[2017-07-21] MEDS: PREGABALIN 150 MG CAP PO SCH ×2 (07:52→20:30)
[2017-07-21] MEDS: INSULIN ASPART 100 UNITS/ML 3 ML PEN SC SCH ×4 (07:56→20:16)
[2017-07-21] MEDS: INSULIN GLARGINE SOLOSTAR 100 UNITS/ML 3 ML PEN SC SCH ×2 (07:57→20:33)
--- NOTE | 2017-07-21 09:22 | Pharmacy Progress Note ---
Glycemic Control Progress Note Date of Service Jul 21, 2017. Scope Glycemic Pharmacist consulted for glycemic control to write orders per [facility] inpatient glycemic control protocol. Objective Accuchecks BSG (last 24hrs): Test 07/20/17 12:10 07/20/17 16:08 07/20/17 20:04 07/21/17 05:01 Bedside Glucose 125 mg/dl (70-99) 114 mg/dl (70-99) 119 mg/dl (70-99) Random Glucose 141 mg/dl (70-99) Test 07/21/17 07:27 Bedside Glucose 143 mg/dl (70-99) HbA1c: Test 07/17/17 06:08 Hemoglobin A1c 7.0 % (4.5-5.6) H Recent Pertinent Medications The patient is currently receiving: * Basal insulin: Lantus 15-18 units every 12 hours * Correctional Insulin: Novolog Correction per scale ACHS Goal Range: Low 110 mg/dL - High 140 mg/dL Correction Factor: 20 mg/dL/unit * Prandial insulin: Per carb ratio of 1 unit per 8 grams CHO consumed Outpatient Anti-Diabetic Meds Outpatient Anti-diabetic Regimen: * Lantus 52 units in the morning and evening plus Novolog 29 units AC and correction factor of 1 unit for every 50 mg/dL over 150 mg/dL Assessment & Plan ASSESSMENT: * See progress note from 07/20/17 for more background info, in short: * Pt receiving SQ basal bolus insulin regimen for hyperglycemia secondary to baseline DM (outpatient regimen on hold) and stress/infection. Patient is requiring significantly less insulin compared to outpatient dosing. * Patient is currently receiving an average of 45 units of insulin per day * 33 units of basal insulin * 12 units of prandial/correctional insulin * BSGs ranging 114 - 139 mg/dl over the past 24hrs * Changes needed to insulin regimen: * AM Fasting BSG = 143 mg/dl. This is in slightly above goal range for patient based on inpatient targets and co-morbidities. Increase Lantus. * Post-prandial BSGs are in range therefore no changes needed to CF/CR at this time. * Total daily dose = ~50 units. May need to evenly re-distribute regimen 50%: 50% basal:prandial to prevent hypo/hyperglycemia. PLAN FOR INPATIENT GLYCEMIC CONTROL: * Basal insulin - increase * Lantus 18 units SQ BID * Bolus insulin * NovoLog per scale ACHS or Q6hrs while NPO * Goal Range: Low 110 mg/dL - High 140 mg/dL * Correction Factor: 20 mg/dL/unit * Nutritional / Prandial insulin per carb ratio of 1 unit per 8 grams CHO consumed RECOMMENDATIONS FOR DISCHARGE: * Patient's HbA1C within goal for patient (goal for patient is 7.6-8.0% based upon Elements of Diabetes Care Scoring Scale) .... as long as patient has no hypoglycemia at home it is reasonable to continue current regimen. Thank you.
--- NOTE | 2017-07-21 10:55 | Psychiatric Progress Notes ---
Psychiatric Progress Note Date of Service Jul 21, 2017. Notes ID: Patient reviewed with liaison nurse. Case reviewed with LEIGH Anguiano who completed initial consult on 07/20. Multiple med changes i.e. decreases to limit polypharmacy. CC: muscle jerking HPI: 72 y/o male seen for follow-up visit on recent psychiatric medication reductions. Denies issues overnight. Reports myoclonus in upper extremities as unchanged, but it also does not bother him at baseline. Rates mood as "good ". ROS: Psych: denies symptoms other than stated above Constitutional: denied Cardiovascular: denied GI: denied Neurologic: as above Remainder of 10 body systems also reviewed and denied other than noted above. MSE: The patient presented as alert and cooperative. The patient was dressed in gown wearing oxygen. Eye contact was fair. No psychomotor restlessness or agitation was noted. Speech was normal in rate, rhythm, and volume. Affect was mood congruent. The patients mood appeared euthymic. Thought processes were clear, coherent and goal directed without evidence of loose associations or flight of ideas. Thought content/perception was reality based without delusions. The patient denied suicidal and homicidal ideation. The patient denied hallucinations and did not appear to be responding to internal stimuli. Imp: as per initial consult Plan: monitor on lower doses of psych meds. Ideally tofranil would be tapered off as outpatient by current prescriber.
--- NOTE | 2017-07-21 12:02 | Progress Note ---
Medicine Progress Note Date & Time of Visit: Jul 21, 2017 at 12:01. Subjective seen sitting up in bed, having lunch states he feels fine today was able to tolerate Bipap overnight denies shortness of breath, chest pain, headache ambulated to the bathroom today with no shakes/tremors denies other symptoms Objective Last 8 Hrs Date Time Temp Pulse Resp B/P (MAP) Pulse Ox O2 Delivery O2 Flow Rate FiO2 07/21/17 11:17 36.5 61 22 169/79 (109) 95 Nasal Cannula 2.0 07/21/17 08:00 96 Nasal Cannula 2.0 BiPAP 07/21/17 07:13 36.7 69 22 177/89 (118) 92 BiPAP 07/21/17 04:41 36.6 72 18 157/83 (107) 90 BiPAP 2.0 Physical Exam: General- oriented x 3, not in distress, speaks in sentences with no effort Eyes- anicteric Neck- no JVD Lungs- (+) mild rales bilateral bases Heart- regular rhythm; no murmur, normal rate Abdomen- normal bowel sounds, soft, nontender Extremities- no pretibial edema, no calf tenderness; peripheral pulses intact Neuro- alert, oriented x 3;no gross focal deficits Skin- warm & dry Laboratory Results: Last 24 Hours Test 07/20/17 12:10 07/20/17 16:08 07/20/17 20:04 07/21/17 05:01 Bedside Glucose 125 mg/dl 114 mg/dl 119 mg/dl Sodium Level 141 mmol/L Potassium Level 3.7 mmol/L Chloride Level 106 mmol/L Carbon Dioxide Level 29 mmol/L Anion Gap 6.0 mmol/L Blood Urea Nitrogen 29 mg/dl Creatinine 2.41 mg/dl Est Creatinine Clear Calc Drug Dose 35.5 ml/min Estimated GFR () 30.0 Estimated GFR (Non- 25.8 BUN/Creatinine Ratio 12.2 Random Glucose 141 mg/dl Calcium Level 8.5 mg/dl Test 07/21/17 07:27 07/21/17 11:20 Bedside Glucose 143 mg/dl 146 mg/dl Assessment & Plan This is a 72 year old male with a PMH of CAD s/p CABGx2, Hx. of Cardiac Arrest and V-Fib s/p AICD placement, insulin dependent DM2 with complications including peripheral vascular disease s/p R foot transmetatarsal amputation, CKD stage IV, JOSE on nocturnal O2, Hypothyroidism, Mood Disorder with depression - presents with shortness of breath ACUTE ON LIKELY CHRONIC DIASTOLIC CHF, Resolved - echo noted clinically improved with Lasix one dose Isordil TID added will need Lasix PRN 2-3x a week, PRN for CHF symptoms, but need to closely watch crea (+) rales today, lasix 20mg po given - possible component of Acute Bronchitis? on Doxycycline Day 01/06 - appreciate Cardio SVC input TREMORS/SHAKES - multifactorial - r/o seizure EEG Negative - r/o Cerebellar Atrophy cannot perform MRI as patient has pacemaker CT head w/o contrast(+) old infarcts - from multiple psych meds? Psyh consulted, medication doses decreased - from JOSE/ non adherence of CPAP? encouraged CPAP use and patient agreed - from elevated Ammonia? check Liver US: fatty liver GI consulted, likely noncontributory d/c lactulose -appreciate Neuro recommendations anticipate d/c to Rehab DM 2 patient is on a high dose of insulin, takes 52 units twice daily of Lantus as well as a sliding scale of Novolog a1c 7.0 - (+) hypoglycemia the other day - Lantus decreased appreciate Pharm SVC recommendations HTN elevated Isordil added, increased to 10mg BID continue monitoring CKD stage IV patient states that he was to have further kidney w/up - crea trending up, baseline 2.4 today 2.4 - will need to monitor crea - Nephrology consulted Hx. of CAD s/p CABGx2 Hx. of cardiac arrest and V-Fib s/p AICD cardiac markers negative echo noted on Plavix, Aspirin JOSE did not tolerate CPAP uses 2L O2 nocturnally check nocturnal pulse ox as SOB is worse at night -- needs at least O2 supplement at HS discussed in detail with patient today re: importance of CPAP use and consequences of not using it he agrees to try CPAP again CPAP as inpatient while sleeping Hypothyroidism continue current dose of Synthroid Mood Disorder and Depression Psych consulted for medication review DVT ppx subq heparin FULL CODE Disposition PT recommending Rehab anticipate d/c to Rehab when cleared by Neurology Current Inpatient Medications: Current Inpatient Medications Medications (Trade) Dose Ordered Sig/Lashae Route Start Time Stop Time Status Last Admin Dose Admin Heparin Sodium (Porcine) (Heparin Sq 5000 Unit/0.5ml) 5,000 unit Q8 SQ 07/16/17 14:00 08/15/17 13:59 07/21/17 05:46 5,000 UNIT Insulin Aspart (novoLOG ASPART) SLIDING SCALE If C... ACHS SC 07/16/17 11:00 08/15/17 10:59 07/21/17 07:56 7 UNITS Glucose (Glucose 40% Gel) 15-30 GRAMS 15 GRAMS... UD PRN PO 07/16/17 10:45 08/15/17 10:44 Glucose (Glucose Chew Tab) 4-8 Tablets 4 Tabl... UD PRN PO 07/16/17 10:45 08/15/17 10:44 Dextrose (Dextrose 50% 50ML Syringe) 25-50ML OF 50% DW IV FOR... UD PRN IV 07/16/17 10:45 08/15/17 10:44 Glucagon (Glucagon Inj) 1 mg UD PRN SQ 07/16/17 10:45 08/15/17 10:44 Amlodipine Besylate (Norvasc Tab) 10 mg DAILY PO 07/17/17 09:00 08/16/17 08:59 07/21/17 07:48 10 MG Clopidogrel Bisulfate (plAVix TAB) 75 mg DAILY PO 07/17/17 09:00 08/16/17 08:59 07/21/17 07:49 75 MG Duloxetine HCl (Cymbalta Cap) 30 mg HS PO 07/16/17 21:00 08/15/17 20:59 07/20/17 21:08 30 MG Duloxetine HCl (Cymbalta Cap) 60 mg DAILY PO 07/17/17 09:00 08/16/17 08:59 07/21/17 07:47 60 MG Imipramine HCl (Tofranil Tab) 50 mg HS PO 07/16/17 21:00 08/15/17 20:59 07/20/17 21:16 50 MG Imipramine HCl (Tofranil Tab) 25 mg QAM PO 07/17/17 09:00 08/16/17 08:59 07/21/17 07:48 25 MG Levothyroxine Sodium (Synthroid Tab) 50 mcg DAILYBB PO 07/17/17 06:30 08/16/17 06:59 07/21/17 05:48 50 MCG Magnesium Oxide (Mag-Ox Tab) 400 mg BID PO 07/16/17 21:00 08/15/17 20:59 07/21/17 07:47 400 MG Metoprolol Succinate (Toprol Xl Tab) 37.5 mg HS PO 07/16/17 21:00 08/15/17 20:59 07/20/17 21:16 37.5 MG Multivitamins (Multivitamin Tab) 1 tab DAILY PO 07/17/17 09:00 08/16/17 08:59 07/21/17 07:46 1 TAB Pantoprazole Sodium (Protonix Tab) 40 mg DAILY PO 07/17/17 09:00 08/16/17 08:59 07/21/17 07:47 40 MG Pregabalin (Lyrica Cap) 150 mg BID PO 07/16/17 21:00 08/15/17 20:59 07/21/17 07:52 150 MG Rosuvastatin Calcium (Crestor Tab) 40 mg DAILY PO 07/17/17 09:00 08/16/17 08:59 07/21/17 07:45 40 MG Bupropion HCl (Wellbutrin-Sr Tab) 150 mg BID PO 07/16/17 21:00 08/15/17 20:59 07/21/17 07:45 150 MG Sodium Chloride ([place] Nasal [place]) 1 sprays PRN PRN NA 07/16/17 16:45 08/15/17 16:44 Promethazine HCl 12.5 mg/Sodium Chloride 50.5 ml @ 204 mls/hr Q6H PRN IV 07/16/17 22:15 08/15/17 22:14 07/16/17 22:29 204 MLS/HR Albuterol/ Ipratropium (Combivent Respimat Inh) 1 puffs QID INH 07/18/17 13:00 08/17/17 12:59 07/21/17 07:44 1 PUFFS Miscellaneous Information (Consult Glycemic Management Pharmacy) 1 ea UD PRN N/A 07/18/17 09:45 08/17/17 09:44 Aspirin (Ecotrin Tab) 81 mg DAILY PO 07/19/17 09:00 08/18/17 08:59 07/21/17 07:45 81 MG Fenofibrate (Tricor) 200 mg QAM PO 07/20/17 09:00 08/19/17 08:59 07/21/17 07:48 200 MG Insulin Glargine (Lantus Solostar Pen) SEE PROTOCOL TEXT PLEASE BID SC 07/20/17 21:00 08/19/17 20:59 07/21/17 07:57 18 UNITS Doxycycline Hyclate (Vibramycin Cap) 100 mg BID PO 07/20/17 10:00 07/25/17 23:59 07/21/17 07:49 100 MG Isosorbide Dinitrate (Isordil Tab) 10 mg BID PO 07/21/17 21:00 08/17/17 11:59 UNV Isosorbide Dinitrate (Isordil Tab) 20 mg NOW ONCE PO 07/21/17 11:45 07/21/17 11:46 UNV
[2017-07-21] MEDS ORDERED: FUROSEMIDE 20 MG TAB PO ONE (12:15)
[2017-07-21] MEDS ORDERED: ISOSORBIDE DINITRATE 20 MG TAB PO ONE (12:15)
--- NOTE | 2017-07-21 14:12 | Neurology Progress Notes ---
Neurology Progress Note Date of Service Jul 21, 2017. Alverto Jacob is a 72 year old male with a PMH of CAD s/p CABGx2, Hx. of Cardiac Arrest and V-Fib s/p AICD placement, insulin dependent DM2 with complications including peripheral vascular disease s/p R foot transmetatarsal amputation, CKD stage IV, JOSE on nocturnal O2, Hypothyroidism, Mood Disorder with depression. He presented to the hospital admission date 07/16/17 with shortness of breath. He was having shortness of breath and "throat pain" for the past three weeks. He has seen his primary care physician; and was given antibiotics at that time. He said he never fully recovered. He uses O2 nocturnally due to sleep apnea (did not tolerate CPAP mask); and he turned it up to 3L of O2 with no help. He also developed some chest/throat pain. He states he started having shaking episodes about 1 year ago and it is when he is trying to get up from lying or from sitting to standing. At one point he was on gabapentin but it was briefly and he doesn't really remember taking it or why it was stopped. His has a concern that the tremor is progressively getting worse and she feels he is on too many medications. denies CP, SOB, abdominal pain, weakness, N, V, falls, Objective Date Time Temp Pulse Resp B/P (MAP) Pulse Ox O2 Delivery O2 Flow Rate FiO2 07/21/17 11:17 36.5 61 22 169/79 (109) 95 Nasal Cannula 2.0 07/21/17 08:00 96 Nasal Cannula 2.0 BiPAP 07/21/17 07:13 36.7 69 22 177/89 (118) 92 BiPAP 07/21/17 04:41 36.6 72 18 157/83 (107) 90 BiPAP 2.0 07/21/17 04:00 Nasal Cannula 2.0 07/21/17 03:27 73 93 2.0 30 07/21/17 02:22 78 95 30 07/21/17 00:00 Nasal Cannula 2.0 07/20/17 22:59 36.6 68 18 147/85 (105) 93 BiPAP 07/20/17 22:08 61 98 30 07/20/17 20:00 BiPAP 07/20/17 19:10 36.7 62 20 151/75 (100) 96 07/20/17 16:40 36.7 71 18 156/84 (108) 94 Nasal Cannula 2.0 07/20/17 16:00 BiPAP 40 07/20/17 15:42 62 98 40 Last 24 Hours Test 07/20/17 16:08 07/20/17 20:04 07/21/17 05:01 07/21/17 07:27 Bedside Glucose 114 mg/dl 119 mg/dl 143 mg/dl Sodium Level 141 mmol/L Potassium Level 3.7 mmol/L Chloride Level 106 mmol/L Carbon Dioxide Level 29 mmol/L Anion Gap 6.0 mmol/L Blood Urea Nitrogen 29 mg/dl Creatinine 2.41 mg/dl Est Creatinine Clear Calc Drug Dose 35.5 ml/min Estimated GFR () 30.0 Estimated GFR (Non- 25.8 BUN/Creatinine Ratio 12.2 Random Glucose 141 mg/dl Calcium Level 8.5 mg/dl Test 07/21/17 11:20 Bedside Glucose 146 mg/dl Imaging: CT head- No evidence of intracranial mass in this noncontrast study Foci of decreased attenuation within the white matter likely a small vessel basis. Bilateral basal ganglia lacunar infarcts No acute intracranial findings EEG- INTERPRETATION: This study is essentially normal during wakefulness without evidence for focal or generalized encephalopathy, potentially epileptogenic activity or indeed any cortically originating activity that might correlate with the abnormal involuntary movements. Exam: Physical Exam: Constitutional: appearance nourished, healthy and obese Ears, Nose, Mouth and Throat: mucous membranes moist, no injection and skin normal, eyes normal Cardiovascular: normal S-1 and S-2 and regular rate and rhythm Respiratory:course breath sounds Musculoskeletal: right digit amputation on LE Skin: no stigmata of neurocutaneous disease noted and normal and intact Eyes: extraocular muscles intact (EOMI) and pupils equal, round and reactive to light (PERRL) NEUROLOGIC EXAMINATION: Mental status: Alert and interactive Oriented to full date and location Oriented to person Speech fluent with no evidence of aphasia Cranial Nerves facial symmetry Coordination: Romberg absent Gait/Stance: Posture normal. Gait normal: with steady with steps, base, tandem gait, using walker minimal assist, full body jerking with initiation of movements but stops with maintaining position Motor: Negative for pronator drift of out stretched arms with eyes closed. Strength: biceps triceps hand search optimization analyst 5/5, hip flex 5/5 Current Inpatient Medications Medications (Trade) Dose Ordered Sig/Lashae Route Start Time Stop Time Status Last Admin Dose Admin Heparin Sodium (Porcine) (Heparin Sq 5000 Unit/0.5ml) 5,000 unit Q8 SQ 07/16/17 14:00 08/15/17 13:59 07/21/17 05:46 5,000 UNIT Insulin Aspart (novoLOG ASPART) SLIDING SCALE If C... ACHS SC 07/16/17 11:00 08/15/17 10:59 07/21/17 12:27 5 UNITS Glucose (Glucose 40% Gel) 15-30 GRAMS 15 GRAMS... UD PRN PO 07/16/17 10:45 08/15/17 10:44 Glucose (Glucose Chew Tab) 4-8 Tablets 4 Tabl... UD PRN PO 07/16/17 10:45 08/15/17 10:44 Dextrose (Dextrose 50% 50ML Syringe) 25-50ML OF 50% DW IV FOR... UD PRN IV 07/16/17 10:45 08/15/17 10:44 Glucagon (Glucagon Inj) 1 mg UD PRN SQ 07/16/17 10:45 08/15/17 10:44 Amlodipine Besylate (Norvasc Tab) 10 mg DAILY PO 07/17/17 09:00 08/16/17 08:59 07/21/17 07:48 10 MG Clopidogrel Bisulfate (plAVix TAB) 75 mg DAILY PO 07/17/17 09:00 08/16/17 08:59 07/21/17 07:49 75 MG Duloxetine HCl (Cymbalta Cap) 30 mg HS PO 07/16/17 21:00 08/15/17 20:59 07/20/17 21:08 30 MG Duloxetine HCl (Cymbalta Cap) 60 mg DAILY PO 07/17/17 09:00 08/16/17 08:59 07/21/17 07:47 60 MG Imipramine HCl (Tofranil Tab) 50 mg HS PO 07/16/17 21:00 08/15/17 20:59 07/20/17 21:16 50 MG Imipramine HCl (Tofranil Tab) 25 mg QAM PO 07/17/17 09:00 08/16/17 08:59 07/21/17 07:48 25 MG Levothyroxine Sodium (Synthroid Tab) 50 mcg DAILYBB PO 07/17/17 06:30 08/16/17 06:59 07/21/17 05:48 50 MCG Magnesium Oxide (Mag-Ox Tab) 400 mg BID PO 07/16/17 21:00 08/15/17 20:59 07/21/17 07:47 400 MG Metoprolol Succinate (Toprol Xl Tab) 37.5 mg HS PO 07/16/17 21:00 08/15/17 20:59 07/20/17 21:16 37.5 MG Multivitamins (Multivitamin Tab) 1 tab DAILY PO 07/17/17 09:00 08/16/17 08:59 07/21/17 07:46 1 TAB Pantoprazole Sodium (Protonix Tab) 40 mg DAILY PO 07/17/17 09:00 08/16/17 08:59 07/21/17 07:47 40 MG Pregabalin (Lyrica Cap) 150 mg BID PO 07/16/17 21:00 08/15/17 20:59 07/21/17 07:52 150 MG Rosuvastatin Calcium (Crestor Tab) 40 mg DAILY PO 07/17/17 09:00 08/16/17 08:59 07/21/17 07:45 40 MG Bupropion HCl (Wellbutrin-Sr Tab) 150 mg BID PO 07/16/17 21:00 08/15/17 20:59 07/21/17 07:45 150 MG Sodium Chloride ([place] Nasal [place]) 1 sprays PRN PRN NA 07/16/17 16:45 08/15/17 16:44 Promethazine HCl 12.5 mg/Sodium Chloride 50.5 ml @ 204 mls/hr Q6H PRN IV 07/16/17 22:15 08/15/17 22:14 07/16/17 22:29 204 MLS/HR Albuterol/ Ipratropium (Combivent Respimat Inh) 1 puffs QID INH 07/18/17 13:00 08/17/17 12:59 07/21/17 12:27 1 PUFFS Miscellaneous Information (Consult Glycemic Management Pharmacy) 1 ea UD PRN N/A 07/18/17 09:45 08/17/17 09:44 Aspirin (Ecotrin Tab) 81 mg DAILY PO 07/19/17 09:00 08/18/17 08:59 07/21/17 07:45 81 MG Fenofibrate (Tricor) 200 mg QAM PO 07/20/17 09:00 08/19/17 08:59 07/21/17 07:48 200 MG Doxycycline Hyclate (Vibramycin Cap) 100 mg BID PO 07/20/17 10:00 07/25/17 23:59 07/21/17 07:49 100 MG Isosorbide Dinitrate (Isordil Tab) 10 mg BID@0700,1200 PO 07/21/17 16:00 08/20/17 15:59 Insulin Glargine (Lantus Solostar Pen) 18 units BID SC 07/21/17 21:00 08/20/17 20:59 Impression 72 year old male with shaking tremor with movement Plan 1. CK normal 2. tremor started 1 year ago according to and she is concerned too many medications started 3. unstable gate which is multi factorial. 4. no resting tremor or cog wheeling 5. out patient EMG may be helpful 6. PT/OT for balance issues and ambulatory issues 7. b12 folate ammonia ammonia slightly elevated, b12, folate WNL 8. MRI combo to r/o cerebellar atrophy- MRI cancelled- cardiac pacer 9. CT head -Bilateral basal ganglia lacunar infarcts - would be helpful to have MRI with and with contrast 10. At last neurology visit he was to taper off the Lyrica 50 per week until off. that may be contributing to shaking tremor -psychiatry has started this process and has made recommendations. has been consulted and is in agreement with plan. base line essential tremor due to acute illness may have increased tremor. Will further evaluate medication changes in clinic follow up 11. EEG no seizure activity 12. will see back in neurology clinic in 3-[address] India Low or India Soto PAC I have seen and discussed above patient with Dr Eduardo Dockery, neurology Above reviewed case discussed with who proves to be a much more accurate historian and [facility] records reviewed which confirm the prior diagnoses of peripheral neuropathy and tremor but the severity of the latter has clearly worsened perhaps in relation to the stress of the acute illness but possibly due to medications which were to have been stopped but were not ( lyrica ) I will check tomorrow but India Guzman and India Low MD will ahve to see her post discharge Eduardo Dockery MD
[2017-07-21] MEDS ORDERED: ISOSORBIDE DINITRATE 5 MG TAB PO SCH ×2 (16:00→21:00)
[2017-07-21] MEDS ORDERED: NURSING VERBAL MED ORDER ONE (17:00)
[2017-07-21] MEDS: DULOXETINE (CYMBALTA) 30 MG CAP PO SCH (20:30)
[2017-07-21] MEDS: IMIPRAMINE HCL 50 MG TAB PO SCH (20:31)
[2017-07-21] MEDS: METOPROLOL SUCC 25MG EXT REL TAB PO SCH (20:31)
[2017-07-22] VITALS (7 sets, daily range): BP systolic 124–185; BP diastolic 67–97; PULSE 60–74; TEMP 36.3–36.8; O2SAT 93–96
[2017-07-22] MEDS: LEVOTHYROXINE 50 MCG TAB PO SCH (05:50)
[2017-07-22] MEDS: HEPARIN SOD 5000 UNIT/0.5 ML CARP SQ SCH ×3 (05:56→20:53)
[2017-07-22] MEDS: IPRATROPIUM BROMIDE/ALBUTEROL respimat INH INH SCH ×4 (07:52→20:50)
[2017-07-22] MEDS: DOXYCYCLINE HYCLATE 100 MG CAP PO SCH ×2 (07:53→20:49)
[2017-07-22] MEDS: CLOPIDOGREL BISULFATE 75 MG TAB PO SCH (07:53)
[2017-07-22] MEDS: PREGABALIN 150 MG CAP PO SCH (07:53)
[2017-07-22] MEDS: BuPROPion SR 150 MG TABCR PO SCH ×3 (07:53→20:50)
[2017-07-22] MEDS: ASPIRIN 81 MG ECTAB PO SCH (07:53)
[2017-07-22] MEDS: ISOSORBIDE DINITRATE 5 MG TAB PO SCH ×2 (07:54→20:50)
[2017-07-22] MEDS: ROSUVASTATIN CALCIUM 20 MG TAB PO SCH (07:54)
[2017-07-22] MEDS: PANTOprazole SOD 40 MG TAB PO SCH (07:55)
[2017-07-22] MEDS: MAGNESIUM OXIDE 400 MG TAB PO SCH ×2 (07:55→20:48)
[2017-07-22] MEDS: AMLODIPINE BESYLATE 5 MG TAB PO SCH (07:55)
[2017-07-22] MEDS: DULOXETINE HCL 60 MG CAP PO SCH (07:55)
[2017-07-22] MEDS: FENOFIBRATE 200 MG PO SCH (07:56)
[2017-07-22] MEDS: MULTIVITAMIN TAB PO SCH (07:56)
[2017-07-22 08:03] LABS: BUN/CREATININE RATIO 11.8 (10-20); CALCIUM 8.5 mg/dl (8.5-10.1); CREATININE 2.81 mg/dl (0.60-1.40); POTASSIUM 3.9 mmol/L (3.5-5.1)
[2017-07-22] MEDS: INSULIN GLARGINE SOLOSTAR 100 UNITS/ML 3 ML PEN SC SCH ×2 (08:28→20:52)
[2017-07-22] MEDS: INSULIN ASPART 100 UNITS/ML 3 ML PEN SC SCH ×4 (08:28→20:26)
--- NOTE | 2017-07-22 12:26 | Progress Note ---
Medicine Progress Note Date & Time of Visit: Jul 22, 2017 at 12:26. Subjective patient seen sitting in chair alert, oriented, comfortable states shaking continues to improve denies chest pain, dyspnea no other symptoms Objective Last 8 Hrs Date Time Temp Pulse Resp B/P (MAP) Pulse Ox O2 Delivery O2 Flow Rate FiO2 07/22/17 11:04 36.5 60 20 131/73 (92) 96 Nasal Cannula 2.0 07/22/17 08:00 Nasal Cannula 2.0 BiPAP 07/22/17 07:08 36.8 68 20 185/97 (126) 96 Nasal Cannula 2.0 Physical Exam: General- oriented x 3, not in distress, speaks in sentences with no effort Neck- no JVD Lungs- clear breath sounds bilaterally, no rales/wheezes Heart- regular rhythm; no murmur, normal rate Abdomen- normal bowel sounds, soft, nontender Extremities- no pretibial edema, no calf tenderness; peripheral pulses intact Neuro- alert, oriented x 3;no gross focal deficits Skin- warm & dry Laboratory Results: Last 24 Hours Test 07/21/17 16:12 07/21/17 19:59 07/22/17 07:11 07/22/17 07:14 Bedside Glucose 105 mg/dl 139 mg/dl 117 mg/dl Sodium Level 140 mmol/L Potassium Level 3.9 mmol/L Chloride Level 104 mmol/L Carbon Dioxide Level 29 mmol/L Anion Gap 6.0 mmol/L Blood Urea Nitrogen 33 mg/dl Creatinine 2.81 mg/dl Est Creatinine Clear Calc Drug Dose 30.5 ml/min Estimated GFR () 24.9 Estimated GFR (Non- 21.5 BUN/Creatinine Ratio 11.8 Random Glucose 123 mg/dl Calcium Level 8.5 mg/dl Test 07/22/17 11:24 Bedside Glucose 126 mg/dl Assessment & Plan This is a 72 year old male with a PMH of CAD s/p CABGx2, Hx. of Cardiac Arrest and V-Fib s/p AICD placement, insulin dependent DM2 with complications including peripheral vascular disease s/p R foot transmetatarsal amputation, CKD stage IV, JOSE on nocturnal O2, Hypothyroidism, Mood Disorder with depression - presents with shortness of breath ACUTE ON LIKELY CHRONIC DIASTOLIC CHF, Resolved - echo noted clinically improved with Lasix one dose Isordil TID added will need Lasix PRN 2-3x a week, PRN for CHF symptoms, but need to closely watch crea 07/21/17: given lasix 20mg po given - possible component of Acute Bronchitis? on Doxycycline Day 02/05 - appreciate Cardio SVC input TREMORS/SHAKES - multifactorial - from multiple psych meds? Psych consulted, medication doses decreased - from JOSE/ non adherence of CPAP? encouraged CPAP use and patient agreed - r/o seizure EEG Negative - r/o Cerebellar Atrophy cannot perform MRI as patient has pacemaker CT head w/o contrast(+) old infarcts - from elevated Ammonia? Liver US: fatty liver GI consulted, likely noncontributory d/c lactulose - improving -appreciate Neuro recommendations anticipate d/c to Rehab DM 2 patient is on a high dose of insulin, takes 52 units twice daily of Lantus as well as a sliding scale of Novolog a1c 7.0 - (+) hypoglycemia the other day - Lantus decreased appreciate Pharm SVC recommendations HTN elevated Isordil added, increased to 10mg BID - BP improving CKD stage IV patient states that he was to have further kidney w/up - crea trending up, baseline 2.4 today 2.8 - will need to monitor crea - Nephrology consulted Hx. of CAD s/p CABGx2 Hx. of cardiac arrest and V-Fib s/p AICD cardiac markers negative echo noted on Plavix, Aspirin JOSE did not tolerate CPAP uses 2L O2 nocturnally check nocturnal pulse ox as SOB is worse at night -- needs at least O2 supplement at HS discussed in detail with patient today re: importance of CPAP use and consequences of not using it he agreed to try CPAP again CPAP as inpatient while sleeping Hypothyroidism continue current dose of Synthroid Mood Disorder and Depression Psych consulted for medication review DVT ppx subq heparin FULL CODE Disposition PT recommending Rehab anticipate d/c to Rehab when cleared by Neurology Current Inpatient Medications: Current Inpatient Medications Medications (Trade) Dose Ordered Sig/Lashae Route Start Time Stop Time Status Last Admin Dose Admin Heparin Sodium (Porcine) (Heparin Sq 5000 Unit/0.5ml) 5,000 unit Q8 SQ 07/16/17 14:00 08/15/17 13:59 07/22/17 05:56 5,000 UNIT Insulin Aspart (novoLOG ASPART) SLIDING SCALE If C... ACHS SC 07/16/17 11:00 08/15/17 10:59 07/22/17 12:21 2 UNITS Glucose (Glucose 40% Gel) 15-30 GRAMS 15 GRAMS... UD PRN PO 07/16/17 10:45 08/15/17 10:44 Glucose (Glucose Chew Tab) 4-8 Tablets 4 Tabl... UD PRN PO 07/16/17 10:45 08/15/17 10:44 Dextrose (Dextrose 50% 50ML Syringe) 25-50ML OF 50% DW IV FOR... UD PRN IV 07/16/17 10:45 08/15/17 10:44 Glucagon (Glucagon Inj) 1 mg UD PRN SQ 07/16/17 10:45 08/15/17 10:44 Amlodipine Besylate (Norvasc Tab) 10 mg DAILY PO 07/17/17 09:00 08/16/17 08:59 07/22/17 07:55 10 MG Clopidogrel Bisulfate (plAVix TAB) 75 mg DAILY PO 07/17/17 09:00 08/16/17 08:59 07/22/17 07:53 75 MG Duloxetine HCl (Cymbalta Cap) 30 mg HS PO 07/16/17 21:00 08/15/17 20:59 07/21/17 20:30 30 MG Duloxetine HCl (Cymbalta Cap) 60 mg DAILY PO 07/17/17 09:00 08/16/17 08:59 07/22/17 07:55 60 MG Levothyroxine Sodium (Synthroid Tab) 50 mcg DAILYBB PO 07/17/17 06:30 08/16/17 06:59 07/22/17 05:50 50 MCG Magnesium Oxide (Mag-Ox Tab) 400 mg BID PO 07/16/17 21:00 08/15/17 20:59 07/22/17 07:55 400 MG Metoprolol Succinate (Toprol Xl Tab) 37.5 mg HS PO 07/16/17 21:00 08/15/17 20:59 07/21/17 20:31 37.5 MG Multivitamins (Multivitamin Tab) 1 tab DAILY PO 07/17/17 09:00 08/16/17 08:59 07/22/17 07:56 1 TAB Pantoprazole Sodium (Protonix Tab) 40 mg DAILY PO 07/17/17 09:00 08/16/17 08:59 07/22/17 07:55 40 MG Pregabalin (Lyrica Cap) 150 mg BID PO 07/16/17 21:00 08/15/17 20:59 07/22/17 07:53 150 MG Rosuvastatin Calcium (Crestor Tab) 40 mg DAILY PO 07/17/17 09:00 08/16/17 08:59 07/22/17 07:54 40 MG Sodium Chloride ([place] Nasal [place]) 1 sprays PRN PRN NA 07/16/17 16:45 08/15/17 16:44 Promethazine HCl 12.5 mg/Sodium Chloride 50.5 ml @ 204 mls/hr Q6H PRN IV 07/16/17 22:15 08/15/17 22:14 07/16/17 22:29 204 MLS/HR Albuterol/ Ipratropium (Combivent Respimat Inh) 1 puffs QID INH 07/18/17 13:00 08/17/17 12:59 07/22/17 12:21 1 PUFFS Miscellaneous Information (Consult Glycemic Management Pharmacy) 1 ea UD PRN N/A 07/18/17 09:45 08/17/17 09:44 Aspirin (Ecotrin Tab) 81 mg DAILY PO 07/19/17 09:00 08/18/17 08:59 07/22/17 07:53 81 MG Fenofibrate (Tricor) 200 mg QAM PO 07/20/17 09:00 08/19/17 08:59 07/22/17 07:56 200 MG Doxycycline Hyclate (Vibramycin Cap) 100 mg BID PO 07/20/17 10:00 07/25/17 23:59 07/22/17 07:53 100 MG Insulin Glargine (Lantus Solostar Pen) 18 units BID SC 07/21/17 21:00 08/20/17 20:59 07/22/17 08:28 18 UNITS Isosorbide Dinitrate (Isordil Tab) 10 mg BID PO 07/22/17 09:00 08/20/17 15:59 07/22/17 07:54 10 MG Bupropion HCl (Wellbutrin-Sr Tab) 150 mg BID17 PO 07/22/17 17:00 11/14/17 20:59 UNV Imipramine HCl (Tofranil Tab) 25 mg HS PO 07/22/17 21:00 08/15/17 20:59 UNV
--- NOTE | 2017-07-22 12:45 | Psychiatric Progress Notes ---
Psychiatric Progress Note Date of Service Jul 22, 2017. Notes patient remains hospitalized, interim progress reviewed. Will continue Tofranil taper to 50 mg total daily dose today then 25 mg po qhs for 1-2 more days. Given hx of sleep issues will shift Wellbutrin BID dosing to earlier in pm. If patient is discharged, follow Tofranil taper above and continue Wellbutrin and Cymbalta current doses. Follow-up with current prescribers.
--- NOTE | 2017-07-22 15:28 | PROGRESS NOTE ---
DATE: 07/22/2017 SUBJECTIVE: Cecil looks a little better today. His tricyclic antidepressant has been reduced a bit and I am going to drop his Lyrica down to 100 mg twice a day from the 150 twice a day. He claims to be pain free and the tremulousness and the myoclonic like activity certainly is less and he was able to get out of bed without a whole lot of shaking today and is working a crossword type puzzle today without much tremulousness of his hands, although there is a slight one of the outstretched hands without much in the way of a cerebellar dysmetria and without any asterixis. I suspect this was a drug-induced issue and perhaps an illness-induced issue with stress induced emergence of an underlying essential tremor pattern. We are certainly going to drop back on some of the Lyrica as this was a plan made for outpatient management anyway, according India Guzman, with whom I discussed the case yesterday and the patient is known to both she and Dr. India Low who has seen this man for several years now for has diabetic nerve pain. I will check back tomorrow and see if the tremor is even better on the reduced Lyrica, but it may take several days for this to be demonstrable and I really do not want to start an agent such as Mysoline in the setting if we can minimize the tremor by reducing some of the agents he is already on and still maintain pain relief. I will check with him tomorrow. [facility]
[2017-07-22] MEDS: DULOXETINE (CYMBALTA) 30 MG CAP PO SCH (20:49)
[2017-07-22] MEDS: METOPROLOL SUCC 25MG EXT REL TAB PO SCH (20:50)
[2017-07-22] MEDS: IMIPRAMINE HCL 25 MG TAB PO SCH (20:50)
[2017-07-22] MEDS: PREGABALIN 100 MG CAP PO SCH (20:50)
[2017-07-23] VITALS (7 sets, daily range): BP systolic 123–153; BP diastolic 57–76; PULSE 67–82; TEMP 36.3–37.1; O2SAT 93–98
[2017-07-23] MEDS: LEVOTHYROXINE 50 MCG TAB PO SCH (05:42)
[2017-07-23] MEDS: HEPARIN SOD 5000 UNIT/0.5 ML CARP SQ SCH ×3 (05:45→21:57)
[2017-07-23 07:50] LABS: CALCIUM 8.7 mg/dl (8.5-10.1); CREATININE 2.65 mg/dl (0.60-1.40)
[2017-07-23] MEDS: AMLODIPINE BESYLATE 5 MG TAB PO SCH (07:56)
[2017-07-23] MEDS: PREGABALIN 100 MG CAP PO SCH ×2 (07:56→21:18)
[2017-07-23] MEDS: MAGNESIUM OXIDE 400 MG TAB PO SCH ×2 (07:57→21:08)
[2017-07-23] MEDS: PANTOprazole SOD 40 MG TAB PO SCH (07:57)
[2017-07-23] MEDS: MULTIVITAMIN TAB PO SCH (07:57)
[2017-07-23] MEDS: ROSUVASTATIN CALCIUM 20 MG TAB PO SCH (07:57)
[2017-07-23] MEDS: DULOXETINE HCL 60 MG CAP PO SCH (07:57)
[2017-07-23] MEDS: DOXYCYCLINE HYCLATE 100 MG CAP PO SCH ×2 (07:58→21:06)
[2017-07-23] MEDS: ASPIRIN 81 MG ECTAB PO SCH (07:58)
[2017-07-23] MEDS: CLOPIDOGREL BISULFATE 75 MG TAB PO SCH (07:58)
[2017-07-23] MEDS: FENOFIBRATE 200 MG PO SCH (07:59)
[2017-07-23] MEDS: ISOSORBIDE DINITRATE 5 MG TAB PO SCH ×2 (07:59→21:08)
[2017-07-23] MEDS: IPRATROPIUM BROMIDE/ALBUTEROL respimat INH INH SCH ×4 (07:59→21:09)
[2017-07-23] MEDS: INSULIN ASPART 100 UNITS/ML 3 ML PEN SC SCH ×4 (08:15→21:00)
[2017-07-23] MEDS: INSULIN GLARGINE SOLOSTAR 100 UNITS/ML 3 ML PEN SC SCH ×2 (08:15→21:18)
--- NOTE | 2017-07-23 10:22 | Nephrology Progress Note ---
Nephrology Progress Note Date of Service: Jul 23, 2017. Subjective no voiding c/o; notes dependent edema; breathing improved but still 02 dependent ; has been using cpap/bipap hs and slept well w/ it. still w/ tremors/ weakness but these are better Objective Date Time Temp Pulse Resp B/P (MAP) Pulse Ox O2 Delivery O2 Flow Rate FiO2 07/23/17 08:00 Nasal Cannula 2.0 BiPAP 07/23/17 07:14 36.7 67 22 153/74 (100) 96 Nasal Cannula 2.0 07/23/17 04:20 36.7 71 20 128/57 (80) 98 CPAP 2.0 07/23/17 04:00 Nasal Cannula 2.0 07/23/17 00:00 Nasal Cannula 2.0 07/22/17 23:20 74 93 2.0 30 07/22/17 23:00 36.3 71 20 124/69 (87) 94 Nasal Cannula 2.0 07/22/17 20:00 Nasal Cannula 2.0 07/22/17 19:17 36.7 71 17 146/80 (102) 95 Nasal Cannula 2.0 07/22/17 16:00 Nasal Cannula 2.0 BiPAP 07/22/17 15:06 36.7 62 20 129/72 (91) 95 Nasal Cannula 2.0 07/22/17 12:00 Nasal Cannula 2.0 BiPAP 07/22/17 11:04 36.5 60 20 131/73 (92) 96 Nasal Cannula 2.0 Physical Exam: GENERAL: Awake, alert, oriented x3, obese. on 02NC, up in chair HEENT: Moist mucous membranes. NECK: Supple. PULMONARY: Clear to auscultation w/diminished air entry CARDIAC: Regular rate and rhythm. ABDOMEN: Bowel sounds positive, soft, nontender. EXTREMITIES: No significant clubbing, cyanosis; at most trace BL ankle edema. + R transmetatarsal amputation. NEUROLOGIC: Neff, fluent speech DERMATOLOGIC: No rash or ulcers noted. Current Inpatient Medications Medications (Trade) Dose Ordered Sig/Lashae Route Start Time Stop Time Status Last Admin Dose Admin Heparin Sodium (Porcine) (Heparin Sq 5000 Unit/0.5ml) 5,000 unit Q8 SQ 07/16/17 14:00 08/15/17 13:59 07/23/17 05:45 5,000 UNIT Insulin Aspart (novoLOG ASPART) SLIDING SCALE If C... ACHS SC 07/16/17 11:00 08/15/17 10:59 07/23/17 08:15 4 UNITS Glucose (Glucose 40% Gel) 15-30 GRAMS 15 GRAMS... UD PRN PO 07/16/17 10:45 08/15/17 10:44 Glucose (Glucose Chew Tab) 4-8 Tablets 4 Tabl... UD PRN PO 07/16/17 10:45 08/15/17 10:44 Dextrose (Dextrose 50% 50ML Syringe) 25-50ML OF 50% DW IV FOR... UD PRN IV 07/16/17 10:45 08/15/17 10:44 Glucagon (Glucagon Inj) 1 mg UD PRN SQ 07/16/17 10:45 08/15/17 10:44 Amlodipine Besylate (Norvasc Tab) 10 mg DAILY PO 07/17/17 09:00 08/16/17 08:59 07/23/17 07:56 10 MG Clopidogrel Bisulfate (plAVix TAB) 75 mg DAILY PO 07/17/17 09:00 08/16/17 08:59 07/23/17 07:58 75 MG Duloxetine HCl (Cymbalta Cap) 30 mg HS PO 07/16/17 21:00 08/15/17 20:59 07/22/17 20:49 30 MG Duloxetine HCl (Cymbalta Cap) 60 mg DAILY PO 07/17/17 09:00 08/16/17 08:59 07/23/17 07:57 60 MG Levothyroxine Sodium (Synthroid Tab) 50 mcg DAILYBB PO 07/17/17 06:30 08/16/17 06:59 07/23/17 05:42 50 MCG Magnesium Oxide (Mag-Ox Tab) 400 mg BID PO 07/16/17 21:00 08/15/17 20:59 07/23/17 07:57 400 MG Metoprolol Succinate (Toprol Xl Tab) 37.5 mg HS PO 07/16/17 21:00 08/15/17 20:59 07/22/17 20:50 37.5 MG Multivitamins (Multivitamin Tab) 1 tab DAILY PO 07/17/17 09:00 08/16/17 08:59 07/23/17 07:57 1 TAB Pantoprazole Sodium (Protonix Tab) 40 mg DAILY PO 07/17/17 09:00 08/16/17 08:59 07/23/17 07:57 40 MG Rosuvastatin Calcium (Crestor Tab) 40 mg DAILY PO 07/17/17 09:00 08/16/17 08:59 07/23/17 07:57 40 MG Sodium Chloride ([place] Nasal [place]) 1 sprays PRN PRN NA 07/16/17 16:45 08/15/17 16:44 Promethazine HCl 12.5 mg/Sodium Chloride 50.5 ml @ 204 mls/hr Q6H PRN IV 07/16/17 22:15 08/15/17 22:14 07/16/17 22:29 204 MLS/HR Albuterol/ Ipratropium (Combivent Respimat Inh) 1 puffs QID INH 07/18/17 13:00 08/17/17 12:59 07/23/17 07:59 1 PUFFS Miscellaneous Information (Consult Glycemic Management Pharmacy) 1 ea UD PRN N/A 07/18/17 09:45 08/17/17 09:44 Aspirin (Ecotrin Tab) 81 mg DAILY PO 07/19/17 09:00 08/18/17 08:59 07/23/17 07:58 81 MG Fenofibrate (Tricor) 200 mg QAM PO 07/20/17 09:00 08/19/17 08:59 07/23/17 07:59 200 MG Doxycycline Hyclate (Vibramycin Cap) 100 mg BID PO 07/20/17 10:00 07/25/17 23:59 07/23/17 07:58 100 MG Insulin Glargine (Lantus Solostar Pen) 18 units BID SC 07/21/17 21:00 08/20/17 20:59 07/23/17 08:15 18 UNITS Isosorbide Dinitrate (Isordil Tab) 10 mg BID PO 07/22/17 09:00 08/20/17 15:59 07/23/17 07:59 10 MG Bupropion HCl (Wellbutrin-Sr Tab) 150 mg BID17 PO 07/22/17 17:00 08/15/17 20:59 07/22/17 20:50 150 MG Imipramine HCl (Tofranil Tab) 25 mg HS PO 07/22/17 21:00 08/15/17 20:59 07/22/17 20:50 25 MG Pregabalin (Lyrica Cap) 100 mg BID PO 07/22/17 21:00 08/21/17 20:59 07/23/17 07:56 100 MG Last 24 Hours Test 07/22/17 11:24 07/22/17 16:13 07/22/17 20:05 07/23/17 06:46 Bedside Glucose 126 mg/dl 99 mg/dl 113 mg/dl Sodium Level 141 mmol/L Potassium Level 4.0 mmol/L Chloride Level 105 mmol/L Carbon Dioxide Level 30 mmol/L Anion Gap 7.0 mmol/L Blood Urea Nitrogen 37 mg/dl Creatinine 2.65 mg/dl Est Creatinine Clear Calc Drug Dose 32.2 ml/min Estimated GFR () 26.7 Estimated GFR (Non- 23.0 BUN/Creatinine Ratio 14.0 Random Glucose 114 mg/dl Calcium Level 8.7 mg/dl Test 07/23/17 07:17 Bedside Glucose 112 mg/dl Assessment & Plan 72 y/o M w/ second emergent eval w/in a month for acute dyspnea admitted 07/16 for same. He had CALVIN last month w/ creatinine up to 4; his spironolactone and lisinopril were stopped and renal function came back to baseline creatinine in mid 2's. -Chronic kidney disease stage IV in the setting of heart disease, hypertension, longstanding diabetes and chew tobacco. -at baseline; cont current meds/ care; daily bmp pls while in house -Hypertension. acceptable control -Shortness of breath, improving. likely multifactorial-favor at this point bronchitis, ?obesity hypoventilation, untreated sleep apnea>pulmonary HTN; do note he has had marked improvement with using cpap/bipap (has tolerated in hospital) and on 02nc; do not feel at this point there is diastolic HF to explain his dyspnea; do not believe he needs standing diuretics. I did stress w / pt importance of using cpap/bipap after d/c and he agrees >primary hospitalist to work on getting pt cpap/bipap after d/c (in past not tolerated) >consider CT chest to ensure no other processes to explain dypsnea since he came in w/ no vol OL Will follow with you. Care coordinated w/ Dr. Suarez
--- NOTE | 2017-07-23 12:16 | Progress Note ---
Medicine Progress Note Date & Time of Visit: Jul 23, 2017 at 12:11. Subjective resting in bedside chair, comfortable states he feels better again today denies dyspnea, chest pain, dizziness shakiness of the legs continue to improve tolerating Bipap at night no other symptoms Objective Last 8 Hrs Date Time Temp Pulse Resp B/P (MAP) Pulse Ox O2 Delivery O2 Flow Rate FiO2 07/23/17 11:13 36.5 82 20 123/62 (82) 96 Nasal Cannula 2.0 07/23/17 08:00 Nasal Cannula 2.0 BiPAP 07/23/17 07:14 36.7 67 22 153/74 (100) 96 Nasal Cannula 2.0 07/23/17 04:20 36.7 71 20 128/57 (80) 98 CPAP 2.0 Physical Exam: General- oriented x 3, not in distress, speaks in sentences with no effort Neck- no JVD Lungs- faint rales bilateral bases Heart- regular rhythm; no murmur, normal rate Abdomen- normal bowel sounds, soft, nontender Extremities- trace lower leg edema, no calf tenderness; peripheral pulses intact Neuro- alert, oriented x 3;no gross focal deficits Skin- warm & dry Laboratory Results: Last 24 Hours Test 07/22/17 16:13 07/22/17 20:05 07/23/17 06:46 07/23/17 07:17 Bedside Glucose 99 mg/dl 113 mg/dl 112 mg/dl Sodium Level 141 mmol/L Potassium Level 4.0 mmol/L Chloride Level 105 mmol/L Carbon Dioxide Level 30 mmol/L Anion Gap 7.0 mmol/L Blood Urea Nitrogen 37 mg/dl Creatinine 2.65 mg/dl Est Creatinine Clear Calc Drug Dose 32.2 ml/min Estimated GFR () 26.7 Estimated GFR (Non- 23.0 BUN/Creatinine Ratio 14.0 Random Glucose 114 mg/dl Calcium Level 8.7 mg/dl Test 07/23/17 11:09 Bedside Glucose 164 mg/dl Assessment & Plan This is a 72 year old male with a PMH of CAD s/p CABGx2, Hx. of Cardiac Arrest and V-Fib s/p AICD placement, insulin dependent DM2 with complications including peripheral vascular disease s/p R foot transmetatarsal amputation, CKD stage IV, JOSE on nocturnal O2, Hypothyroidism, Mood Disorder with depression - presents with shortness of breath ACUTE ON LIKELY CHRONIC DIASTOLIC CHF, Resolved - echo noted clinically improved with Lasix one dose Isordil TID added will need Lasix PRN 2-3x a week, PRN for CHF symptoms, but need to closely watch crea 07/21/17: given lasix 20mg po given (+) rales and pretibial edema again today will order Lasix 20mg po today - possible component of Acute Bronchitis? on Doxycycline Day 03/08 - appreciate Cardio SVC input TREMORS/SHAKES - multifactorial - from multiple psych meds? Psych consulted, medication doses decreased Lyrica also tapered down - from JOSE/ non adherence of CPAP? encouraged CPAP use and patient agreed, has been adherent for the past 3 days - r/o seizure EEG Negative - r/o Cerebellar Atrophy cannot perform MRI as patient has pacemaker CT head w/o contrast(+) old infarcts - from elevated Ammonia? Liver US: fatty liver GI consulted, likely noncontributory d/c lactulose - improving -appreciate Neuro recommendations anticipate d/c to Rehab DM 2 patient is on a high dose of insulin, takes 52 units twice daily of Lantus as well as a sliding scale of Novolog a1c 7.0 - (+) hypoglycemia the other day - Lantus decreased appreciate Pharm SVC recommendations HTN elevated Isordil added, increased to 10mg BID - BP improving, monitor CKD stage IV patient states that he was to have further kidney w/up - crea trending up, baseline 2.4 today 2.4 - will need to monitor crea - Nephrology consulted Hx. of CAD s/p CABGx2 Hx. of cardiac arrest and V-Fib s/p AICD cardiac markers negative echo noted on Plavix, Aspirin JOSE did not tolerate CPAP uses 2L O2 nocturnally check nocturnal pulse ox as SOB is worse at night -- needs at least O2 supplement at HS discussed in detail with patient today re: importance of CPAP use and consequences of not using it he agreed to try CPAP again CPAP as inpatient while sleeping Hypothyroidism continue current dose of Synthroid Mood Disorder and Depression Psych consulted for medication review DVT ppx subq heparin FULL CODE Disposition PT recommending Rehab anticipate d/c to Rehab when cleared by Neurology Current Inpatient Medications: Current Inpatient Medications Medications (Trade) Dose Ordered Sig/Lashae Route Start Time Stop Time Status Last Admin Dose Admin Heparin Sodium (Porcine) (Heparin Sq 5000 Unit/0.5ml) 5,000 unit Q8 SQ 07/16/17 14:00 08/15/17 13:59 07/23/17 05:45 5,000 UNIT Insulin Aspart (novoLOG ASPART) SLIDING SCALE If C... ACHS SC 07/16/17 11:00 08/15/17 10:59 07/23/17 08:15 4 UNITS Glucose (Glucose 40% Gel) 15-30 GRAMS 15 GRAMS... UD PRN PO 07/16/17 10:45 08/15/17 10:44 Glucose (Glucose Chew Tab) 4-8 Tablets 4 Tabl... UD PRN PO 07/16/17 10:45 08/15/17 10:44 Dextrose (Dextrose 50% 50ML Syringe) 25-50ML OF 50% DW IV FOR... UD PRN IV 07/16/17 10:45 08/15/17 10:44 Glucagon (Glucagon Inj) 1 mg UD PRN SQ 07/16/17 10:45 08/15/17 10:44 Amlodipine Besylate (Norvasc Tab) 10 mg DAILY PO 07/17/17 09:00 08/16/17 08:59 07/23/17 07:56 10 MG Clopidogrel Bisulfate (plAVix TAB) 75 mg DAILY PO 07/17/17 09:00 08/16/17 08:59 07/23/17 07:58 75 MG Duloxetine HCl (Cymbalta Cap) 30 mg HS PO 07/16/17 21:00 08/15/17 20:59 07/22/17 20:49 30 MG Duloxetine HCl (Cymbalta Cap) 60 mg DAILY PO 07/17/17 09:00 08/16/17 08:59 07/23/17 07:57 60 MG Levothyroxine Sodium (Synthroid Tab) 50 mcg DAILYBB PO 07/17/17 06:30 08/16/17 06:59 07/23/17 05:42 50 MCG Magnesium Oxide (Mag-Ox Tab) 400 mg BID PO 07/16/17 21:00 08/15/17 20:59 07/23/17 07:57 400 MG Metoprolol Succinate (Toprol Xl Tab) 37.5 mg HS PO 07/16/17 21:00 08/15/17 20:59 07/22/17 20:50 37.5 MG Multivitamins (Multivitamin Tab) 1 tab DAILY PO 07/17/17 09:00 08/16/17 08:59 07/23/17 07:57 1 TAB Pantoprazole Sodium (Protonix Tab) 40 mg DAILY PO 07/17/17 09:00 08/16/17 08:59 07/23/17 07:57 40 MG Rosuvastatin Calcium (Crestor Tab) 40 mg DAILY PO 07/17/17 09:00 08/16/17 08:59 07/23/17 07:57 40 MG Sodium Chloride ([place] Nasal [place]) 1 sprays PRN PRN NA 07/16/17 16:45 08/15/17 16:44 Promethazine HCl 12.5 mg/Sodium Chloride 50.5 ml @ 204 mls/hr Q6H PRN IV 07/16/17 22:15 08/15/17 22:14 07/16/17 22:29 204 MLS/HR Albuterol/ Ipratropium (Combivent Respimat Inh) 1 puffs QID INH 07/18/17 13:00 08/17/17 12:59 07/23/17 07:59 1 PUFFS Miscellaneous Information (Consult Glycemic Management Pharmacy) 1 ea UD PRN N/A 07/18/17 09:45 08/17/17 09:44 Aspirin (Ecotrin Tab) 81 mg DAILY PO 07/19/17 09:00 08/18/17 08:59 07/23/17 07:58 81 MG Fenofibrate (Tricor) 200 mg QAM PO 07/20/17 09:00 08/19/17 08:59 07/23/17 07:59 200 MG Doxycycline Hyclate (Vibramycin Cap) 100 mg BID PO 07/20/17 10:00 07/25/17 23:59 07/23/17 07:58 100 MG Insulin Glargine (Lantus Solostar Pen) 18 units BID SC 07/21/17 21:00 08/20/17 20:59 07/23/17 08:15 18 UNITS Isosorbide Dinitrate (Isordil Tab) 10 mg BID PO 07/22/17 09:00 08/20/17 15:59 07/23/17 07:59 10 MG Bupropion HCl (Wellbutrin-Sr Tab) 150 mg BID17 PO 07/22/17 17:00 08/15/17 20:59 07/22/17 20:50 150 MG Imipramine HCl (Tofranil Tab) 25 mg HS PO 07/22/17 21:00 08/15/17 20:59 07/22/17 20:50 25 MG Pregabalin (Lyrica Cap) 100 mg BID PO 07/22/17 21:00 08/21/17 20:59 07/23/17 07:56 100 MG
[2017-07-23] MEDS ORDERED: FUROSEMIDE 20 MG TAB PO ONE (12:30)
--- NOTE | 2017-07-23 14:49 | DIAGNOSTIC IMAGING REPORT ---
(CHEST) THORAX WITHOUT CLINICAL HISTORY: Hypoxia COMPARISON STUDY: Chest x-ray dated 07-17 CT DOSE: 1151.81 mGy.cm TECHNIQUE: CT of the thorax was performed from the thoracic inlet to the lung bases. Images are reviewed in the axial, sagittal, and coronal planes. IV contrast was not administered for this examination. A dose lowering technique was utilized adhering to the principles of ALARA. FINDINGS: Thyroid: Imaged portions of the thyroid gland are normal in appearance. Thoracic aorta: The thoracic aorta is normal in course and caliber, noting standard 3 vessel arch anatomy. Heart: There are coronary artery calcifications. There are postsurgical changes of a midline sternotomy. Lungs and pleural spaces: There are mild dependent atelectatic changes. There are no areas of pulmonary consolidation to indicate pneumonia. There are bilateral parenchymal opacities which are likely atelectatic. There is a 4 mm solid pulmonary nodule with the lingula. Mediastinum: There is no mediastinal lymphadenopathy. Mi: There is no evidence of pathologic hilar adenopathy given the limitations of a noncontrast study. Axilla: Clear. Upper abdomen: There is hepatic steatosis. The gallbladder surgically absent. Skeletal structures: Multiple old left-sided rib fractures are visualized. IMPRESSION: 1. No evidence of pathologic adenopathy 2. No evidence for pneumonia. Bilateral parenchymal opacities which are felt to be atelectatic 3. 4 mm solid pulmonary nodule within the lingula. A low risk patient, no follow-up is indicated. In a high risk patient, a 12 month follow-up is optional. 4. Hepatic steatosis Please refer to below summary of Fleischner criteria recommendations for follow-up of incidental CT nodules (Toñito Roy, Guidelines for management of small pulmonary nodules detected on CT scans: A statement from the Fleischner Society, Radiology 237: [phone].) SOLID NODULES Solitary nodule size: <6 mm * low risk patients: no follow-up needed * high risk patients: optional CT at 12 months Solitary nodule size: 6-8 mm * low risk patients: follow-up at 6-12 months, then consider further follow-up at 18-24 months * high risk patients: initial follow-up CT at 6-12 months and then at 18-24 months if no change Solitary nodule size: >8 mm * either low or high risk patients - consider follow-up CT at 3 months, and/or CT-PET, and/or biopsy Multiple nodules size: <6 mm * low risk patients: no routine follow-up * high risk patients: optional CT at 12 months Multiple nodules size: 6-8 mm * low risk patients: follow-up at 3-6 months, then consider further follow-up at 18-24 months * high risk patients: follow-up at 3-6 months, then at 18-24 months if no change Multiple nodules size: >8 mm * low risk patients: follow-up at 3-6 months, then consider further follow-up at 18-24 months * high risk patients: follow-up at 3-6 months, then at 18-24 months if no change Note: newly detected indeterminate nodule in persons 35 years of age or older. * low risk patients: minimal or absent history of smoking and/or other known risk factors * high risk patients: history of smoking or of other known risk factors (e.g. first degree relative with lung cancer, or exposure to asbestos, radon, uranium) * if a nodule up to 8 mm is partly solid or is ground glass further follow-up is required after 24 months to exclude possible slow growing adenocarcinoma (VASYL) SUBSOLID NODULES Solitary pure ground-glass nodule * nodule size <6 mm - no CT follow-up required * nodule size >=6 mm - follow-up CT at 6-12 months, then every 2 years until 5 years Solitary part-solid nodule * nodule size <6 mm - no CT follow-up required * nodule size >=6 mm - follow-up CT at 3-6 months. If unchanged, and solid component remains <6 mm, then annual follow-up for 5 years Multiple subsolid nodules * nodule size <6 mm - follow-up CT at 3-6 months, consider further follow-up at 2 and 4 years if stable * nodule size >=6 mm - follow-up CT at 3-6 months, subsequent management based on the most suspicious nodule(s) Electronically signed by: Fabian Durham M.D. 07/23/2017 2:48 PM Dictated Date/Time: 07/23/2017 2:43 PM
--- NOTE | 2017-07-23 15:24 | PROGRESS NOTE ---
DATE: 07/23/2017 SUBJECTIVE: Cecil was seen today, he still has a little tremor of the outstretched hands and the peculiar general body tremulousness almost myoclonic activity when he tries to rise from a supine posture to a seated posture while in bed. He has a little bit of this when he goes from a seated posture to lying down, but most of this effort related on the arising maneuver. It is hard to classify this. It looks probably to be in the class of what we term postural tremor and it may be part of an essential tremor picture. He certainly has a typical feature of essential tremor of his hands, which is mild. The lyrica is being tapered down. He is apparently going to be discharged to an extended care facility or perhaps a personal care facility and he should follow up in neurology with India Low M.D. for an assessment in probably a month or so, just to see if they have any more recommendations regarding potential treatment or further reduction of his Lyrica. I have him now down to 100 mg twice a day and I think the plan was to drop that to that level and then he was to be seen in the office, his pain assessed and if he was still relatively pain free from his neuropathy drop even further. The onset of this tremor is very difficult to establish, he thinks it has been 2-3 years, but when I discussed the case with India Soto, she does not recall seeing much in the way of tremor other than perhaps some tremulousness in the hands, so this postural tremor might be new or might have been something he did not talk about in the clinic. He is a little tangential and distracted, I am not sure he does not have a significant cognitive impairment syndrome. So, history from him unfortunately is probably less reliable. He is going to be discharged tomorrow, so I suspect he will need to have an appointment to see India Soto and India Low in about a month. If not, India Soto and India Low will be assuming the inpatient service tomorrow and can pick him up from there. [facility]ENTER[facility]
--- NOTE | 2017-07-23 15:43 | Pharmacy Progress Note ---
Glycemic: Assessment & Plan Date of Service Jul 23, 2017. Assessment & Plan ASSESSMENT: * The patient is currently receiving 47 units of insulin per day. * BSGs ranging 99 - 126 mg/dl over the past 24hrs. * Fasting BSG at goal * Post-prandial BSGs trending down throughout the day. Loosen carb coverage. PLAN FOR INPATIENT GLYCEMIC CONTROL: * Continue Lantus 18 units SQ BID * Bolus insulin * NovoLog per scale ACHS or Q6hrs while NPO * Goal Range: Low 110 mg/dL - High 140 mg/dL * Correction Factor: 20 mg/dL/unit * Change carb ration to 1 unit per 10 grams CHO consumed RECOMMENDATIONS FOR DISCHARGE: * Patient's HbA1C within goal for patient (goal for patient is 7.6-8.0% based upon Elements of Diabetes Care Scoring Scale) .... as long as patient has no hypoglycemia at home it is reasonable to continue current regimen. * Please note that the plan above was derived based on current level of insulin resistance and hospital stress. These recommendations are appropriate for inpatient admission only. Plan of care upon discharge will need to be reassessed to avoid potential outpatient hypo/hyperglycemia.
[2017-07-23] MEDS: BuPROPion SR 150 MG TABCR PO SCH (17:25)
[2017-07-23] MEDS: DULOXETINE (CYMBALTA) 30 MG CAP PO SCH (21:06)
[2017-07-23] MEDS: METOPROLOL SUCC 25MG EXT REL TAB PO SCH (21:07)
[2017-07-23] MEDS: IMIPRAMINE HCL 25 MG TAB PO SCH (21:09)
[2017-07-24] MEDS: HEPARIN SOD 5000 UNIT/0.5 ML CARP SQ SCH ×3 (05:43→20:48)
[2017-07-24] MEDS: LEVOTHYROXINE 50 MCG TAB PO SCH (06:02)
[2017-07-24 06:13] LABS: BUN/CREATININE RATIO 14.1 (10-20); CALCIUM 8.6 mg/dl (8.5-10.1); CREATININE 2.73 mg/dl (0.60-1.40)
[2017-07-24 07:35] VITALS: BP 147/79; PULSE 66; TEMP 36.3; O2SAT 93
[2017-07-24 08:00] VITALS: O2SAT 93
[2017-07-24] MEDS: IPRATROPIUM BROMIDE/ALBUTEROL respimat INH INH SCH ×4 (08:29→20:37)
[2017-07-24] MEDS: ROSUVASTATIN CALCIUM 20 MG TAB PO SCH (08:30)
[2017-07-24] MEDS: DULOXETINE HCL 60 MG CAP PO SCH (08:30)
[2017-07-24] MEDS: ASPIRIN 81 MG ECTAB PO SCH (08:30)
[2017-07-24] MEDS: PANTOprazole SOD 40 MG TAB PO SCH (08:30)
[2017-07-24] MEDS: BuPROPion SR 150 MG TABCR PO SCH ×2 (08:30→17:54)
[2017-07-24] MEDS: DOXYCYCLINE HYCLATE 100 MG CAP PO SCH ×2 (08:30→20:39)
[2017-07-24] MEDS: AMLODIPINE BESYLATE 5 MG TAB PO SCH (08:31)
[2017-07-24] MEDS: ISOSORBIDE DINITRATE 5 MG TAB PO SCH ×2 (08:31→20:38)
[2017-07-24] MEDS: MULTIVITAMIN TAB PO SCH (08:31)
[2017-07-24] MEDS: MAGNESIUM OXIDE 400 MG TAB PO SCH ×2 (08:31→20:38)
[2017-07-24] MEDS: CLOPIDOGREL BISULFATE 75 MG TAB PO SCH (08:31)
[2017-07-24] MEDS: FENOFIBRATE 200 MG PO SCH (08:32)
[2017-07-24] MEDS: INSULIN ASPART 100 UNITS/ML 3 ML PEN SC SCH ×4 (08:35→20:34)
[2017-07-24] MEDS: PREGABALIN 100 MG CAP PO SCH ×2 (08:37→20:36)
[2017-07-24] MEDS: INSULIN GLARGINE SOLOSTAR 100 UNITS/ML 3 ML PEN SC SCH ×2 (08:42→20:48)
[2017-07-24 10:30] VITALS: PULSE 73; O2SAT 90
[2017-07-24 14:57] VITALS: BP 108/62; PULSE 67; TEMP 36.6; O2SAT 93
--- NOTE | 2017-07-24 18:52 | Progress Note ---
Medicine Progress Note Date & Time of Visit: Jul 24, 2017 at 18:47. Subjective seen resting in bed, comfortable at bedside no dyspnea shaking has improved much no other symptoms Objective Last 8 Hrs Date Time Temp Pulse Resp B/P (MAP) Pulse Ox O2 Delivery O2 Flow Rate FiO2 07/24/17 16:00 Room Air 07/24/17 14:57 36.6 67 18 108/62 (77) 93 Room Air Physical Exam: General- oriented x 3, not in distress, speaks in sentences with no effort Neck- no JVD Lungs- clear breath sounds bilaterally Heart- regular rhythm; no murmur, normal rate Abdomen- normal bowel sounds, soft, nontender Extremities- trace lower leg edema, no calf tenderness Neuro- alert, oriented x 3;no gross focal deficits Skin- warm & dry Laboratory Results: Last 24 Hours Test 07/23/17 20:07 07/24/17 05:17 07/24/17 07:20 07/24/17 11:39 Bedside Glucose 94 mg/dl 107 mg/dl 176 mg/dl Sodium Level 141 mmol/L Potassium Level 4.0 mmol/L Chloride Level 107 mmol/L Carbon Dioxide Level 27 mmol/L Anion Gap 7.0 mmol/L Blood Urea Nitrogen 38 mg/dl Creatinine 2.73 mg/dl Est Creatinine Clear Calc Drug Dose 31.3 ml/min Estimated GFR () 25.8 Estimated GFR (Non- 22.2 BUN/Creatinine Ratio 14.1 Random Glucose 104 mg/dl Calcium Level 8.6 mg/dl Test 07/24/17 16:02 Bedside Glucose 110 mg/dl Assessment & Plan This is a 72 year old male with a PMH of CAD s/p CABGx2, Hx. of Cardiac Arrest and V-Fib s/p AICD placement, insulin dependent DM2 with complications including peripheral vascular disease s/p R foot transmetatarsal amputation, CKD stage IV, JOSE on nocturnal O2, Hypothyroidism, Mood Disorder with depression - presents with shortness of breath ACUTE ON LIKELY CHRONIC DIASTOLIC CHF, Resolved - echo noted clinically improved with Lasix one dose Isordil TID added will need Lasix PRN 2-3x a week, but need to closely watch crea - possible component of Acute Bronchitis? on Doxycycline Day 04/07 - appreciate Cardio SVC input TREMORS/SHAKES - multifactorial - from multiple psych meds? Psych consulted, medication doses decreased Lyrica also tapered down - from JOSE/ non adherence of CPAP? encouraged CPAP use and patient agreed, has been adherent for the past 3 days - r/o seizure EEG Negative - r/o Cerebellar Atrophy cannot perform MRI as patient has pacemaker CT head w/o contrast(+) old infarcts - from elevated Ammonia? Liver US: fatty liver GI consulted, likely noncontributory d/c lactulose - improving -appreciate Neuro recommendations anticipate d/c to Rehab DM 2 patient is on a high dose of insulin, takes 52 units twice daily of Lantus as well as a sliding scale of Novolog a1c 7.0 - (+) hypoglycemia the other day - Lantus decreased appreciate Pharm SVC recommendations HTN elevated Isordil added, increased to 10mg BID - BP improving, monitor CKD stage IV patient states that he was to have further kidney w/up - crea trending up, baseline 2.4 today 2.7 - will need to monitor crea - Nephrology consulted Hx. of CAD s/p CABGx2 Hx. of cardiac arrest and V-Fib s/p AICD cardiac markers negative echo noted on Plavix, Aspirin JOSE did not tolerate CPAP uses 2L O2 nocturnally check nocturnal pulse ox as SOB is worse at night -- needs at least O2 supplement at HS discussed in detail with patient today re: importance of CPAP use and consequences of not using it he agreed to try CPAP again CPAP as inpatient while sleeping Hypothyroidism continue current dose of Synthroid Mood Disorder and Depression Psych consulted for medication review DVT ppx subq heparin FULL CODE Disposition PT recommending Rehab anticipate d/c to Rehab when approved Current Inpatient Medications: Current Inpatient Medications Medications (Trade) Dose Ordered Sig/Lashae Route Start Time Stop Time Status Last Admin Dose Admin Heparin Sodium (Porcine) (Heparin Sq 5000 Unit/0.5ml) 5,000 unit Q8 SQ 07/16/17 14:00 08/15/17 13:59 07/24/17 14:34 5,000 UNIT Insulin Aspart (novoLOG ASPART) SLIDING SCALE If C... ACHS SC 07/16/17 11:00 08/15/17 10:59 07/24/17 17:57 3 UNITS Glucose (Glucose 40% Gel) 15-30 GRAMS 15 GRAMS... UD PRN PO 07/16/17 10:45 08/15/17 10:44 Glucose (Glucose Chew Tab) 4-8 Tablets 4 Tabl... UD PRN PO 07/16/17 10:45 08/15/17 10:44 Dextrose (Dextrose 50% 50ML Syringe) 25-50ML OF 50% DW IV FOR... UD PRN IV 07/16/17 10:45 08/15/17 10:44 Glucagon (Glucagon Inj) 1 mg UD PRN SQ 07/16/17 10:45 08/15/17 10:44 Amlodipine Besylate (Norvasc Tab) 10 mg DAILY PO 07/17/17 09:00 08/16/17 08:59 07/24/17 08:31 10 MG Clopidogrel Bisulfate (plAVix TAB) 75 mg DAILY PO 07/17/17 09:00 08/16/17 08:59 07/24/17 08:31 75 MG Duloxetine HCl (Cymbalta Cap) 30 mg HS PO 07/16/17 21:00 08/15/17 20:59 07/23/17 21:06 30 MG Duloxetine HCl (Cymbalta Cap) 60 mg DAILY PO 07/17/17 09:00 08/16/17 08:59 07/24/17 08:30 60 MG Levothyroxine Sodium (Synthroid Tab) 50 mcg DAILYBB PO 07/17/17 06:30 08/16/17 06:59 07/24/17 06:02 50 MCG Magnesium Oxide (Mag-Ox Tab) 400 mg BID PO 07/16/17 21:00 08/15/17 20:59 07/24/17 08:31 400 MG Metoprolol Succinate (Toprol Xl Tab) 37.5 mg HS PO 07/16/17 21:00 08/15/17 20:59 07/23/17 21:07 37.5 MG Multivitamins (Multivitamin Tab) 1 tab DAILY PO 07/17/17 09:00 08/16/17 08:59 07/24/17 08:31 1 TAB Pantoprazole Sodium (Protonix Tab) 40 mg DAILY PO 07/17/17 09:00 08/16/17 08:59 07/24/17 08:30 40 MG Rosuvastatin Calcium (Crestor Tab) 40 mg DAILY PO 07/17/17 09:00 08/16/17 08:59 07/24/17 08:30 40 MG Sodium Chloride ([place] Nasal [place]) 1 sprays PRN PRN NA 07/16/17 16:45 08/15/17 16:44 Promethazine HCl 12.5 mg/Sodium Chloride 50.5 ml @ 204 mls/hr Q6H PRN IV 07/16/17 22:15 08/15/17 22:14 07/16/17 22:29 204 MLS/HR Albuterol/ Ipratropium (Combivent Respimat Inh) 1 puffs QID INH 07/18/17 13:00 08/17/17 12:59 07/24/17 17:53 1 PUFFS Miscellaneous Information (Consult Glycemic Management Pharmacy) 1 ea UD PRN N/A 07/18/17 09:45 08/17/17 09:44 Aspirin (Ecotrin Tab) 81 mg DAILY PO 07/19/17 09:00 08/18/17 08:59 07/24/17 08:30 81 MG Fenofibrate (Tricor) 200 mg QAM PO 07/20/17 09:00 08/19/17 08:59 07/24/17 08:32 200 MG Doxycycline Hyclate (Vibramycin Cap) 100 mg BID PO 07/20/17 10:00 07/25/17 23:59 07/24/17 08:30 100 MG Insulin Glargine (Lantus Solostar Pen) 18 units BID SC 07/21/17 21:00 08/20/17 20:59 07/24/17 08:42 18 UNITS Isosorbide Dinitrate (Isordil Tab) 10 mg BID PO 07/22/17 09:00 08/20/17 15:59 07/24/17 08:31 10 MG Bupropion HCl (Wellbutrin-Sr Tab) 150 mg BID17 PO 07/22/17 17:00 08/15/17 20:59 07/24/17 17:54 150 MG Imipramine HCl (Tofranil Tab) 25 mg HS PO 07/22/17 21:00 08/15/17 20:59 07/23/17 21:09 25 MG Pregabalin (Lyrica Cap) 100 mg BID PO 07/22/17 21:00 08/21/17 20:59 07/24/17 08:37 100 MG
[2017-07-24] MEDS: DULOXETINE (CYMBALTA) 30 MG CAP PO SCH (20:39)
[2017-07-24] MEDS: METOPROLOL SUCC 25MG EXT REL TAB PO SCH (20:40)
[2017-07-24] MEDS: IMIPRAMINE HCL 25 MG TAB PO SCH (20:51)
[2017-07-24 23:00] VITALS: PULSE 69; O2SAT 95
[2017-07-25 00:09] VITALS: BP 115/62; PULSE 71; TEMP 36.9; O2SAT 91
[2017-07-25] MEDS: HEPARIN SOD 5000 UNIT/0.5 ML CARP SQ SCH ×2 (05:29→14:00)
[2017-07-25] MEDS: LEVOTHYROXINE 50 MCG TAB PO SCH (05:29)
[2017-07-25 07:20] VITALS: BP 129/76; PULSE 60; TEMP 36.9; O2SAT 95
[2017-07-25] MEDS: PREGABALIN 100 MG CAP PO SCH (08:20)
[2017-07-25] MEDS: CLOPIDOGREL BISULFATE 75 MG TAB PO SCH (08:21)
[2017-07-25] MEDS: ISOSORBIDE DINITRATE 5 MG TAB PO SCH (08:21)
[2017-07-25] MEDS: MAGNESIUM OXIDE 400 MG TAB PO SCH (08:21)
[2017-07-25] MEDS: BuPROPion SR 150 MG TABCR PO SCH (08:22)
[2017-07-25] MEDS: AMLODIPINE BESYLATE 5 MG TAB PO SCH (08:22)
[2017-07-25] MEDS: DULOXETINE HCL 60 MG CAP PO SCH (08:22)
[2017-07-25] MEDS: ROSUVASTATIN CALCIUM 20 MG TAB PO SCH (08:23)
[2017-07-25] MEDS: MULTIVITAMIN TAB PO SCH (08:23)
[2017-07-25] MEDS: FENOFIBRATE 200 MG PO SCH (08:23)
[2017-07-25] MEDS: PANTOprazole SOD 40 MG TAB PO SCH (08:23)
[2017-07-25] MEDS: IPRATROPIUM BROMIDE/ALBUTEROL respimat INH INH SCH ×2 (08:24→12:29)
[2017-07-25] MEDS: DOXYCYCLINE HYCLATE 100 MG CAP PO SCH (08:24)
[2017-07-25] MEDS: ASPIRIN 81 MG ECTAB PO SCH (08:24)
[2017-07-25] MEDS: INSULIN ASPART 100 UNITS/ML 3 ML PEN SC SCH ×2 (08:26→12:29)
[2017-07-25] MEDS: INSULIN GLARGINE SOLOSTAR 100 UNITS/ML 3 ML PEN SC SCH (08:27)
--- NOTE | 2017-07-25 09:52 | Pharmacy Progress Note ---
Glycemic: Assessment & Plan Date of Service Jul 25, 2017. Assessment & Plan Outpatient Anti-diabetic Regimen: * Lantus 52 units SQ BID * Novolog 29 units AC and correction factor of 1 unit for every 50 mg/dL over 150 mg/dL * A1c: 7% (07/17/17) ASSESSMENT: * The patient is currently receiving ~50 units of insulin per day. * BSGs ranging 94 - 176 mg/dl over the past 48hrs. * Fasting BSG at goal, post-prandial BSGs are reasonable * No changes required at this time PLAN FOR INPATIENT GLYCEMIC CONTROL: * Continue Lantus 18 units SQ BID * Bolus insulin * NovoLog per scale ACHS or Q6hrs while NPO * Goal Range: Low 110 mg/dL - High 140 mg/dL * Correction Factor: 20 mg/dL/unit * Nutritional / Prandial insulin per carb ratio of 1 unit per 10 grams CHO consumed RECOMMENDATIONS FOR DISCHARGE: * Patient's HbA1C is within goal (goal for patient is 7.6-8.0% based upon Elements of Diabetes Care Scoring Scale). * As long as patient has no hypoglycemia at home, it is reasonable to continue current regimen. Thank you.
[2017-07-25 11:05] VITALS: BP 142/77; PULSE 70; TEMP 36.6; O2SAT 96
--- NOTE | 2017-07-25 12:27 | Progress Note ---
Medicine Progress Note Date & Time of Visit: Jul 25, 2017 at 12:12. Subjective seen resting in bed, comfortable states he feels good denies dyspnea, cough, chest pain shaking/tremors much better denies other symptoms states he is ready and would like to be discharged today Objective Last 8 Hrs Date Time Temp Pulse Resp B/P (MAP) Pulse Ox O2 Delivery O2 Flow Rate FiO2 07/25/17 11:05 36.6 70 16 142/77 (98) 96 Room Air 07/25/17 08:00 BiPAP 07/25/17 07:20 36.9 60 14 129/76 (93) 95 Physical Exam: General- oriented x 3, not in distress, speaks in sentences with no effort Neck- no JVD Lungs- clear breath sounds bilaterally, no rales/wheezes Heart- regular rhythm; no murmur, normal rate Abdomen- normal bowel sounds, soft, nontender Extremities- trace lower leg edema, no calf tenderness Neuro- alert, oriented x 3;no gross focal deficits Skin- warm & dry Laboratory Results: Last 24 Hours Test 07/24/17 16:02 07/24/17 20:24 07/25/17 07:13 07/25/17 11:32 Bedside Glucose 110 mg/dl 107 mg/dl 115 mg/dl 116 mg/dl Assessment & Plan This is a 72 year old male with a PMH of CAD s/p CABGx2, Hx. of Cardiac Arrest and V-Fib s/p AICD placement, insulin dependent DM2 with complications including peripheral vascular disease s/p R foot transmetatarsal amputation, CKD stage IV, JOSE on nocturnal O2, Hypothyroidism, Mood Disorder with depression - presents with shortness of breath ACUTE ON LIKELY CHRONIC DIASTOLIC CHF, Resolved - echo noted Cardiology Service Dr. Pearce consulted Isordil added Lasix given, will need Lasix 20mg po 2x a week monitor BP and volume status closely ff up with Insurance Case Manager Dr. Pearce in 2 weeks - possible component of Acute Bronchitis complete Doxycycline x 7 days TREMORS/SHAKES - multifactorial Neurologist Dr. Dockery and Psychiatrist Dr. Garcia consulted - from multiple psych meds Psych consulted, medication doses decreased Lyrica also tapered down monitor as outpatient - from JOSE/ non adherence of CPAP encouraged CPAP use and patient agreed, has been adherent so far continue to encourage use of CPAP when sleeping - seizure ruled out EEG Negative - Cerebellar Atrophy ruled out cannot perform MRI as patient has pacemaker CT head w/o contrast (+) old infarcts - improving daily continue PT and OT Fall Precautions ff up with Neurologist Dr. Dockery and outpatient Psychiatrist in 1-2 weeks DM 2 patient is on a high dose of insulin, takes 52 units twice daily of Lantus as well as a sliding scale of Novolog a1c 7.0 Pharmacy Glycemic Control consulted - continue current inpatient Insulin regimen: Lantus 18 units SQ BID * Bolus insulin * NovoLog per scale ACHS or Q6hrs while NPO * Goal Range: Low 110 mg/dL - High 140 mg/dL * Correction Factor: 20 mg/dL/unit * Nutritional / Prandial insulin per carb ratio of 1 unit per 10 grams CHO consumed HTN elevated Isordil added, increased to 10mg BID - BP improving, monitor CKD stage IV - crea within baseline overall - will need to monitor crea closely while on Lasix twice a wee - Nephrology consulted ff up with Dr. Blanco in 1-2 weeks Hx. of CAD s/p CABGx2 Hx. of Cardiac arrest and V-Fib s/p AICD cardiac markers negative echo noted on Plavix, Aspirin OBSTRUCTIVE SLEEP APNEA uses 2L O2 nocturnally nocturnal pulse ox as SOB is worse at night -- discussed in detail with patient re: importance of CPAP use and consequences of not using it he agreed to try CPAP and has been adherent since continue to encourage CPAP use Hypothyroidism continue current dose of Synthroid Mood Disorder and Depression Psych consulted for medication adjustments in light of tremors/shaking Tofranil tapered off, Cymbalta and Wellbutrin decreased continue ff up with outpatient Psychiatrist DVT ppx subq heparin given FULL CODE Disposition transition to Rehab ff up with Primary Care Physician in 1 week ff up with Insurance Case Manager Dr. Pearce, Neurologist Dr. Dockery, [employer] Molder Dr. Blanco in 2 weeks. Current Inpatient Medications: Current Inpatient Medications Medications (Trade) Dose Ordered Sig/Lashae Route Start Time Stop Time Status Last Admin Dose Admin Heparin Sodium (Porcine) (Heparin Sq 5000 Unit/0.5ml) 5,000 unit Q8 SQ 07/16/17 14:00 08/15/17 13:59 07/25/17 05:29 5,000 UNIT Insulin Aspart (novoLOG ASPART) SLIDING SCALE If C... ACHS SC 07/16/17 11:00 08/15/17 10:59 07/25/17 08:26 4 UNITS Glucose (Glucose 40% Gel) 15-30 GRAMS 15 GRAMS... UD PRN PO 07/16/17 10:45 08/15/17 10:44 Glucose (Glucose Chew Tab) 4-8 Tablets 4 Tabl... UD PRN PO 07/16/17 10:45 08/15/17 10:44 Dextrose (Dextrose 50% 50ML Syringe) 25-50ML OF 50% DW IV FOR... UD PRN IV 07/16/17 10:45 08/15/17 10:44 Glucagon (Glucagon Inj) 1 mg UD PRN SQ 07/16/17 10:45 08/15/17 10:44 Amlodipine Besylate (Norvasc Tab) 10 mg DAILY PO 07/17/17 09:00 08/16/17 08:59 07/25/17 08:22 10 MG Clopidogrel Bisulfate (plAVix TAB) 75 mg DAILY PO 07/17/17 09:00 08/16/17 08:59 07/25/17 08:21 75 MG Duloxetine HCl (Cymbalta Cap) 30 mg HS PO 07/16/17 21:00 08/15/17 20:59 07/24/17 20:39 30 MG Duloxetine HCl (Cymbalta Cap) 60 mg DAILY PO 07/17/17 09:00 08/16/17 08:59 07/25/17 08:22 60 MG Levothyroxine Sodium (Synthroid Tab) 50 mcg DAILYBB PO 07/17/17 06:30 08/16/17 06:59 07/25/17 05:29 50 MCG Magnesium Oxide (Mag-Ox Tab) 400 mg BID PO 07/16/17 21:00 08/15/17 20:59 07/25/17 08:21 400 MG Metoprolol Succinate (Toprol Xl Tab) 37.5 mg HS PO 07/16/17 21:00 08/15/17 20:59 07/24/17 20:40 37.5 MG Multivitamins (Multivitamin Tab) 1 tab DAILY PO 07/17/17 09:00 08/16/17 08:59 07/25/17 08:23 1 TAB Pantoprazole Sodium (Protonix Tab) 40 mg DAILY PO 07/17/17 09:00 08/16/17 08:59 07/25/17 08:23 40 MG Rosuvastatin Calcium (Crestor Tab) 40 mg DAILY PO 07/17/17 09:00 08/16/17 08:59 07/25/17 08:23 40 MG Sodium Chloride ([place] Nasal [place]) 1 sprays PRN PRN NA 07/16/17 16:45 08/15/17 16:44 Promethazine HCl 12.5 mg/Sodium Chloride 50.5 ml @ 204 mls/hr Q6H PRN IV 07/16/17 22:15 08/15/17 22:14 07/16/17 22:29 204 MLS/HR Albuterol/ Ipratropium (Combivent Respimat Inh) 1 puffs QID INH 07/18/17 13:00 08/17/17 12:59 07/25/17 08:24 1 PUFFS Miscellaneous Information (Consult Glycemic Management Pharmacy) 1 ea UD PRN N/A 07/18/17 09:45 08/17/17 09:44 Aspirin (Ecotrin Tab) 81 mg DAILY PO 07/19/17 09:00 08/18/17 08:59 07/25/17 08:24 81 MG Fenofibrate (Tricor) 200 mg QAM PO 07/20/17 09:00 08/19/17 08:59 07/25/17 08:23 200 MG Doxycycline Hyclate (Vibramycin Cap) 100 mg BID PO 07/20/17 10:00 07/25/17 23:59 07/25/17 08:24 100 MG Insulin Glargine (Lantus Solostar Pen) 18 units BID SC 07/21/17 21:00 08/20/17 20:59 07/25/17 08:27 18 UNITS Isosorbide Dinitrate (Isordil Tab) 10 mg BID PO 07/22/17 09:00 08/20/17 15:59 07/25/17 08:21 10 MG Bupropion HCl (Wellbutrin-Sr Tab) 150 mg BID17 PO 07/22/17 17:00 08/15/17 20:59 07/25/17 08:22 150 MG Imipramine HCl (Tofranil Tab) 25 mg HS PO 07/22/17 21:00 08/15/17 20:59 10/23/17 20:51 25 MG Pregabalin (Lyrica Cap) 100 mg BID PO 07/22/17 21:00 08/21/17 20:59 07/25/17 08:20 100 MG
[2017-07-25] MEDS ORDERED: INSDGIPEN SC (12:36)
[2017-07-25] MEDS ORDERED: LYR100 PO (12:36)
[2017-07-25] MEDS ORDERED: ISR5 PO (12:36)
[2017-07-25] MEDS ORDERED: IPRA1AER2 INH (12:36)
[2017-07-25] MEDS ORDERED: NVLGIPEN SC (12:36)
[2017-07-25] MEDS ORDERED: WLLSR150 PO (12:36)
[2017-07-25] MEDS ORDERED: OXGN (12:36)
--- NOTE | 2017-07-25 12:50 | Discharge Instructions ---
Discharge Instructions Date of Service Jul 25, 2017. Admission Reason for Admission: Shortness Of Breath Discharge Discharge Diagnosis / Problem: ACUTE ON CHRONIC DIASTOLIC CHF Discharge Goals Goal(s): Diagnostic testing, Therapeutic intervention Activity Recommendations Activity Level: Assistance Required (ALWAYS WITH ASSISTANCE) Therapies: Physical Therapy, Occupational Therapy FALL PRECAUTIONS PLEASE . Additional Information Patient informed of condition: Yes Advance Directives: No (UNKNOWN) DNR: No (PATIENT IS FULL CODE) Level of Care: Skilled Communicable Disease: No Prognosis: Improving Oxygen at (LPM): 2 LITERS VIA NASAL CANNULA NEEDED, CPAP AT NIGHT Instructions / Follow-Up Instructions / Follow-Up MONITOR VITAL SIGNS, VOLUME STATUS DAILY. MONITOR RENAL FUNCTION NOW THAT PATIENT IS ON LASIX TWICE A WEEK. FALL PRECAUTIONS PLEASE. FOLLOW UP WITH PRIMARY CARE PHYSICIAN DR. DANIELS ON TUESDAY AUGUST 01, 2017 AT 2:45PM. FOLLOW UP WITH PATIENT TRANSPORT OFFICER, NEUROLOGIST, MECHANICAL PLANNER, PSYCHIATRIST IN 2 WEEKS. CPAP AT NIGHT AND WHILE SLEEPING: Delivery Mode BiPap * CPAP Respiratory Treatment Method * Facial BiPAP Mask Expiratory Airway Pressure * 10 cm H2O Leakage * 96 % (0-40) H Oxygen Flow Rate * 2.0 L/min Duration Of Treatment * At Night (EPAP) Patient * 10.0 cm H2O PLEASE REFER TO ACCOMPANYING HOSPITAL DISCHARGE SUMMARY FOR FURTHER DETAILS. Current Hospital Diet Patient's current hospital diet: AHA Diet (Heart Healthy), Diabetes Type 2 Diet , Renal Diet Discharge Diet Recommended Diet: AHA Diet (Heart Healthy), Diabetes Type 2 Diet Fluid Restriction: 2000 ml (8 cups) Procedures Procedures Performed: CT HEAD, CHEST CT, ECHOCARDIOGRAM Pending Studies Studies pending at discharge: yes List of pending studies: PLEASE REFER TO ACCOMPANYING HOSPITAL DISCHARGE SUMMARY. Physician Orders On Transfer Special Precautions: MONITOR VITAL SIGNS, VOLUME STATUS DAILY. MONITOR RENAL FUNCTION NOW THAT PATIENT IS ON LASIX TWICE A WEEK. FALL PRECAUTIONS PLEASE. FOLLOW UP WITH PRIMARY CARE PHYSICIAN DR. DANIELS ON TUESDAY AUGUST 01, 2017 AT 2:45PM. FOLLOW UP WITH PATIENT TRANSPORT OFFICER, NEUROLOGIST, MECHANICAL PLANNER, PSYCHIATRIST IN 2 WEEKS. CPAP AT NIGHT AND WHILE SLEEPING: Delivery Mode BiPap * CPAP Respiratory Treatment Method * Facial BiPAP Mask Expiratory Airway Pressure * 10 cm H2O Leakage * 96 % (0-40) H Oxygen Flow Rate * 2.0 L/min Duration Of Treatment * At Night (EPAP) Patient * 10.0 cm H2O PLEASE REFER TO ACCOMPANYING HOSPITAL DISCHARGE SUMMARY FOR FURTHER DETAILS. Laboratory Results Hemoglobin A1c Test 07/17/17 06:08 Range/Units Estimated Average Glucose 154 mg/dl Hemoglobin A1c 7.0 H 4.5-5.6 % Lipid Panel Test 07/17/17 06:08 Range/Units Triglycerides Level 373 H 0-150 mg/dl Cholesterol Level 133 0-200 mg/dl HDL Cholesterol 33 mg/dl Cholesterol/HDL Ratio 4.0 LDL Cholesterol, Calculated 25 mg/dl Medical Emergencies . Who to Call and When: Medical Emergencies: If at any time you feel your situation is an emergency, please call 911 immediately. . Non-Emergent Contact Non-Emergency issues call your: Primary Care Provider Call Non-Emergent contact if: you have a fever, your pain is not controlled, your pain is worsening, you have any medication questions . . "Provider Documentation" section prepared by Wilber Suarez. . Core Measure Problem Core Measures: None
--- NOTE | 2017-07-25 13:08 | Discharge Summary ---
Discharge Summary Date of Service Jul 25, 2017. Discharge Summary Admission Date: Jul 16, 2017 at 10:39 Discharge Disposition: shelter facility Principal Diagnosis: ACUTE ON LIKELY CHRONIC DIASTOLIC CHF, Resolved Secondary Diagnoses/Problems: Please refer to hospital course below for further details. Procedures: ECHO * -- Conclusions -- * Technically limited study. * Left ventricular systolic function is normal. * Small area of akinesis involving the distal anterior wall and adjacent anteroseptum. * Ejection Fraction = 55-60%. * There is mild concentric left ventricular hypertrophy. * There is mild right ventricular hypertrophy. * Diastolic dysfunction, Grade II (pseudonormalization pattern). * No obvious valvular pathology. CT HEAD WITHOUT CONTRAST (CT) CLINICAL HISTORY: tremors COMPARISON STUDY: No previous studies for comparison. TECHNIQUE: Axial CT of the brain is performed from the vertex to the skull base. IV contrast was not administered for this examination. A dose lowering technique was utilized adhering to the principles of ALARA. CT DOSE: 614.27 mGy.cm FINDINGS: No intra or extra-axial mass lesions are visualized. There is no CT evidence of acute cortical infarction. There is no evidence of midline shift. There is no acute hemorrhage. No calvarial fractures are visualized. There are patchy white matter hypodensities likely on a small vessel basis. There are bilateral basal ganglia lacunar infarcts. There is no evidence of pathologic ventricular dilatation. There is no evidence of acute sinusitis IMPRESSION: 1. No evidence of intracranial mass in this noncontrast study 2. Foci of decreased attenuation within the white matter likely a small vessel basis. Bilateral basal ganglia lacunar infarcts 3. No acute intracranial findings ABDOMINAL ULTRASOUND, RIGHT UPPER QUADRANT HISTORY: elevated ammonia, r/o liver cirrhosis. COMPARISON: None. FINDINGS: Pancreas: The pancreatic tail is obscured by overlying bowel gas. The remaining portions of the pancreas are within normal limits. Liver: The liver is echogenic consistent with fatty change. 21 cm in length. Gallbladder: The gallbladder is surgically absent. CBD: 5 mm. Right kidney: No hydronephrosis. IMPRESSION: 1. Cholecystectomy. 2. Hepatomegaly demonstrating fatty change. (CHEST) THORAX WITHOUT CLINICAL HISTORY: Hypoxia COMPARISON STUDY: Chest x-ray dated 07-17 [address] DOSE: 1151.81 mGy.cm TECHNIQUE: CT of the thorax was performed from the thoracic inlet to the lung bases. Images are reviewed in the axial, sagittal, and coronal planes. IV contrast was not administered for this examination. A dose lowering technique was utilized adhering to the principles of ALARA. FINDINGS: Thyroid: Imaged portions of the thyroid gland are normal in appearance. Thoracic aorta: The thoracic aorta is normal in course and caliber, noting standard 3 vessel arch anatomy. Heart: There are coronary artery calcifications. There are postsurgical changes of a midline sternotomy. Lungs and pleural spaces: There are mild dependent atelectatic changes. There are no areas of pulmonary consolidation to indicate pneumonia. There are bilateral parenchymal opacities which are likely atelectatic. There is a 4 mm solid pulmonary nodule with the lingula. Mediastinum: There is no mediastinal lymphadenopathy. Mi: There is no evidence of pathologic hilar adenopathy given the limitations of a noncontrast study. Axilla: Clear. Upper abdomen: There is hepatic steatosis. The gallbladder surgically absent. Skeletal structures: Multiple old left-sided rib fractures are visualized. IMPRESSION: 1. No evidence of pathologic adenopathy 2. No evidence for pneumonia. Bilateral parenchymal opacities which are felt to be atelectatic 3. 4 mm solid pulmonary nodule within the lingula. A low risk patient, no follow-up is indicated. In a high risk patient, a 12 month follow-up is optional. 4. Hepatic steatosis Please refer to below summary of Fleischner criteria recommendations for follow-up of incidental CT nodules (Toñito Roy, Guidelines for management of small pulmonary nodules detected on CT scans: A statement from the Fleischner Society, Radiology 237: [phone].) SOLID NODULES Solitary nodule size: <6 mm * low risk patients: no follow-up needed * high risk patients: optional CT at 12 months Solitary nodule size: 6-8 mm * low risk patients: follow-up at 6-12 months, then consider further follow-up at 18-24 months * high risk patients: initial follow-up CT at 6-12 months and then at 18-24 months if no change Solitary nodule size: >8 mm * either low or high risk patients - consider follow-up CT at 3 months, and/or CT-PET, and/or biopsy Multiple nodules size: <6 mm * low risk patients: no routine follow-up * high risk patients: optional CT at 12 months Multiple nodules size: 6-8 mm * low risk patients: follow-up at 3-6 months, then consider further follow-up at 18-24 months * high risk patients: follow-up at 3-6 months, then at 18-24 months if no change Multiple nodules size: >8 mm * low risk patients: follow-up at 3-6 months, then consider further follow-up at 18-24 months * high risk patients: follow-up at 3-6 months, then at 18-24 months if no change Note: newly detected indeterminate nodule in persons 35 years of age or older. * low risk patients: minimal or absent history of smoking and/or other known risk factors * high risk patients: history of smoking or of other known risk factors (e.g. first degree relative with lung cancer, or exposure to asbestos, radon, uranium) * if a nodule up to 8 mm is partly solid or is ground glass further follow-up is required after 24 months to exclude possible slow growing adenocarcinoma (VASYL) SUBSOLID NODULES Solitary pure ground-glass nodule * nodule size <6 mm - no CT follow-up required * nodule size >=6 mm - follow-up CT at 6-12 months, then every 2 years until 5 years Solitary part-solid nodule * nodule size <6 mm - no CT follow-up required * nodule size >=6 mm - follow-up CT at 3-6 months. If unchanged, and solid component remains <6 mm, then annual follow-up for 5 years Multiple subsolid nodules * nodule size <6 mm - follow-up CT at 3-6 months, consider further follow-up at 2 and 4 years if stable * nodule size >=6 mm - follow-up CT at 3-6 months, subsequent management based on the most suspicious nodule(s) Consultations: WICK TENDER DR. PEARCE, NEUROLOGIST DR. DOCKERY, EDI SPECIALIST DR. CAMARA, PSYCHIATRIST DR. GARCIA Pending Studies/Follow-Up: MONITOR VITAL SIGNS, VOLUME STATUS DAILY. MONITOR RENAL FUNCTION NOW THAT PATIENT IS ON LASIX TWICE A WEEK. FALL PRECAUTIONS PLEASE. FOLLOW UP WITH PRIMARY CARE PHYSICIAN DR. DANIELS ON TUESDAY AUGUST 01, 2017 AT 2:45PM. FOLLOW UP WITH WICK TENDER, NEUROLOGIST, EDI SPECIALIST, PSYCHIATRIST IN 2 WEEKS. CPAP AT NIGHT AND WHILE SLEEPING: Delivery Mode BiPap * CPAP Respiratory Treatment Method * Facial BiPAP Mask Expiratory Airway Pressure * 10 cm H2O Leakage * 96 % (0-40) H Oxygen Flow Rate * 2.0 L/min Duration Of Treatment * At Night (EPAP) Patient * 10.0 cm H2O PLEASE REFER TO HOSPITAL COURSE BELOW FOR FURTHER DETAILS. Medication Reconciliation New Medications: Furosemide (Lasix) 20 Mg Tab 20 MG PO 2XWK for 30 Days, #8 TAB 2 Refills Bupropion HCl (Bupropion HCl Sr) 150 Mg Tabcr 150 MG PO BID17 for 30 Days Insulin Aspart (Novolog Flexpen) 100 Units/Ml Inj 0 UNITS SC ACHS for 30 Days Insulin Glargine (Lantus Solostar) 100 Unit/Ml Inj 18 UNITS SC BID for 30 Days Ipratropium-Albuterol (Combivent Respimat) 1 Aer Aer 1 PUFFS INH QID PRN for SOB/Wheezing for 30 Days Isosorbide Dinitrate (Isosorbide Dinitrate) 5 Mg Tab 10 MG PO BID for 30 Days Pregabalin (Lyrica) 100 Mg Cap 100 MG PO BID for 7 Days Changed Medications: Home O2 Therapy (Oxygen) Gas 2 LITERS NA DAILY PRN for shortness of breath/hypoxia for 30 Days (Medication details modified) Continued Medications: Allopurinol (Zyloprim) 300 Mg Tab 300 MG PO DAILY, TAB Amlodipine (Norvasc) 10 Mg Tab 10 MG PO DAILY, TAB Aspirin (Aspirin Ec) 81 Mg Tab 81 MG PO DAILY Cholecalciferol (Vitamin D3) 1,000 Unit Tab 2 TAB PO DAILY, TAB Clopidogrel (Plavix) 75 Mg Tab 75 MG PO DAILY, TAB Duloxetine Hcl (Cymbalta) 60 Mg Cap 60 MG PO DAILY, CAP Duloxetine HCl (Cymbalta) 30 Mg Cap 1 CAP PO HS, CAP Fenofibrate (Tricor) 200 Mg Cap 200 MG PO DAILY, CAP Levothyroxine Sodium (Levothyroxine Sodium) 50 Mcg Tab 1 TAB PO DAILYBB, TAB Magnesium Oxide (Mag-Ox) 400 Mg Tab 400 MG PO BID, TAB Metoprolol Succ (Toprol Xl) (Toprol-Xl) 25 Mg Tabcr 1.5 TAB PO HS, TAB Multivitamin (Multivitamin) Tab 1 TAB PO DAILY, TAB Nitroglycerin (Nitrostat) 0.4 Mg Tab 0.4 MG UT PRN, BTL [place]-3 Fatty Acids (Fish Oil 1200 mg) 1 Cap Cap 2 CAP PO BID Pantoprazole (Protonix) 40 Mg Tab 40 MG PO DAILY, TAB Rosuvastatin Calcium (Crestor) 40 Mg Tab 40 MG PO DAILY, TAB Discontinued Medications: Bupropion Hcl (Bupropion Hcl Er) 150 Mg Tab 150 MG PO DAILY for Depression Imipramine Hcl (Tofranil) 25 Mg Tab 25 MG PO QAM, TAB Imipramine Hcl (Tofranil) 25 Mg Tab 2 TAB PO HS, TAB Insulin Aspart (Novolog) 100 Units/Ml Inj 29 UNITS SC AC PLUS ADDITIONAL 2 UNITS FOR EACH 50 ABOVE 150 Insulin Glargine (Lantus Solostar) 100 Unit/Ml Inj 52 UNITS SC AMPM Oxymetazoline Hcl (Afrin 0.05% Nasal [place]) 1 Btl [place] 2 [place] BID PRN for Nasal Congestion, BTL Pregabalin (Lyrica) 150 Mg Cap 150 MG PO BID, CAP Admission Information HPI (per Admitting provider): This is a 72 year old male with a PMH of CAD s/p CABGx2, Hx. of Cardiac Arrest and V-Fib s/p AICD placement, insulin dependent DM2 with complications including peripheral vascular disease s/p R foot transmetatarsal amputation, CKD stage IV, JOSE on nocturnal O2, Hypothyroidism, Mood Disorder with depression - presents with shortness of breath. As per patient, he has been having shortness of breath and "throat pain" for the past three weeks. He has seen his primary care physician; and was given antibiotics at that time. He said he never fully recovered. Last evening, while laying down, he developed worsening shortness of breath. He uses O2 nocturnally due to sleep apnea (did not tolerate CPAP mask); and he turned it up to 3L of O2 with no help. He also developed some chest/throat pain. Denies fevers/chills. Denies nausea/vomiting. Physical Exam (per Admitting): General Appearance: no apparent distress, + obese Head: normocephalic, atraumatic Eyes: normal inspection ENT: hearing grossly normal Respiratory/Chest: chest non-tender, lungs clear, normal breath sounds, no respiratory distress, no accessory muscle use Cardiovascular: regular rate, rhythm, no edema, no gallop, no JVD, no murmur , normal peripheral pulses Abdomen/GI: normal bowel sounds, non tender, soft Back: no muscle spasm Extremities/Musculoskelatal: normal inspection, no calf tenderness, normal capillary refill, no pedal edema, normal range of motion, + pertinent finding ( R transmetatarsal amputation) Neurologic/Psych: no motor/sensory deficits, alert, normal mood/affect Skin: normal color Lymphatic: no adenopathy Hospital Course This is a 72 year old male with a PMH of CAD s/p CABGx2, Hx. of Cardiac Arrest and V-Fib s/p AICD placement, insulin dependent DM2 with complications including peripheral vascular disease s/p R foot transmetatarsal amputation, CKD stage IV, JOSE on nocturnal O2, Hypothyroidism, Mood Disorder with depression - presents with shortness of breath ACUTE ON LIKELY CHRONIC DIASTOLIC CHF, Resolved - ech: * -- Conclusions -- * Technically limited study. * Left ventricular systolic function is normal. * Small area of akinesis involving the distal anterior wall and adjacent anteroseptum. * Ejection Fraction = 55-60%. * There is mild concentric left ventricular hypertrophy. * There is mild right ventricular hypertrophy. * Diastolic dysfunction, Grade II (pseudonormalization pattern). * No obvious valvular pathology. Cardiology Service Dr. Pearce consulted Isordil added Lasix given, will need Lasix 20mg po 2x a week monitor BP and volume status closely ff up with Log Chain Worker Dr. Pearce in 2 weeks - possible component of Acute Bronchitis complete Doxycycline x 7 days TREMORS/SHAKES - multifactorial - patient noted to have severe tremors/shakes to the point that he was falling while ambulating/transfers Neurologist Dr. Dockery and Psychiatrist Dr. Garcia consulted - from multiple psych meds Psych consulted, medication doses decreased Lyrica also tapered down monitor as outpatient - from JOSE/ non adherence of CPAP encouraged CPAP use and patient agreed, has been adherent so far continue to encourage use of CPAP when sleeping - seizure ruled out EEG Negative - Cerebellar Atrophy ruled out cannot perform MRI as patient has pacemaker CT head w/o contrast (+) old infarcts - improving gradually continue PT and OT Fall Precautions ff up with Neurologist Dr. Dockery and outpatient Psychiatrist in 1-2 weeks DM 2 patient is on a high dose of insulin, takes 52 units twice daily of Lantus as well as a sliding scale of Novolog a1c 7.0 Pharmacy Glycemic Control consulted - continue current inpatient Insulin regimen: Lantus 18 units SQ BID * Bolus insulin * NovoLog per scale ACHS or Q6hrs while NPO * Goal Range: Low 110 mg/dL - High 140 mg/dL * Correction Factor: 20 mg/dL/unit * Nutritional / Prandial insulin per carb ratio of 1 unit per 10 grams CHO consumed HTN elevated Isordil added, increased to 10mg BID - BP improving, monitor CKD stage IV - crea within baseline overall - will need to monitor crea closely while on Lasix twice a wee - Nephrology consulted ff up with Dr. Camara in 1-2 weeks Hx. of CAD s/p CABGx2 Hx. of Cardiac arrest and V-Fib s/p AICD cardiac markers negative echo as above on Plavix, Aspirin OBSTRUCTIVE SLEEP APNEA uses 2L O2 nocturnally nocturnal pulse ox as SOB is worse at night -- discussed in detail with patient re: importance of CPAP use and consequences of not using it he agreed to try CPAP and has been adherent since continue to encourage CPAP use Hypothyroidism continue current dose of Synthroid Mood Disorder and Depression Psych consulted for medication adjustments in light of tremors/shaking Tofranil tapered off, Cymbalta and Wellbutrin continued continue ff up with outpatient Psychiatrist ABNORMAL CT SCAN FINDINGS - 4 mm solid pulmonary nodule within the lingula. A low risk patient, no follow-up is indicated. In a high risk patient, a 12 month follow-up is optional. Hepatic steatosis - full CT chest report noted at the Procedure section above - follow up as outpatient DVT ppx subq heparin given FULL CODE Disposition transition to Rehab FOLLOW UP WITH PRIMARY CARE PHYSICIAN DR. DANIELS ON TUESDAY AUGUST 01, 2017 AT 2:45PM. ff up with Log Chain Worker Dr. Pearce, Neurologist Dr. Dockery, Bathhouse Keeper Dr. Camara in 2 weeks. Total time spent on discharge = 50 mins This includes examination of the patient, discharge planning, medication reconciliation, and communication with other providers. Discharge Instructions Discharge Instructions Date of Service Jul 25, 2017. Admission Reason for Admission: Shortness Of Breath Discharge Discharge Diagnosis / Problem: ACUTE ON CHRONIC DIASTOLIC CHF Discharge Goals Goal(s): Diagnostic testing, Therapeutic intervention Activity Recommendations Activity Level: Assistance Required (ALWAYS WITH ASSISTANCE) Therapies: Physical Therapy, Occupational Therapy FALL PRECAUTIONS PLEASE . Additional Information Patient informed of condition: Yes Advance Directives: No (UNKNOWN) DNR: No (PATIENT IS FULL CODE) Level of Care: Skilled Communicable Disease: No Prognosis: Improving Oxygen at (LPM): 2 LITERS VIA NASAL CANNULA NEEDED, CPAP AT NIGHT Instructions / Follow-Up Instructions / Follow-Up MONITOR VITAL SIGNS, VOLUME STATUS DAILY. MONITOR RENAL FUNCTION NOW THAT PATIENT IS ON LASIX TWICE A WEEK. FALL PRECAUTIONS PLEASE. FOLLOW UP WITH PRIMARY CARE PHYSICIAN DR. DANIELS ON TUESDAY AUGUST 01, 2017 AT 2:45PM. FOLLOW UP WITH WICK TENDER, NEUROLOGIST, EDI SPECIALIST, PSYCHIATRIST IN 2 WEEKS. CPAP AT NIGHT AND WHILE SLEEPING: Delivery Mode BiPap * CPAP Respiratory Treatment Method * Facial BiPAP Mask Expiratory Airway Pressure * 10 cm H2O Leakage * 96 % (0-40) H Oxygen Flow Rate * 2.0 L/min Duration Of Treatment * At Night (EPAP) Patient * 10.0 cm H2O PLEASE REFER TO [facility]ANYING [facility]OS[facility]ITAL DISCHARGE SUMMARY FOR FURTHER DETAILS. Current Hospital Diet Patient's current hospital diet: AHA Diet (Heart Healthy), Diabetes Type 2 Diet , Renal Diet Discharge Diet Recommended Diet: AHA Diet (Heart Healthy), Diabetes Type 2 Diet Fluid Restriction: 2000 ml (8 cups) Procedures Procedures Performed: CT HEAD, CHEST CT, ECHOCARDIOGRAM Pending Studies Studies pending at discharge: yes List of pending studies: PLEASE REFER TO [facility]ANYING HOSPITAL DISCHARGE SUMMARY. Physician Orders On Transfer Special Precautions: MONITOR VITAL SIGNS, VOLUME STATUS DAILY. MONITOR RENAL FUNCTION NOW THAT PATIENT IS ON LASIX TWICE A WEEK. FALL PRECAUTIONS PLEASE. FOLLOW UP WITH PRIMARY CARE PHYSICIAN DR. DANIELS ON TUESDAY AUGUST 01, 2017 AT 2:45PM. FOLLOW UP WITH WICK TENDER, NEUROLOGIST, EDI SPECIALIST, PSYCHIATRIST IN 2 WEEKS. CPAP AT NIGHT AND WHILE SLEEPING: Delivery Mode BiPap * CPAP Respiratory Treatment Method * Facial BiPAP Mask Expiratory Airway Pressure * 10 cm H2O Leakage * 96 % (0-40) H Oxygen Flow Rate * 2.0 L/min Duration Of Treatment * At Night (EPAP) Patient * 10.0 cm H2O PLEASE REFER TO [facility]PANYING HOSPITAL DISCHARGE SUMMARY FOR FURTHER DETAILS.
[2017-07-25] MEDS ORDERED: FURO-85 PO (13:15)
[2017-07-25 13:46] VITALS: BP 142/77; PULSE 70; TEMP 36.6; O2SAT 96
== END 2017-07-25 14:35 | DRG 291 ==
LOC: C.EDB 06:27 → C.MED 10:39 → ENRESERV 11:18 → CMPBEDREQ 11:54
PROVIDERS: ADMIT Family Medicine; ATTEND Internal Medicine
DX: I13.0 Hypertensive heart and chronic kidney disease with heart failure and stage 1 through stage 4 chronic kidney disease, or unspecified chronic kidney disease (principal); I50.43 Acute on chronic combined systolic (congestive) and diastolic (congestive) heart failure; N18.4 Chronic kidney disease, stage 4 (severe); G25.1 Drug-induced tremor; Z95.810 Presence of automatic (implantable) cardiac defibrillator; T43.295A Adverse effect of other antidepressants, initial encounter; Z79.4 Long term (current) use of insulin; T43.015A Adverse effect of tricyclic antidepressants, initial encounter; T43.215A Adverse effect of selective serotonin and norepinephrine reuptake inhibitors, initial encounter; Z86.74 Personal history of sudden cardiac arrest; E11.51 Type 2 diabetes mellitus with diabetic peripheral angiopathy without gangrene; Z89.431 Acquired absence of right foot; G47.33 Obstructive sleep apnea (adult) (pediatric); E03.9 Hypothyroidism, unspecified; F32.9 Major depressive disorder, single episode, unspecified; R91.1 Solitary pulmonary nodule; K76.0 Fatty (change of) liver, not elsewhere classified; I25.2 Old myocardial infarction; K21.9 Gastro-esophageal reflux disease without esophagitis; E11.319 Type 2 diabetes mellitus with unspecified diabetic retinopathy without macular edema; I25.10 Atherosclerotic heart disease of native coronary artery without angina pectoris; E11.42 Type 2 diabetes mellitus with diabetic polyneuropathy; Z95.1 Presence of aortocoronary bypass graft; Y92.019 Unspecified place in single-family (private) house as the place of occurrence of the external cause

== ENCOUNTER 2017-11-03 15:02 | Inpatient (IN) | payer OTHER ==
[2017-11-03] VITALS (14 sets, daily range): BP systolic 117–170; BP diastolic 69–97; PULSE 63–82; TEMP 36.4–37.2; O2SAT 90–96; Ht 180.3 cm; Wt 112.7 kg
[~2017-11-03] VITALS: Ht 180.3 cm; Wt 112.7 kg
[~2017-11-03 15:02] MED LIST changes: -ALL300 PO; +ALLO300T2 PO; +AMLO-114 PO; -ASPEC81 PO; +ASPI81TA28 PO; -ATEN50TA8 PO; -AVLX/400 PO; -BUPR-79 PO; +CHOL1000 PO; -CILO50TA9 PO; -CRS10 PO; +CYM/30 PO; +DULO60CA44 PO; +FURO-85 PO; -GABA-113 PO; -HYDC25 PO; -IMP/50 PO; +INSDGIPEN SC; -INSU70IN2 SC; +IPRA1AER2 INH; +ISR5 PO; +LEVO50TA6 PO; -LISI-725 PO; -LRT5 PO; +LYR100 PO; +MAGN400T6 PO; +METO25TA3 PO; -MORP30TA23 PO; +MULT-506 PO; +NVLGIPEN SC; -OMEG10007 PO; +OMEG5CAP PO; +OXGN; +PANT40TA PO; -PROM25TA PO; -RIFA300C34 PO; +ROSU40TA PO; -TEMA15CA4 PO; +WLLSR150 PO; -ZNTT/150 PO
[2017-11-03] MEDS ORDERED: SODIUM CHLORIDE 0.9% 1000ML 1,000 ML IV STA (15:39)
[2017-11-03 16:06] LABS: BASO % 0.8 %; BASO ABS # 0.07 K/uL (0-0.2); EOS % 2.1 %; EOS ABS # 0.18 K/uL (0-0.5); HEMATOCRIT 26.2 % (42-52); HEMOGLOBIN 8.4 g/dL (14.0-18.0); IG# 0.11 K/uL (0.00-0.02); LYMPH ABS # 2.18 K/uL (1.2-3.4); MEAN CELL VOLUME 86.8 fL (80-100); MEAN CORPUSCULAR HEMOGLOBIN 27.8 pg (25-34); MEAN CORPUSCULAR HGB CONC 32.1 g/dl (32-36); MEAN PLATELET VOLUME 10.5 fL (7.4-10.4); MONO % 6.6 %; MONO ABS # 0.55 K/uL (0.11-0.59); NEUT % 63.2 %; NEUT ABS # 5.29 K/uL (1.4-6.5); PLATELET COUNT 246 K/uL (130-400); RED CELL DISTRIBUTION WIDTH CV 14.9 % (11.5-14.5); RED CELL DISTRIBUTION WIDTH SD 46.8 fL (36.4-46.3); WHITE BLOOD COUNT 8.38 K/uL (4.8-10.8)
[2017-11-03 16:22] LABS: INR 1.1 (0.9-1.1)
[2017-11-03] MEDS ORDERED: INSDGIPEN SC (16:24)
[2017-11-03 16:27] LABS: ALBUMIN 2.8 gm/dl (3.4-5.0); ALT/SGPT 21 U/L (12-78); AST/SGOT 14 U/L (15-37); BLOOD UREA NITROGEN 32 mg/dl (7-18); CALCIUM 7.7 mg/dl (8.5-10.1); CARBON DIOXIDE 28 mmol/L (21-32); CREATININE 2.48 mg/dl (0.60-1.40); GLUCOSE 184 mg/dl (70-99); LIPASE 117 U/L (73-393); POTASSIUM 3.7 mmol/L (3.5-5.1); SODIUM 139 mmol/L (136-145)
[2017-11-03 16:32] LABS: ALKALINE PHOSPHATASE 35 U/L (45-117)
[2017-11-03] MEDS ORDERED: ONDANSETRON INJ 2 MG/ML 2 ML VIAL IV PRN (17:15)
[2017-11-03] MEDS ORDERED: FURO-85 PO (17:15)
[2017-11-03] MEDS ORDERED: ACETAMINOPHEN 325 MG TAB PO PRN (17:15)
[2017-11-03] MEDS ORDERED: GLUCAGON FOR INJ 1 MG VIAL SQ PRN (17:30)
[2017-11-03] MEDS ORDERED: DEXTROSE 50% 50 ML SYR IV PRN (17:30)
[2017-11-03] MEDS ORDERED: GLUCOSE 10 TABS/TUBE PO PRN (17:30)
[2017-11-03] MEDS ORDERED: GLUCOSE 40% GEL 15 GM TUBE PO PRN (17:30)
[2017-11-03 18:02] LABS: HEMATOCRIT 24.8 % (42-52); HEMOGLOBIN 8.2 g/dL (14.0-18.0)
--- NOTE | 2017-11-03 18:26 | DIAGNOSTIC IMAGING REPORT ---
ABD/PELVIS NO IV OR ORAL CONT CLINICAL HISTORY: 72 years-old Male presenting with LLQ abdominal pain. TECHNIQUE: Multidetector CT of the abdomen and pelvis was performed without the use of intravenous contrast. IV contrast: None. A dose lowering technique was used consistent with the principles of ALARA (as low as reasonably achievable). COMPARISON: Ultrasound from 07/20/2017. CT DOSE (mGy.cm): The estimated cumulative dose is 1165.12 mGy.cm. FINDINGS: Customer Service Engineer topogram: Single lead of an implanted cardiac for bladder to the right ventricular apex partially visualized. Median sternotomy wires. Cardiomegaly. Cholecystectomy clips. Penile implant. Lung bases: Bandlike opacities in the right lower lobe likely atelectasis or scarring. Multichamber enlargement of the heart. Lead to the right ventricle. Sternal surgical clip noted anteriorly. Intraventricular blood pool is less dense than adjacent myocardium consistent with anemia. Sternotomy wires. Coronary artery calcification. No pericardial or pleural effusion. Liver: Normal morphology. Density consistent with hepatic steatosis. Subcentimeter fatty lesion at the right hepatic dome. Biliary: No intrahepatic or extrahepatic biliary ductal dilatation. Gallbladder surgically absent. Pancreas: Mild parenchymal atrophy. Spleen: Normal noncontrast appearance. Adrenal glands: Normal noncontrast appearance. Kidneys and ureters: Vague hypodensity in the left lower pole of the kidney posteriorly, possibly cysts but indeterminate. Punctate calcification at the upper pole the left kidney possibly tiny calculus (series 3 image 206). No hydronephrosis. Normal ureters. Nonspecific perinephric fat stranding. Bladder: Normal. Pelvic organs: Prostate enlargement likely secondary to benign prostatic hyperplasia. Penile implants. Bowel: Diverticulosis of the proximal sigmoid colon with mild wall thickening likely indicating circular muscular hyperplasia. Diverticulosis of the descending colon. Minimal pericolonic fat infiltration suggested along the descending colon. The appendix is normal. No bowel obstruction. Duodenal diverticulum at the level of the pancreatic head. No associated inflammatory change. Peritoneal cavity: No free fluid or intraperitoneal gas. Lymph nodes: No gross lymphadenopathy allowing for noncontrast technique. Vasculature: Atherosclerosis of the normal caliber abdominal aorta. Abdominal wall: Small fat-containing umbilical hernia. Musculoskeletal: Degenerative changes of the spine. Old rib fracture of the left posterior eighth rib. Mild osteopenia. IMPRESSION: 1. Diverticulosis of the descending and sigmoid colon. Minimal pericolonic fat infiltration along the descending colon suggests early acute on, located diverticulitis. No CT evidence of perforation or abscess. 2. Chronic diverticular disease of the sigmoid colon. 3. Mild osteopenia suggested. 4. Subcentimeter fatty lesion at the right hepatic dome may represent an angiomyolipoma or lipoma. Electronically signed by: Rambo Ambrosio M.D. 11/03/2017 6:25 PM Dictated Date/Time: 11/03/2017 6:11 PM
[2017-11-03] MEDS ORDERED: PHARMACY GLYCEMIC MGMT CONSULT PRN (19:15)
--- NOTE | 2017-11-03 20:06 | History and Physical ---
History & Physical Date & Time of Service: Nov 03, 2017 ~ 16:30 Chief Complaint: Rectal Bleeding, Nausea Primary Care Physician: Chavez Cesar M.D. History of Present Illness 72 year old male who presents to the ED with rectal bleeding and nausea. Patient reports the rectal bleeding started yesterday morning. He reports multiple episodes of bright red bleeding per rectum. There have been clots at times too. Blood has continued to ooze since yesterday morning. He denies any pain. Today he had nausea but denies vomiting. He reports feeling lightheaded and dizzy but no syncopal events. He has chronic exertional shortness of breath which is unchanged from baseline. No chest pain. He denies fever and chills. He has chronic urinary hesitancy. In the ED, patient's hgb is found to be 8.4. Vitals are stable. CT ordered by myself shows an early descending colon diverticulitis. He was given IVF in the ED. Past Medical/Surgical History Medical Problems: (1) CAD (coronary artery disease) Permanent Comment: 1985 - MD s/p PTCA 1988 - MD 2006 - CABG x 2 Status: Chronic (2) Cardiac arrest Status: Chronic (3) Carotid stenosis Status: Chronic (4) CKD (chronic kidney disease), stage IV Status: Chronic (5) Diabetic nephropathy Status: Chronic (6) Diastolic CHF Status: Chronic (7) DM type 2 (diabetes mellitus, type 2) Status: Chronic (8) Dyslipidemia Status: Chronic (9) GERD (gastroesophageal reflux disease) Status: Chronic (10) HTN (hypertension) Status: Chronic (11) Hypothyroidism Status: Chronic (12) PVD (peripheral vascular disease) Status: Chronic Surgical Problems: (1) AICD (automatic cardioverter/defibrillator) present Status: Chronic (2) History of inguinal hernia repair Status: Chronic (3) Hx of CABG Status: Resolved (4) Hx of cholecystectomy Status: Chronic (5) S/P femoral-popliteal bypass surgery Status: Chronic Family History FH: CAD (coronary artery disease) FATHER Stroke MOTHER Social History Smoking Status: Never Smoker Alcohol Use: none Immunizations History of Influenza Vaccine: Yes Influenza Vaccine Date: Jun 19, 2017 History of Tetanus Vaccine?: Yes Tetanus Immunization Date: Mar 13, 2008 History of Pneumococcal: Yes Pneumococcal Date: Dec 29, 2014 History of Hepatitis B Vaccine: No Multi-Drug Resistant Organisms History of MDRO: No Allergies Coded Allergies: Moxifloxacin (Unverified Adverse Reaction, Severe, "DEPLETED POTASSIUM AND MAGNESIUM. CARDIAC ARREST" PT , 11/03/17) Home Medications Scheduled Allopurinol (Zyloprim), 300 MG PO DAILY Amlodipine (Norvasc), 10 MG PO DAILY Aspirin (Aspirin Ec), 81 MG PO DAILY Bupropion HCl (Bupropion HCl Sr), 150 MG PO BID17 Cholecalciferol (Vitamin D3), 2 TAB PO DAILY Clopidogrel (Plavix), 75 MG PO DAILY Duloxetine HCl (Cymbalta), 1 CAP PO HS Duloxetine Hcl (Cymbalta), 60 MG PO DAILY Fenofibrate (Tricor), 200 MG PO DAILY Furosemide (Lasix), 20 MG PO Q2D Insulin Aspart (Novolog Flexpen), 0 UNITS SC ACHS Insulin Glargine (Lantus Solostar), 50 UNITS SC BID Isosorbide Dinitrate (Isosorbide Dinitrate), 10 MG PO BID Levothyroxine Sodium (Levothyroxine Sodium), 1 TAB PO DAILYBB Magnesium Oxide (Mag-Ox), 400 MG PO BID Metoprolol Succ (Toprol Xl) (Toprol-Xl), 1.5 TAB PO HS Multivitamin (Multivitamin), 1 TAB PO DAILY Nitroglycerin (Nitrostat), 0.4 MG UT PRN [place]-3 Fatty Acids (Fish Oil 1200 mg), 2 CAP PO BID Pantoprazole (Protonix), 40 MG PO DAILY Pregabalin (Lyrica), 100 MG PO BID Rosuvastatin Calcium (Crestor), 40 MG PO DAILY Scheduled PRN Home O2 Therapy (Oxygen), 2 LITERS NA DAILY PRN for shortness of breath/hypoxia Ipratropium-Albuterol (Combivent Respimat), 1 PUFFS INH QID PRN for SOB/Wheezing Review of Systems ROS per HPI, all other systems reviewed and negative Physical Exam Vital Signs Date Time Temp Pulse Resp B/P (MAP) Pulse Ox O2 Delivery O2 Flow Rate FiO2 11/03/17 17:26 68 18 114/68 92 Room Air 11/03/17 16:16 66 20 178/62 91 Room Air 11/03/17 15:48 95 Room Air 2/2/18 15:18 61 11/03/17 15:10 36.4 62 20 148/67 96 Room Air General Appearance: WD/WN, no apparent distress Head: normocephalic, atraumatic Eyes: normal inspection, EOMI, sclerae normal ENT: hearing grossly normal, + pertinent finding (mucous membranes moist) Neck: supple, no JVD, trachea midline Respiratory/Chest: lungs clear, normal breath sounds, no respiratory distress Cardiovascular: regular rate, rhythm, no edema, normal peripheral pulses Abdomen/GI: normal bowel sounds, soft, no organomegaly, + tenderness (mild, LLQ ) Extremities/Musculoskelatal: normal inspection, no calf tenderness, normal capillary refill, + pertinent finding (s/p toe amputations on right foot) Neurologic/Psych: no motor/sensory deficits, alert, normal mood/affect, oriented x 3 Skin: normal color, warm/dry, + pertinent finding (open callous noted to left gret toe - no drainage or surrounding erythema) Diagnostics Laboratory Results Results Past 24 Hours Test 11/03/17 15:45 11/03/17 15:46 11/03/17 16:50 11/03/17 17:50 Range/Units White Blood Count 8.38 4.8-10.8 K/uL Red Blood Count 3.02 4.7-6.1 M/uL Hemoglobin 8.4 8.2 14.0-18.0 g/dL Hematocrit 26.2 24.8 42-52 % Mean Corpuscular Volume 86.8 80-100 fL Mean Corpuscular Hemoglobin 27.8 25-34 pg Mean Corpuscular Hemoglobin Concent 32.1 32-36 g/dl Platelet Count 246 130-400 K/uL Mean Platelet Volume 10.5 7.4-10.4 fL Neutrophils (%) (Auto) 63.2 % Lymphocytes (%) (Auto) 26.0 % Monocytes (%) (Auto) 6.6 % Eosinophils (%) (Auto) 2.1 % Basophils (%) (Auto) 0.8 % Neutrophils # (Auto) 5.29 1.4-6.5 K/uL Lymphocytes # (Auto) 2.18 1.2-3.4 K/uL Monocytes # (Auto) 0.55 0.11-0.59 K/uL Eosinophils # (Auto) 0.18 0-0.5 K/uL Basophils # (Auto) 0.07 0-0.2 K/uL RDW Standard Deviation 46.8 36.4-46.3 fL RDW Coefficient of Variation 14.9 11.5-14.5 % Immature Granulocyte % (Auto) 1.3 % Immature Granulocyte # (Auto) 0.11 0.00-0.02 K/uL Anisocytosis PRESENT Prothrombin Time 11.4 9.0-12.0 SECONDS Prothromb Time International Ratio 1.1 0.9-1.1 Activated Partial Thromboplast Time 27.0 21.0-31.0 SECONDS Partial Thromboplastin Ratio 1.0 Sodium Level 139 136-145 mmol/L Potassium Level 3.7 3.5-5.1 mmol/L Chloride Level 105 98-107 mmol/L Carbon Dioxide Level 28 21-32 mmol/L Anion Gap 6.0 3-11 mmol/L Blood Urea Nitrogen 32 7-18 mg/dl Creatinine 2.48 0.60-1.40 mg/dl Est Creatinine Clear Calc Drug Dose 34.5 ml/min Estimated GFR () 28.9 Estimated GFR (Non- 25.0 BUN/Creatinine Ratio 13.0 10-20 Random Glucose 184 70-99 mg/dl Calcium Level 7.7 8.5-10.1 mg/dl Total Bilirubin 0.4 0.2-1 mg/dl Direct Bilirubin 0.2 0-0.2 mg/dl Aspartate Amino Transf (AST/SGOT) 14 15-37 U/L Alanine Aminotransferase (ALT/SGPT) 21 12-78 U/L Alkaline Phosphatase 35 45-117 U/L Troponin I < 0.015 0-0.045 ng/ml Total Protein 6.0 6.4-8.2 gm/dl Albumin 2.8 3.4-5.0 gm/dl Lipase 117 73-393 U/L Urine Color YELLOW Urine Appearance CLOUDY CLEAR Urine pH 6.5 4.5-7.5 Urine Specific [place] 1.021 1.000-1.030 Urine Protein 2+ NEG Urine Glucose (UA) 2+ NEG Urine Ketones NEG NEG Urine Occult Blood NEG NEG Urine Nitrite NEG NEG Urine Bilirubin NEG NEG Urine Urobilinogen NEG NEG Urine Leukocyte Esterase NEG NEG Urine WBC (Auto) 5-10 0-5 /hpf Urine RBC (Auto) 0-4 0-4 /hpf Urine Hyaline Casts (Auto) 1-5 0-5 /lpf Urine Epithelial Cells (Auto) >30 0-5 /lpf Urine Bacteria (Auto) NEG NEG Diagnostic Radiology CT ABD/PELVIS IMPRESSION: 1. Diverticulosis of the descending and sigmoid colon. Minimal pericolonic fat infiltration along the descending colon suggests early acute on, located diverticulitis. No CT evidence of perforation or abscess. 2. Chronic diverticular disease of the sigmoid colon. 3. Mild osteopenia suggested. 4. Subcentimeter fatty lesion at the right hepatic dome may represent an angiomyolipoma or lipoma. Impression Assessment and Plan ACUTE BLOOD LOSS ANEMIA LOWER GI BLEED DIVERTICULITIS - admit to tele - patient presenting with persistent bright red bleeding per rectum that started yesterday morning; in the ED, found to have hgb 8.4, vitals stable - given significant cardiac history and that patient continues to bleed, will transfuse with 2 units PRBC - serial H/Hs - suspect diverticular bleed; patient also on dual antiplatelet therapy due to CAD (ASA/Plavix which will be held) - c-scope 10/2011 - diverticulosis throughout entire colon - CT scan showing early diverticulitis in the descending colon - will start Unasyn - check stool studies - GI consult, Dr. Reyes notified CAD HX CARDIAC ARREST S/P AICD - stable, no reports of chest pain - holding ASA and Plavix as above - no recent cardiac interventions - continue beta buster, nitrate, and statin HTN - BP controlled, continue amlodipine, isosorbide, and metoprolol DIASTOLIC CHF - appears euvolemic - will hold Lasix due to volume depletion from GI bleed DM - hgb a1c 7.0 07/2017 - Lantus + SSI HYPOTHYROIDISM - continue levothyroxine DVT PROPHYLAXIS - SCDs due to GI bleed DISPO - In my clinical judgment this beneficiary meets acute admission criteria, established by [facility], that includes being hospitalized through two midnights. ADDENDUM: This is a 72 year old male with a PMH of CAD s/p CABGx2, Hx. of Cardiac Arrest and V-Fib s/p AICD placement, insulin dependent DM2 with complications including peripheral vascular disease s/p R foot transmetatarsal amputation, CKD stage IV, JOSE on nocturnal O2, Hypothyroidism, Mood Disorder with depression - presents with bright red blood per rectum. Multiple episodes of liquid, bright red blood. Denies feeling ill otherwise. Hgb on admission = 8.4. Plan: transfuse two units pRBCs H/H q6 GI consultation will start Unasyn for mild acute diverticulitis hold aspirin, Plavix, fish oils VTE Prophylaxis VTE Risk Assessment Done? Y/N: Yes Risk Level: Moderate
--- NOTE | 2017-11-03 20:20 | EMERGENCY ROOM VISIT NOTE ---
History Report prepared by Mendel: Tobi Alcantara Under the Supervision of: Dr. Eduardo Skinner M.D. First contact with patient: 15:05 Chief Complaint: RECTAL BLEEDING Stated Complaint: RECTAL BLEEDING, WEAK, NAUSEA History of Present Illness The patient is a 72 year old male who presents to the Emergency Room with complaints of rectal bleeding that began yesterday. He has a past medical history of diabetes, MT's, and a CABG with a defibrillator in place. This has never happened to the patient before. Yesterday when the patient had a bowel movement, he noticed that he passed a moderate amount of bright red blood with some clots. This then began to happen intermittently "whenever it decided to happen." He is currently feeling dizzy and lightheaded but states that it is better when he lies down. The patient's notes that he seems to be paler than usual. Pt denies LOC, headache, fevers, chills, diaphoresis, visual changes , neck pain, chest pain, breathing difficulties, nausea, vomiting, abdominal pain, back pain, melena, urinary symptoms, numbness, weakness, lymphadenopathy, rash, or other complaints. He is currently taking a baby Aspirin and Plavix. Source of History: patient Onset: yesterday Position: other (Rectum) Symptom Intensity: moderate Quality: other (Bleeding) Timing: intermittent Note: He states that he feels dizzy and lightheaded. Review of Systems See HPI for pertinent positives and negatives. A total of ten systems were reviewed and were otherwise negative. Past Medical & Surgical Medical Problems: (1) CAD (coronary artery disease) (2) Cardiac arrest (3) Carotid stenosis (4) CKD (chronic kidney disease), stage IV (5) Diabetic nephropathy (6) Diastolic CHF (7) DM type 2 (diabetes mellitus, type 2) (8) Dyslipidemia (9) GERD (gastroesophageal reflux disease) (10) HTN (hypertension) (11) Hypothyroidism (12) PVD (peripheral vascular disease) Surgical Problems: (1) AICD (automatic cardioverter/defibrillator) present (2) History of inguinal hernia repair (3) Hx of CABG (4) Hx of cholecystectomy (5) S/P femoral-popliteal bypass surgery Family History Omitted secondary to the patient's age. Social History Smoking Status: Current Every Day Smoker Drug Use: none Marital Status: Housing Status: lives with significant other Current/Historical Medications Scheduled Allopurinol (Zyloprim), 300 MG PO DAILY Amlodipine (Norvasc), 10 MG PO DAILY Aspirin (Aspirin Ec), 81 MG PO DAILY Bupropion HCl (Bupropion HCl Sr), 150 MG PO BID17 Cholecalciferol (Vitamin D3), 2 TAB PO DAILY Clopidogrel (Plavix), 75 MG PO DAILY Duloxetine HCl (Cymbalta), 1 CAP PO HS Duloxetine Hcl (Cymbalta), 60 MG PO DAILY Fenofibrate (Tricor), 200 MG PO DAILY Furosemide (Lasix), 20 MG PO Q2D Insulin Aspart (Novolog Flexpen), 0 UNITS SC ACHS Insulin Glargine (Lantus Solostar), 50 UNITS SC BID Isosorbide Dinitrate (Isosorbide Dinitrate), 10 MG PO BID Levothyroxine Sodium (Levothyroxine Sodium), 1 TAB PO DAILYBB Magnesium Oxide (Mag-Ox), 400 MG PO BID Metoprolol Succ (Toprol Xl) (Toprol-Xl), 1.5 TAB PO HS Multivitamin (Multivitamin), 1 TAB PO DAILY Nitroglycerin (Nitrostat), 0.4 MG UT PRN [place]-3 Fatty Acids (Fish Oil 1200 mg), 2 CAP PO BID Pantoprazole (Protonix), 40 MG PO DAILY Pregabalin (Lyrica), 100 MG PO BID Rosuvastatin Calcium (Crestor), 40 MG PO DAILY Scheduled PRN Home O2 Therapy (Oxygen), 2 LITERS NA DAILY PRN for shortness of breath/hypoxia Ipratropium-Albuterol (Combivent Respimat), 1 PUFFS INH QID PRN for SOB/Wheezing Allergies Coded Allergies: Moxifloxacin (Unverified Adverse Reaction, Severe, "DEPLETED POTASSIUM AND MAGNESIUM. CARDIAC ARREST" PT , 11/03/17) Physical Exam Vital Signs Date Time Temp Pulse Resp B/P (MAP) Pulse Ox O2 Delivery O2 Flow Rate FiO2 11/03/17 16:16 66 20 178/62 91 Room Air 11/03/17 15:48 95 Room Air 11/03/17 15:18 61 11/03/17 15:10 36.4 62 20 148/67 96 Room Air Physical Exam GENERAL: Awake, alert, very pale appearing, in no distress HENT: Normocephalic, atraumatic. Oropharynx unremarkable. EYES: Pale conjunctiva. Sclera non-icteric. NECK: Supple. No nuchal rigidity. FROM. No JVD. RESPIRATORY: Clear to auscultation. CARDIAC: Regular rate, normal rhythm. Extremities warm and well perfused. Pulses equal. ABDOMEN: Soft, non-distended. No tenderness to palpation. No rebound or guarding. No masses. RECTAL: Gross blood present. Minimal hemorrhoidal disease. Hemoccult positive. MUSCULOSKELETAL: Chest examination reveals no tenderness. The back is symmetrical on inspection without obvious abnormality. There is no CVA tenderness to palpation. No joint edema. LOWER EXTREMITIES: Calves are equal size bilaterally and non-tender. No edema. No discoloration. NEURO: Normal sensorium. No sensory or motor deficits noted. SKIN: No rash or jaundice noted. Medical Decision & Procedures Laboratory Results 11/03/17 15:45 Red Blood Count 3.02, Mean Corpuscular Volume 86.8, Mean Corpuscular Hemoglobin 27.8, Mean Corpuscular Hemoglobin Concent 32.1, Mean Platelet Volume 10.5, Neutrophils (%) (Auto) 63.2, Lymphocytes (%) (Auto) 26.0, Monocytes (%) (Auto) 6.6, Eosinophils (%) (Auto) 2.1, Basophils (%) (Auto) 0.8, Neutrophils # (Auto) 5.29, Lymphocytes # (Auto) 2.18, Monocytes # (Auto) 0.55, Eosinophils # (Auto) 0.18, Basophils # (Auto) 0.07 11/03/17 15:46 Test 11/03/17 15:45 11/03/17 15:46 11/03/17 16:50 White Blood Count 8.38 K/uL (4.8-10.8) Red Blood Count 3.02 M/uL (4.7-6.1) Hemoglobin 8.4 g/dL (14.0-18.0) Hematocrit 26.2 % (42-52) Mean Corpuscular Volume 86.8 fL (80-100) Mean Corpuscular Hemoglobin 27.8 pg (25-34) Mean Corpuscular Hemoglobin Concent 32.1 g/dl (32-36) Platelet Count 246 K/uL (130-400) Mean Platelet Volume 10.5 fL (7.4-10.4) Neutrophils (%) (Auto) 63.2 % Lymphocytes (%) (Auto) 26.0 % Monocytes (%) (Auto) 6.6 % Eosinophils (%) (Auto) 2.1 % Basophils (%) (Auto) 0.8 % Neutrophils # (Auto) 5.29 K/uL (1.4-6.5) Lymphocytes # (Auto) 2.18 K/uL (1.2-3.4) Monocytes # (Auto) 0.55 K/uL (0.11-0.59) Eosinophils # (Auto) 0.18 K/uL (0-0.5) Basophils # (Auto) 0.07 K/uL (0-0.2) RDW Standard Deviation 46.8 fL (36.4-46.3) RDW Coefficient of Variation 14.9 % (11.5-14.5) Immature Granulocyte % (Auto) 1.3 % Immature Granulocyte # (Auto) 0.11 K/uL (0.00-0.02) Anisocytosis PRESENT Prothrombin Time 11.4 SECONDS (9.0-12.0) Prothromb Time International Ratio 1.1 (0.9-1.1) Activated Partial Thromboplast Time 27.0 SECONDS (21.0-31.0) Partial Thromboplastin Ratio 1.0 Anion Gap 6.0 mmol/L (3-11) Est Creatinine Clear Calc Drug Dose 34.5 ml/min Estimated GFR () 28.9 Estimated GFR (Non- 25.0 BUN/Creatinine Ratio 13.0 (10-20) Calcium Level 7.7 mg/dl (8.5-10.1) Total Bilirubin 0.4 mg/dl (0.2-1) Direct Bilirubin 0.2 mg/dl (0-0.2) Aspartate Amino Transf (AST/SGOT) 14 U/L (15-37) Alanine Aminotransferase (ALT/SGPT) 21 U/L (12-78) Alkaline Phosphatase 35 U/L (45-117) Troponin I < 0.015 ng/ml (0-0.045) Total Protein 6.0 gm/dl (6.4-8.2) Albumin 2.8 gm/dl (3.4-5.0) Lipase 117 U/L (73-393) Urine Color YELLOW Urine Appearance CLOUDY (CLEAR) Urine pH 6.5 (4.5-7.5) Urine Specific [place] 1.021 (1.000-1.030) Urine Protein 2+ (NEG) Urine Glucose (UA) 2+ (NEG) Urine Ketones NEG (NEG) Urine Occult Blood NEG (NEG) Urine Nitrite NEG (NEG) Urine Bilirubin NEG (NEG) Urine Urobilinogen NEG (NEG) Urine Leukocyte Esterase NEG (NEG) Urine WBC (Auto) 5-10 /hpf (0-5) Urine RBC (Auto) 0-4 /hpf (0-4) Urine Hyaline Casts (Auto) 1-5 /lpf (0-5) Urine Epithelial Cells (Auto) >30 /lpf (0-5) Urine Bacteria (Auto) NEG (NEG) Laboratory results reviewed by me Medications Administered Medications (Trade) Dose Ordered Sig/Lashae Route Start Time Stop Time Status Last Admin Dose Admin Sodium Chloride 1,000 ml @ 125 mls/hr Q8H STAT IV 11/03/17 15:39 11/03/17 19:41 DC 11/03/17 15:58 125 MLS/HR ECG Indication: other (Bleeding) Rate (beats per minute): 60 Rhythm: sinus rhythm Findings: 1st degree AV block, other (Lateral/nonspecific t-wave change) Comparison ECG Date: 18 Jul 2017 Change: no significant change Change: Patient's electrocardiogram was interpreted by me. ED Course 1505: The patient was evaluated in room B3. A complete history and physical exam was performed. 1539: Ordered Sodium Chloride 1000 ml @ 125 mls/hr IV 1634: Upon reexamination, the patient was resting. I discussed the test results and treatment plan with him. I [facility] the patient[facility] The patient will be evaluated for further management. 1636: I reevaluated the patient at this time, he is doing well. He consented for a blood transfusion. Medical Decision Prior records/ancillary studies reviewed. Triage Nursing notes reviewed and agree them. Additional history obtained from the family. The patient's history was concerning for possible gastrointestinal bleeding. Differential diagnosis: Etiologies such as diverticulosis, AVM, coagulopathy, colitis, inflammatory bowel disease, malignancy,Yesika-Ley tear, esophagitis, peptic ulcer disease , variceal bleed, gastritis, epistaxis, fissure, hemorrhoids, as well as others were entertained. Physical exam: As above. The patient was very pale. ER treatment provided: Saline hydration. Packed red blood cell transfusion On reassessment the patient felt better. Diagnostics interpreted by me: ECG: As above. The labs revealed a significant anemia on CBC. Chemistry panel revealed an elevated creatinine but this was baseline. Imaging studies: Deferred Consultation: A consultation was placed with the hospitalist. The case was discussed and diagnostics were reviewed. The patient was evaluated in the ER for further treatment. Medication Reconcilliation Current Medication List: was personally reviewed by me Blood Pressure Screening Patient's blood pressure: Elevated blood pressure Referred to the hospitalist Impression Primary Impression: GI bleed Critical Care I have personally spent greater than 30 minutes of critical care time in the direct management of this patient. This includes bedside care, interpretation of diagnostic studies, and testing, discussion with consultants, patient, and family members, and other required patient management activities. This 30 minutes is in excess of all separately billable procedures. Scribe Attestation The scribe's documentation has been prepared under my direction and personally reviewed by me in its entirety. I confirm that the note above accurately reflects all work, treatment, procedures, and medical decision making performed by me. Departure Information Dispostion Being Evaluated By Hospitalist Prescriptions Furosemide (LASIX) 20 Mg Tab 20 MG PO Q2D for 30 Days, #8 TAB 2 Refills Prov: Mary Mahan .LEIGH 11/03/17 Referrals Chavez Cesar M.D. (PCP) Patient Instructions [facility]
[2017-11-03] MEDS: DULOXETINE (CYMBALTA) 30 MG CAP PO SCH (20:29)
[2017-11-03] MEDS: MAGNESIUM OXIDE 400 MG TAB PO SCH (20:30)
[2017-11-03] MEDS: METOPROLOL SUCC 25MG EXT REL TAB PO SCH (20:30)
[2017-11-03] MEDS: AMPICILLIN/SULBACTAM SOD INJ 1,500 MG in SODIUM CHLORIDE 0.9% 100ML 100 ML IV SCH (20:33)
[2017-11-03] MEDS: PREGABALIN 100 MG CAP PO SCH (20:33)
[2017-11-03] MEDS: INSULIN GLARGINE SOLOSTAR 100 UNITS/ML 3 ML PEN SC SCH (20:37)
[2017-11-03] MEDS: INSULIN ASPART 100 UNITS/ML 3 ML PEN SC SCH (20:37)
[2017-11-03] MEDS ORDERED: SODIUM CHLORIDE 0.9% 1000ML 1,000 ML IV SCH (21:00)
[2017-11-04] VITALS (9 sets, daily range): BP systolic 128–167; BP diastolic 60–86; PULSE 62–79; TEMP 36.4–37.4; O2SAT 91–96
[2017-11-04 02:15] LABS: HEMATOCRIT 27.3 % (42-52); HEMOGLOBIN 9.1 g/dL (14.0-18.0)
[2017-11-04] MEDS: AMPICILLIN/SULBACTAM SOD INJ 1,500 MG in SODIUM CHLORIDE 0.9% 100ML 100 ML IV SCH ×4 (02:41→21:12)
[2017-11-04 06:03] LABS: CALCIUM 7.4 mg/dl (8.5-10.1); CREATININE 2.1 mg/dl (0.60-1.40); POTASSIUM 3.6 mmol/L (3.5-5.1)
[2017-11-04] MEDS: LEVOTHYROXINE 50 MCG TAB PO SCH (06:24)
[2017-11-04] MEDS: INSULIN ASPART 100 UNITS/ML 3 ML PEN SC SCH ×4 (07:00→21:16)
[2017-11-04 07:50] LABS: HEMATOCRIT 27.6 % (42-52); HEMOGLOBIN 9.1 g/dL (14.0-18.0); MEAN CELL VOLUME 85.7 fL (80-100); MEAN CORPUSCULAR HEMOGLOBIN 28.3 pg (25-34); MEAN PLATELET VOLUME 11.1 fL (7.4-10.4); PLATELET COUNT 198 K/uL (130-400); RED CELL DISTRIBUTION WIDTH CV 15.4 % (11.5-14.5); RED CELL DISTRIBUTION WIDTH SD 48.1 fL (36.4-46.3); WHITE BLOOD COUNT 7.02 K/uL (4.8-10.8)
[2017-11-04] MEDS: MULTIVITAMIN TAB PO SCH (08:29)
[2017-11-04] MEDS: ALLOPURINOL 300 MG TAB PO SCH (08:30)
[2017-11-04] MEDS: BuPROPion SR 150 MG TABCR PO SCH ×2 (08:30→17:11)
[2017-11-04] MEDS: ISOSORBIDE DINITRATE 10 MG TAB PO SCH ×2 (08:30→12:28)
[2017-11-04] MEDS: PANTOprazole SOD 40 MG TAB PO SCH (08:30)
[2017-11-04] MEDS: AMLODIPINE BESYLATE 5 MG TAB PO SCH (08:30)
[2017-11-04] MEDS: MAGNESIUM OXIDE 400 MG TAB PO SCH ×2 (08:31→21:12)
[2017-11-04] MEDS: CHOLECALCIFEROL 1000 INTER.UNIT TAB PO SCH (08:31)
[2017-11-04] MEDS: DULOXETINE HCL 60 MG CAP PO SCH (08:31)
[2017-11-04] MEDS: PREGABALIN 100 MG CAP PO SCH ×2 (08:37→21:13)
[2017-11-04] MEDS: ROSUVASTATIN CALCIUM 20 MG TAB PO SCH (09:02)
--- NOTE | 2017-11-04 10:26 | Gastrointestinal Consultation ---
Gastrointestinal Consultation Date of Consultation: Nov 04, 2017 Attending Physician: Dr. Pardo Consulting Physician: Dr. Reyes Reason for Consultation: lower GI bleed History of Present Illness Patient is a 72 year old male with multiple medical problems including CAD s/p CABG, PVD s/p fem-pop bypass, DM, CKD, GERD, and HTN who presented to the ER last evening with complaints of rectal bleeding which started earlier that day. He denies any associated abdominal pain. He did initially have some nausea. No vomiting. He denies any prior history of GI bleeding. He did have a colonoscopy in the past but it was "years and years ago" per patient. Feels good this AM. Had a small amount of stool around 4AM with some blood, but much less than prior per patient. No abd pain. Hungry. Labs on arrival are significant for hgb of 8.4 (last hgb noted was 12.2 in July 2017). He was given 2 units of blood given his cardiac history. Hgb this AM was 9.1. CT scan showed significant left sided diverticulosis as well as ?changes of early diverticulitis in the descending colon. He was started on antibiotics. Past Medical/Surgical History Medical Problems: (1) GI bleed Status: Acute (2) Hypertension Status: Acute (3) Hypoxia Status: Acute (4) SOB (shortness of breath) Status: Acute Past Medical History: as noted in HPI Past Surgical History: AICD, hernia repair, CABG, cholecystectomy, fem-pop bypass Family History FH: CAD (coronary artery disease) FATHER Stroke MOTHER +CAD; no family history of colon cancer Social History Smoking Status: Current Every Day Smoker Drug Use: none Marital Status: Housing Status: lives with significant other Allergies Coded Allergies: Moxifloxacin (Unverified Adverse Reaction, Severe, "DEPLETED POTASSIUM AND MAGNESIUM. CARDIAC ARREST" PT , 11/03/17) Current Medications Home Meds and Scripts Medications Dose Route/Sig Max Daily Dose Days Date Category Lasix (Furosemide) 20 Mg Tab 20 Mg PO Q2D 30 11/03/17 Rx Lantus Solostar (Insulin Glargine) 100 Unit/Ml Inj 50 Units SC BID 11/03/17 Reported Novolog Flexpen (Insulin Aspart) 100 Units/Ml Inj 0 Units SC ACHS 30 07/25/17 Rx Lyrica (Pregabalin) 100 Mg Cap 100 Mg PO BID 7 07/25/17 Rx Bupropion HCl Sr (Bupropion HCl) 150 Mg Tabcr 150 Mg PO BID17 30 07/25/17 Rx Isosorbide Dinitrate 5 Mg Tab 10 Mg PO BID 30 07/25/17 Rx Combivent Respimat (Ipratropium-Albuterol) 1 Aer Aer 1 Puffs INH QID PRN 30 07/25/17 Rx Oxygen Gas 2 Liters NA DAILY PRN 30 07/25/17 Rx Nitrostat (Nitroglycerin) 0.4 Mg Tab 0.4 Mg UT PRN 07/16/17 Reported Fish Oil 1200 mg (Lavon-3 Fatty Acids) 1 Cap Cap 2 Cap PO BID 07/16/17 Reported Multivitamin (Multivitamins) Tab 1 Tab PO DAILY 07/16/17 Reported Mag-Ox (Magnesium Oxide) 400 Mg Tab 400 Mg PO BID 07/16/17 Reported Vitamin D3 (Cholecalciferol) 1,000 Unit Tab 2 Tab PO DAILY 07/16/17 Reported Aspirin Ec (Aspirin) 81 Mg Tab 81 Mg PO DAILY 07/16/17 Reported Plavix (Clopidogrel Bisulfate) 75 Mg Tab 75 Mg PO DAILY 07/16/17 Reported Toprol-Xl (Metoprolol Succinate) 25 Mg Tabcr 1.5 Tab PO HS 07/16/17 Reported Zyloprim (Allopurinol) 300 Mg Tab 300 Mg PO DAILY 07/16/17 Reported Levothyroxine Sodium 50 Mcg Tab 1 Tab PO DAILYBB 07/16/17 Reported Crestor (Rosuvastatin Calcium) 40 Mg Tab 40 Mg PO DAILY 07/16/17 Reported Tricor (Fenofibrate) 200 Mg Cap 200 Mg PO DAILY 07/16/17 Reported Norvasc (Amlodipine Besylate) 10 Mg Tab 10 Mg PO DAILY 07/16/17 Reported Protonix (Pantoprazole Sodium) 40 Mg Tab 40 Mg PO DAILY 07/16/17 Reported Cymbalta (Duloxetine HCl) 30 Mg Cap 1 Cap PO HS 07/16/17 Reported Cymbalta (Duloxetine Hcl) 60 Mg Cap 60 Mg PO DAILY 07/16/17 Reported Review of Systems 12 systems reviewed and negative except as noted Physical Exam Date Time Temp Pulse Resp B/P (MAP) Pulse Ox O2 Delivery O2 Flow Rate FiO2 11/04/17 07:30 36.8 62 20 141/67 (91) 94 Room Air 11/04/17 04:00 Room Air 11/04/17 03:30 37.4 70 20 142/76 (98) 94 Room Air 11/04/17 01:02 37.0 79 18 159/86 95 11/04/17 00:01 36.8 75 20 167/78 96 11/03/17 23:59 96 Room Air 11/03/17 23:30 36.8 76 20 156/87 96 11/03/17 23:30 37.2 78 23 144/82 (102) 94 Room Air 11/03/17 23:15 37.2 78 20 167/80 95 11/03/17 23:01 37.2 77 20 170/79 95 11/03/17 22:33 36.6 75 14 166/77 11/03/17 22:22 36.6 75 14 161/83 93 11/03/17 22:01 36.6 78 14 163/79 90 11/03/17 21:29 75 16 146/74 92 11/03/17 20:30 82 117/78 93 11/03/17 20:00 36.6 82 16 166/97 96 11/03/17 19:43 36.6 68 20 161/83 96 Room Air 11/03/17 19:35 36.6 63 16 168/84 95 11/03/17 19:09 36.5 72 18 157/69 93 11/03/17 19:02 67 22 139/74 97 11/03/17 18:56 36.4 66 18 147/74 93 11/03/17 18:41 36.5 67 18 135/69 96 Room Air 11/03/17 17:26 68 18 114/68 92 Room Air 11/03/17 16:16 66 20 178/62 91 Room Air 11/03/17 15:48 95 Room Air 11/03/17 15:18 61 11/03/17 15:10 36.4 62 20 148/67 96 Room Air General Appearance: WD/WN, no apparent distress Eyes: normal inspection, PERRL ENT: normal ENT inspection, hearing grossly normal, pharynx normal Neck: supple, no adenopathy Respiratory/Chest: chest non-tender, lungs clear, normal breath sounds, no respiratory distress Cardiovascular: regular rate, rhythm, no edema Abdomen: normal bowel sounds, non tender, soft Extremities: normal range of motion, non-tender, + pedal edema, + pertinent finding (toe amputation) 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/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: 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 as tested, no motor/sensory deficits, alert, normal mood/affect, oriented x 3 Skin: normal color, no jaundice, warm/dry, no rash Laboratory Results Last 24 Hours Test 11/03/17 15:45 11/03/17 15:46 11/03/17 16:50 11/03/17 17:50 White Blood Count 8.38 K/uL Red Blood Count 3.02 M/uL Hemoglobin 8.4 g/dL 8.2 g/dL Hematocrit 26.2 % 24.8 % Mean Corpuscular Volume 86.8 fL Mean Corpuscular Hemoglobin 27.8 pg Mean Corpuscular Hemoglobin Concent 32.1 g/dl Platelet Count 246 K/uL Mean Platelet Volume 10.5 fL Neutrophils (%) (Auto) 63.2 % Lymphocytes (%) (Auto) 26.0 % Monocytes (%) (Auto) 6.6 % Eosinophils (%) (Auto) 2.1 % Basophils (%) (Auto) 0.8 % Neutrophils # (Auto) 5.29 K/uL Lymphocytes # (Auto) 2.18 K/uL Monocytes # (Auto) 0.55 K/uL Eosinophils # (Auto) 0.18 K/uL Basophils # (Auto) 0.07 K/uL RDW Standard Deviation 46.8 fL RDW Coefficient of Variation 14.9 % Immature Granulocyte % (Auto) 1.3 % Immature Granulocyte # (Auto) 0.11 K/uL Anisocytosis PRESENT Prothrombin Time 11.4 SECONDS Prothromb Time International Ratio 1.1 Activated Partial Thromboplast Time 27.0 SECONDS Partial Thromboplastin Ratio 1.0 Sodium Level 139 mmol/L Potassium Level 3.7 mmol/L Chloride Level 105 mmol/L Carbon Dioxide Level 28 mmol/L Anion Gap 6.0 mmol/L Blood Urea Nitrogen 32 mg/dl Creatinine 2.48 mg/dl Est Creatinine Clear Calc Drug Dose 34.5 ml/min Estimated GFR () 28.9 Estimated GFR (Non- 25.0 BUN/Creatinine Ratio 13.0 Random Glucose 184 mg/dl Calcium Level 7.7 mg/dl Total Bilirubin 0.4 mg/dl Direct Bilirubin 0.2 mg/dl Aspartate Amino Transf (AST/SGOT) 14 U/L Alanine Aminotransferase (ALT/SGPT) 21 U/L Alkaline Phosphatase 35 U/L Troponin I < 0.015 ng/ml Total Protein 6.0 gm/dl Albumin 2.8 gm/dl Lipase 117 U/L Urine Color YELLOW Urine Appearance CLOUDY Urine pH 6.5 Urine Specific [place] 1.021 Urine Protein 2+ Urine Glucose (UA) 2+ Urine Ketones NEG Urine Occult Blood NEG Urine Nitrite NEG Urine Bilirubin NEG Urine Urobilinogen NEG Urine Leukocyte Esterase NEG Urine WBC (Auto) 5-10 /hpf Urine RBC (Auto) 0-4 /hpf Urine Hyaline Casts (Auto) 1-5 /lpf Urine Epithelial Cells (Auto) >30 /lpf Urine Bacteria (Auto) NEG Test 11/03/17 19:54 11/04/17 02:08 11/04/17 05:22 11/04/17 06:37 Bedside Glucose 89 mg/dl 90 mg/dl Hemoglobin 9.1 g/dL 9.1 g/dL Hematocrit 27.3 % 27.6 % White Blood Count 7.02 K/uL Red Blood Count 3.22 M/uL Mean Corpuscular Volume 85.7 fL Mean Corpuscular Hemoglobin 28.3 pg Mean Corpuscular Hemoglobin Concent 33.0 g/dl RDW Standard Deviation 48.1 fL RDW Coefficient of Variation 15.4 % Platelet Count 198 K/uL Mean Platelet Volume 11.1 fL Platelet Estimate NORMAL Sodium Level 143 mmol/L Potassium Level 3.6 mmol/L Chloride Level 111 mmol/L Carbon Dioxide Level 26 mmol/L Anion Gap 6.0 mmol/L Blood Urea Nitrogen 28 mg/dl Creatinine 2.10 mg/dl Est Creatinine Clear Calc Drug Dose 40.5 ml/min Estimated GFR () 35.4 Estimated GFR (Non- 30.5 BUN/Creatinine Ratio 13.4 Random Glucose 89 mg/dl Calcium Level 7.4 mg/dl Impression Patient is a 72 year old male smoker with significant cardiovascular disease on ASA and Plavix admitted with painless rectal bleeding and a drop in his hemoglobin. He has diverticulosis. His presentation is suggestive of a diverticular bleed, though given his comorbidities, ischemic colitis is also a possibility. Early changes of diverticulitis noted on CT scan. Plan - Follow H/H. - Suspect this will be a self limited lower GI bleed. He will need an outpatient colonoscopy in 6-8 weeks once he has completed course of tx for the diverticulitis. - OK to allow him to eat today.
--- NOTE | 2017-11-04 11:00 | Progress Note ---
Internal Med Progress Note Date of Service: Nov 04, 2017. Provider Documentation: SUBJECTIVE: Seen and examined at bedside Denies CP, SOB, Abdominal pain, nausea Had Bloody BM overnight No other complaints OBJECTIVE: Vital Signs-as noted below Physical Exam: General Appearance:Moderately built and nourished, no apparent distress Head: normocephalic, Atraumatic Eyes: normal inspection, EOMI, PERRL Neck: supple, Trachea midline Respiratory/Chest: Normal breath sounds, CTA Cardiovascular: S1, S2, No murmur Abdomen/GI:Soft, Non tender, +Obese, Bowel sounds present Extremities/Musculoskelatal:normal inspection, no edema, R toes S/P amputation Neurologic/Psych:AAOX3, grossly no focal neurological deficits Skin: normal color, warm Lab data as noted below. ASSESSMENT & PLAN: Acute Diverticulitis Acute Blood Loss Anemia Acute Lower GI bleeding Patient presented with persistent bright red bleeding per rectum S/P 2 units PRBC Monitor H&H ASA/Plavix held Transfuse PRBC PRN Last Colonoscopy in 2011: Diverticulosis throughout entire colon CT: Suggestive of Early diverticulitis in the descending colon Continue Unasyn Appreciate GI Input Needs Colonoscopy in 6-8 weeks as outpatient CAD S/P AICD stable hold ASA and Plavix continue beta buster, nitrate, and statin HTN Stable continue amlodipine, isosorbide, and metoprolol H/O Diastolic CHF Appears euvolemic hold Lasix for now CKD IV: Cr at baseline monitor renal function DM II Last A1C:7.0 07/2017 Continue ISS, Lantus Hypothyroidism: continue levothyroxine DVT Px: SCDs Re: GI bleed Code Status: Full Code Disposition: Monitor Vital Signs: Date Time Temp Pulse Resp B/P (MAP) Pulse Ox O2 Delivery O2 Flow Rate FiO2 11/04/17 08:00 Room Air 11/04/17 07:30 36.8 62 20 141/67 (91) 94 Room Air 11/04/17 04:00 Room Air 11/04/17 03:30 37.4 70 20 142/76 (98) 94 Room Air 11/04/17 01:02 37.0 79 18 159/86 95 11/04/17 00:01 36.8 75 20 167/78 96 11/03/17 23:59 96 Room Air 11/03/17 23:30 36.8 76 20 156/87 96 11/03/17 23:30 37.2 78 23 144/82 (102) 94 Room Air 11/03/17 23:15 37.2 78 20 167/80 95 11/03/17 23:01 37.2 77 20 170/79 95 18 22:33 36.6 75 14 166/77 11/03/17 22:22 36.6 75 14 161/83 93 11/03/17 22:01 36.6 78 14 163/79 90 11/03/17 21:29 75 16 146/74 92 11/03/17 20:30 82 117/78 93 11/03/17 20:00 36.6 82 16 166/97 96 11/03/17 19:43 36.6 68 20 161/83 96 Room Air 11/03/17 19:35 36.6 63 16 168/84 95 11/03/17 19:09 36.5 72 18 157/69 93 11/03/17 19:02 67 22 139/74 97 11/03/17 18:56 36.4 66 18 147/74 93 11/03/17 18:41 36.5 67 18 135/69 96 Room Air 11/03/17 17:26 68 18 114/68 92 Room Air 11/03/17 16:16 66 20 178/62 91 Room Air 11/03/17 15:48 95 Room Air 11/03/17 15:18 61 11/03/17 15:10 36.4 62 20 148/67 96 Room Air Lab Results: Results Past 24 Hours Test 11/03/17 15:45 11/03/17 15:46 11/03/17 16:50 11/03/17 17:50 Range/Units White Blood Count 8.38 4.8-10.8 K/uL Red Blood Count 3.02 4.7-6.1 M/uL Hemoglobin 8.4 8.2 14.0-18.0 g/dL Hematocrit 26.2 24.8 42-52 % Mean Corpuscular Volume 86.8 80-100 fL Mean Corpuscular Hemoglobin 27.8 25-34 pg Mean Corpuscular Hemoglobin Concent 32.1 32-36 g/dl Platelet Count 246 130-400 K/uL Mean Platelet Volume 10.5 7.4-10.4 fL Neutrophils (%) (Auto) 63.2 % Lymphocytes (%) (Auto) 26.0 % Monocytes (%) (Auto) 6.6 % Eosinophils (%) (Auto) 2.1 % Basophils (%) (Auto) 0.8 % Neutrophils # (Auto) 5.29 1.4-6.5 K/uL Lymphocytes # (Auto) 2.18 1.2-3.4 K/uL Monocytes # (Auto) 0.55 0.11-0.59 K/uL Eosinophils # (Auto) 0.18 0-0.5 K/uL Basophils # (Auto) 0.07 0-0.2 K/uL RDW Standard Deviation 46.8 36.4-46.3 fL RDW Coefficient of Variation 14.9 11.5-14.5 % Immature Granulocyte % (Auto) 1.3 % Immature Granulocyte # (Auto) 0.11 0.00-0.02 K/uL Anisocytosis PRESENT Prothrombin Time 11.4 9.0-12.0 SECONDS Prothromb Time International Ratio 1.1 0.9-1.1 Activated Partial Thromboplast Time 27.0 21.0-31.0 SECONDS Partial Thromboplastin Ratio 1.0 Sodium Level 139 136-145 mmol/L Potassium Level 3.7 3.5-5.1 mmol/L Chloride Level 105 98-107 mmol/L Carbon Dioxide Level 28 21-32 mmol/L Anion Gap 6.0 3-11 mmol/L Blood Urea Nitrogen 32 7-18 mg/dl Creatinine 2.48 0.60-1.40 mg/dl Est Creatinine Clear Calc Drug Dose 34.5 ml/min Estimated GFR () 28.9 Estimated GFR (Non- 25.0 BUN/Creatinine Ratio 13.0 10-20 Random Glucose 184 70-99 mg/dl Calcium Level 7.7 8.5-10.1 mg/dl Total Bilirubin 0.4 0.2-1 mg/dl Direct Bilirubin 0.2 0-0.2 mg/dl Aspartate Amino Transf (AST/SGOT) 14 15-37 U/L Alanine Aminotransferase (ALT/SGPT) 21 12-78 U/L Alkaline Phosphatase 35 45-117 U/L Troponin I < 0.015 0-0.045 ng/ml Total Protein 6.0 6.4-8.2 gm/dl Albumin 2.8 3.4-5.0 gm/dl Lipase 117 73-393 U/L Urine Color YELLOW Urine Appearance CLOUDY CLEAR Urine pH 6.5 4.5-7.5 Urine Specific [place] 1.021 1.000-1.030 Urine Protein 2+ NEG Urine Glucose (UA) 2+ NEG Urine Ketones NEG NEG Urine Occult Blood NEG NEG Urine Nitrite NEG NEG Urine Bilirubin NEG NEG Urine Urobilinogen NEG NEG Urine Leukocyte Esterase NEG NEG Urine WBC (Auto) 5-10 0-5 /hpf Urine RBC (Auto) 0-4 0-4 /hpf Urine Hyaline Casts (Auto) 1-5 0-5 /lpf Urine Epithelial Cells (Auto) >30 0-5 /lpf Urine Bacteria (Auto) NEG NEG Test 11/03/17 19:54 11/04/17 02:08 11/04/17 05:22 11/04/17 06:37 Range/Units Bedside Glucose 89 90 70-99 mg/dl Hemoglobin 9.1 9.1 14.0-18.0 g/dL Hematocrit 27.3 27.6 42-52 % White Blood Count 7.02 4.8-10.8 K/uL Red Blood Count 3.22 4.7-6.1 M/uL Mean Corpuscular Volume 85.7 80-100 fL Mean Corpuscular Hemoglobin 28.3 25-34 pg Mean Corpuscular Hemoglobin Concent 33.0 32-36 g/dl RDW Standard Deviation 48.1 36.4-46.3 fL RDW Coefficient of Variation 15.4 11.5-14.5 % Platelet Count 198 130-400 K/uL Mean Platelet Volume 11.1 7.4-10.4 fL Platelet Estimate NORMAL Sodium Level 143 136-145 mmol/L Potassium Level 3.6 3.5-5.1 mmol/L Chloride Level 111 98-107 mmol/L Carbon Dioxide Level 26 21-32 mmol/L Anion Gap 6.0 3-11 mmol/L Blood Urea Nitrogen 28 7-18 mg/dl Creatinine 2.10 0.60-1.40 mg/dl Est Creatinine Clear Calc Drug Dose 40.5 ml/min Estimated GFR () 35.4 Estimated GFR (Non- 30.5 BUN/Creatinine Ratio 13.4 10-20 Random Glucose 89 70-99 mg/dl Calcium Level 7.4 8.5-10.1 mg/dl Test 11/04/17 11:12 Range/Units Hemoglobin 9.3 14.0-18.0 g/dL Hematocrit 27.9 42-52 %
[2017-11-04 11:25] LABS: HEMATOCRIT 27.9 % (42-52); HEMOGLOBIN 9.3 g/dL (14.0-18.0)
[2017-11-04] MEDS: INSULIN GLARGINE SOLOSTAR 100 UNITS/ML 3 ML PEN SC SCH (12:29)
--- NOTE | 2017-11-04 14:01 | Pharmacy Progress Note ---
Glycemic Control Intl Consult Date of Service Nov 04, 2017. Scope Glycemic Pharmacist consulted by LEIGH Mack on 11/03/17 for glycemic control and to write orders per [facility] inpatient glycemic control protocol Objective Weight (Kilograms): 112.400 Accuchecks BSG (last 24hrs): Test 11/03/17 15:46 11/03/17 19:54 11/04/17 05:22 11/04/17 06:37 Random Glucose 184 mg/dl (70-99) 89 mg/dl (70-99) Bedside Glucose 89 mg/dl (70-99) 90 mg/dl (70-99) Test 11/04/17 11:25 Bedside Glucose 95 mg/dl (70-99) Laboratory Data (last 24hrs) Test 11/03/17 15:45 11/03/17 15:46 11/04/17 05:22 White Blood Count 8.38 K/uL 7.02 K/uL Red Blood Count 3.02 M/uL Hemoglobin 8.4 g/dL Hematocrit 26.2 % Mean Corpuscular Volume 86.8 fL Mean Corpuscular Hemoglobin 27.8 pg Mean Corpuscular Hemoglobin Concent 32.1 g/dl Platelet Count 246 K/uL Mean Platelet Volume 10.5 fL Neutrophils (%) (Auto) 63.2 % Lymphocytes (%) (Auto) 26.0 % Monocytes (%) (Auto) 6.6 % Eosinophils (%) (Auto) 2.1 % Basophils (%) (Auto) 0.8 % Neutrophils # (Auto) 5.29 K/uL Lymphocytes # (Auto) 2.18 K/uL Monocytes # (Auto) 0.55 K/uL Eosinophils # (Auto) 0.18 K/uL Basophils # (Auto) 0.07 K/uL Anion Gap 6.0 mmol/L 6.0 mmol/L BUN/Creatinine Ratio 13.0 13.4 Blood Urea Nitrogen 32 mg/dl 28 mg/dl Creatinine 2.48 mg/dl 2.10 mg/dl Potassium Level 3.7 mmol/L 3.6 mmol/L Sodium Level 139 mmol/L 143 mmol/L Recent Pertinent Medications Outpatient Anti-diabetic Regimen: * Lantus 50 units BID * Novolog ACHS * A1c = 7.0 % 07/17/17 Risk Factors for Insulin Resistance: * Infection: Unasyn * Diet: Type 2 DM Assessment & Plan ASSESSMENT: * 72 year old type 2 diabetic known to pharmacy glycemic service from admission in July 2017, admitted with lower GI bleed. * Pt was NPO after midnight and BSG 90mg/dl this morning, so I held patient's Lantus, then resumed it at 1200 as pt was started on a diet. * Pt was well controlled by pharmacy last admission so I will begin a similar regimen and titrate to goal at this time * Pt due for new A1c PLAN FOR INPATIENT GLYCEMIC CONTROL: * A1c with AM Labs * Basal insulin with LANTUS 14 units SQ BID * Correctional Insulin with NOVOLOG per scale ACHS or Q6hrs while NPO * Goal Range: Low 110 mg/dL - High 140 mg/dL * Correction Factor: 20 mg/dL/unit * Nutritional / Prandial insulin per carb ratio of 1 unit per 10 grams CHO consumed * Please note that the plan above was derived based on current level of insulin resistance and hospital stress. These recommendations are appropriate for inpatient admission only. Plan of care upon discharge will need to be reassessed to avoid potential outpatient hypo/hyperglycemia. Thank you.
[2017-11-04 16:29] LABS: HEMATOCRIT 26.1 % (42-52); HEMOGLOBIN 8.7 g/dL (14.0-18.0)
[2017-11-04 20:01] LABS: HEMATOCRIT 26.1 % (42-52); HEMOGLOBIN 8.7 g/dL (14.0-18.0)
[2017-11-04] MEDS ORDERED: INSULIN GLARGINE SOLOSTAR 100 UNITS/ML 3 ML PEN SC SCH (21:00)
[2017-11-04] MEDS: DULOXETINE (CYMBALTA) 30 MG CAP PO SCH (21:12)
[2017-11-04] MEDS: METOPROLOL SUCC 25MG EXT REL TAB PO SCH (21:13)
[2017-11-05] MEDS: AMPICILLIN/SULBACTAM SOD INJ 1,500 MG in SODIUM CHLORIDE 0.9% 100ML 100 ML IV SCH ×4 (03:57→21:51)
[2017-11-05 06:09] LABS: HEMATOCRIT 26.5 % (42-52); HEMOGLOBIN 8.6 g/dL (14.0-18.0); MEAN CELL VOLUME 88.3 fL (80-100); MEAN CORPUSCULAR HEMOGLOBIN 28.7 pg (25-34); MEAN CORPUSCULAR HGB CONC 32.5 g/dl (32-36); MEAN PLATELET VOLUME 10.4 fL (7.4-10.4); NUCLEATED RED BLOOD CELL ABS 0.04 K/uL (0-0); PLATELET COUNT 202 K/uL (130-400); RED CELL DISTRIBUTION WIDTH CV 15.9 % (11.5-14.5); RED CELL DISTRIBUTION WIDTH SD 50.8 fL (36.4-46.3); WHITE BLOOD COUNT 5.48 K/uL (4.8-10.8)
[2017-11-05] MEDS: ISOSORBIDE DINITRATE 10 MG TAB PO SCH ×2 (06:26→11:34)
[2017-11-05] MEDS: LEVOTHYROXINE 50 MCG TAB PO SCH (06:26)
[2017-11-05 06:44] LABS: CALCIUM 7.7 mg/dl (8.5-10.1); CREATININE 2.42 mg/dl (0.60-1.40); POTASSIUM 3.5 mmol/L (3.5-5.1)
[2017-11-05] MEDS: ROSUVASTATIN CALCIUM 20 MG TAB PO SCH (07:28)
[2017-11-05] MEDS: DULOXETINE HCL 60 MG CAP PO SCH (07:28)
[2017-11-05] MEDS: MULTIVITAMIN TAB PO SCH (07:28)
[2017-11-05] MEDS: PANTOprazole SOD 40 MG TAB PO SCH (07:29)
[2017-11-05] MEDS: CHOLECALCIFEROL 1000 INTER.UNIT TAB PO SCH (07:29)
[2017-11-05] MEDS: FENOFIBRATE MICRONIZED 200 MG PO SCH (07:29)
[2017-11-05] MEDS: ALLOPURINOL 300 MG TAB PO SCH (07:29)
[2017-11-05] MEDS: MAGNESIUM OXIDE 400 MG TAB PO SCH ×2 (07:29→21:51)
[2017-11-05] MEDS: AMLODIPINE BESYLATE 5 MG TAB PO SCH (07:29)
[2017-11-05] MEDS: PREGABALIN 100 MG CAP PO SCH ×2 (07:36→21:51)
[2017-11-05 07:55] VITALS: BP 125/64; PULSE 63; TEMP 37.3; O2SAT 96
[2017-11-05] MEDS: BuPROPion SR 150 MG TABCR PO SCH ×2 (08:51→16:47)
[2017-11-05] MEDS: INSULIN ASPART 100 UNITS/ML 3 ML PEN SC SCH ×4 (08:52→21:00)
[2017-11-05] MEDS: INSULIN GLARGINE SOLOSTAR 100 UNITS/ML 3 ML PEN SC SCH (08:53)
--- NOTE | 2017-11-05 09:24 | Progress Note ---
Internal Med Progress Note Date of Service: Nov 05, 2017. Provider Documentation: SUBJECTIVE: Seen and examined at bedside Had small BM with dark colored blood Denies CP, SOB, Abdominal pain, nausea No other complaints Hb stable OBJECTIVE: Vital Signs-as noted below Physical Exam: General Appearance:Moderately built and nourished, no apparent distress Head: normocephalic, Atraumatic Eyes: normal inspection, EOMI, PERRL Neck: supple, Trachea midline Respiratory/Chest: Normal breath sounds, CTA Cardiovascular: S1, S2, No murmur Abdomen/GI:Soft, Non tender, +Obese, Bowel sounds present Extremities/Musculoskelatal:normal inspection, no edema, R toes S/P amputation Neurologic/Psych:AAOX3, grossly no focal neurological deficits Skin: normal color, warm Lab data as noted below. ASSESSMENT & PLAN: Acute Diverticulitis Acute Blood Loss Anemia Acute Lower GI bleeding (H/O Diverticulosis, Polyps) Patient presented with persistent bright red bleeding per rectum S/P 2 units PRBC Monitor H&H ASA/Plavix held Transfuse PRBC PRN Last Colonoscopy in 2011: Diverticulosis throughout entire colon CT: Suggestive of Early diverticulitis in the descending colon Continue Unasyn Day # 3 Appreciate GI Input Needs Colonoscopy in 6-8 weeks as outpatient Hb:8.6 today CAD S/P AICD stable hold ASA and Plavix for now continue beta buster, nitrate, and statin HTN Stable continue amlodipine, isosorbide, and metoprolol H/O Diastolic CHF Appears euvolemic hold Lasix for now CKD IV: Cr at baseline monitor renal function H/O P.A.fib Rate controlled continue Metoprolol Not a candidate for anticoagulation monitor electrolytes DM II Last A1C:7.0 07/2017 Continue ISS, Lantus Hypothyroidism: continue levothyroxine DVT Px: SCDs Re: GI bleed Code Status: Full Code Disposition: Monitor in Tele Vital Signs: Date Time Temp Pulse Resp B/P (MAP) Pulse Ox O2 Delivery O2 Flow Rate FiO2 11/05/17 07:55 37.3 63 20 125/64 (84) 96 Room Air 11/05/17 04:00 Room Air 11/05/17 00:02 Room Air 11/04/17 23:30 37.0 69 19 134/77 (96) 94 Room Air 11/04/17 20:00 Room Air 11/04/17 19:38 36.4 63 20 136/70 (92) 93 Room Air 11/04/17 16:00 Room Air 11/04/17 15:58 36.7 64 18 128/65 (86) 95 11/04/17 12:00 Room Air 11/04/17 11:40 36.7 72 20 155/60 (91) 91 Room Air Lab Results: Results Past 24 Hours Test 11/04/17 11:12 11/04/17 11:25 11/04/17 16:12 11/04/17 16:20 Range/Units Hemoglobin 9.3 8.7 14.0-18.0 g/dL Hematocrit 27.9 26.1 42-52 % Bedside Glucose 95 145 70-99 mg/dl Test 11/04/17 19:50 11/04/17 20:56 11/05/17 05:42 11/05/17 06:42 Range/Units Hemoglobin 8.7 8.6 14.0-18.0 g/dL Hematocrit 26.1 26.5 42-52 % Bedside Glucose 169 152 70-99 mg/dl White Blood Count 5.48 4.8-10.8 K/uL Red Blood Count 3.00 4.7-6.1 M/uL Mean Corpuscular Volume 88.3 80-100 fL Mean Corpuscular Hemoglobin 28.7 25-34 pg Mean Corpuscular Hemoglobin Concent 32.5 32-36 g/dl RDW Standard Deviation 50.8 36.4-46.3 fL RDW Coefficient of Variation 15.9 11.5-14.5 % Platelet Count 202 130-400 K/uL Mean Platelet Volume 10.4 7.4-10.4 fL Nucleated RBC Absolute Count (auto) 0.04 0-0 K/uL Nucleated Red Blood Cells % 0.8 % Sodium Level 141 136-145 mmol/L Potassium Level 3.5 3.5-5.1 mmol/L Chloride Level 109 98-107 mmol/L Carbon Dioxide Level 27 21-32 mmol/L Anion Gap 5.0 3-11 mmol/L Blood Urea Nitrogen 28 7-18 mg/dl Creatinine 2.42 0.60-1.40 mg/dl Est Creatinine Clear Calc Drug Dose 35.1 ml/min Estimated GFR () 29.8 Estimated GFR (Non- 25.7 BUN/Creatinine Ratio 11.6 10-20 Random Glucose 164 70-99 mg/dl Calcium Level 7.7 8.5-10.1 mg/dl Microbiology Results 11/05/17 C.difficile Toxin B Gene (PCR) - Final, Complete No C. difficile toxin B gene detected 11/05/17 Shiga Toxin Test, Received Pending 11/05/17 Stool Culture, Received Pending
[2017-11-05] MEDS ORDERED: POTASSIUM CHLORIDE 20 MEQ TABCR PO ONE (10:45)
[2017-11-05 12:55] VITALS: BP 152/74; PULSE 70; TEMP 36.8; O2SAT 90
[2017-11-05 15:26] VITALS: BP 132/68; PULSE 56; TEMP 36.7; O2SAT 94
[2017-11-05 19:35] VITALS: BP 148/73; PULSE 65; TEMP 36.5; O2SAT 92
[2017-11-05] MEDS ORDERED: INSULIN GLARGINE SOLOSTAR 100 UNITS/ML 3 ML PEN SC SCH ×3 (21:00)
[2017-11-05] MEDS: DULOXETINE (CYMBALTA) 30 MG CAP PO SCH (21:51)
[2017-11-05] MEDS: METOPROLOL SUCC 25MG EXT REL TAB PO SCH (21:51)
[2017-11-05 23:35] VITALS: BP 154/61; PULSE 74; TEMP 36.7; O2SAT 92
[2017-11-06] MEDS: AMPICILLIN/SULBACTAM SOD INJ 1,500 MG in SODIUM CHLORIDE 0.9% 100ML 100 ML IV SCH ×2 (03:00→08:36)
[2017-11-06 03:38] VITALS: BP 146/72; PULSE 71; TEMP 37; O2SAT 90
[2017-11-06] MEDS: INSULIN ASPART 100 UNITS/ML 3 ML PEN SC SCH ×4 (04:00→12:32)
[2017-11-06] MEDS: LEVOTHYROXINE 50 MCG TAB PO SCH (06:12)
[2017-11-06] MEDS: ISOSORBIDE DINITRATE 10 MG TAB PO SCH ×2 (06:13→08:28)
[2017-11-06 06:56] LABS: HEMATOCRIT 25.5 % (42-52); HEMOGLOBIN 8.5 g/dL (14.0-18.0)
[2017-11-06 07:22] VITALS: BP 147/70; PULSE 68; TEMP 37.1; O2SAT 97
[2017-11-06 07:29] LABS: CREATININE 2.55 mg/dl (0.60-1.40); POTASSIUM 3.5 mmol/L (3.5-5.1)
[2017-11-06 07:52] LABS: HEMOGLOBIN A1C 7.9 % (4.5-5.6)
[2017-11-06] MEDS ORDERED: POTASSIUM CHLORIDE 10 MEQ TABCR PO ONE (08:15)
[2017-11-06] MEDS: ALLOPURINOL 300 MG TAB PO SCH (08:28)
[2017-11-06] MEDS: DULOXETINE HCL 60 MG CAP PO SCH (08:28)
[2017-11-06] MEDS: AMLODIPINE BESYLATE 5 MG TAB PO SCH (08:29)
[2017-11-06] MEDS: ROSUVASTATIN CALCIUM 20 MG TAB PO SCH (08:29)
[2017-11-06] MEDS: BuPROPion SR 150 MG TABCR PO SCH (08:29)
[2017-11-06] MEDS: PANTOprazole SOD 40 MG TAB PO SCH (08:30)
[2017-11-06] MEDS: MULTIVITAMIN TAB PO SCH (08:30)
[2017-11-06] MEDS: MAGNESIUM OXIDE 400 MG TAB PO SCH (08:30)
[2017-11-06] MEDS: FENOFIBRATE MICRONIZED 200 MG PO SCH (08:31)
[2017-11-06] MEDS: CHOLECALCIFEROL 1000 INTER.UNIT TAB PO SCH (08:32)
[2017-11-06] MEDS: PREGABALIN 100 MG CAP PO SCH (08:36)
[2017-11-06] MEDS ORDERED: INSULIN GLARGINE SOLOSTAR 100 UNITS/ML 3 ML PEN SC SCH (09:00)
--- NOTE | 2017-11-06 09:38 | Pharmacy Progress Note ---
Glycemic Control Progress Note Date of Service Nov 06, 2017. Scope Glycemic Pharmacist consulted for glycemic control to write orders per [facility] inpatient glycemic control protocol. Objective Accuchecks BSG (last 24hrs): Test 11/05/17 11:48 11/05/17 16:20 11/05/17 20:38 11/06/17 00:04 Bedside Glucose 187 mg/dl (70-99) 258 mg/dl (70-99) 138 mg/dl (70-99) 161 mg/dl (70-99) Test 11/06/17 04:12 11/06/17 06:28 Bedside Glucose 144 mg/dl (70-99) Random Glucose 135 mg/dl (70-99) HbA1c: Test 11/05/17 05:42 Hemoglobin A1c 7.9 % (4.5-5.6) H Recent Pertinent Medications The patient is currently receiving: * Basal insulin: Lantus 14 units qAM + 22 units qPM (14 units BID prior to 11/05) * Correctional Insulin: Novolog Correction per scale ACHS Goal Range: Low 110 mg/dL - High 140 mg/dL Correction Factor: 20 mg/dL/unit * Prandial insulin: Per carb ratio of 1 unit per 8 grams CHO consumed Outpatient Anti-Diabetic Meds * Lantus 50 units BID * Novolog ACHS * A1c = 7.9 % 11/05/17 Assessment & Plan ASSESSMENT: * See progress note from 11/04/17 for more background info, in short: * Pt receiving SQ basal bolus insulin regimen for hyperglycemia secondary to baseline DM (outpatient regimen on hold) and stress * Patient is currently receiving an average of 69 units of insulin per day * 36 units of basal insulin * 33 units of prandial/correctional insulin * BSGs ranging 145 - 258 mg/dl over the past 24hrs * Changes needed to insulin regimen: * AM Fasting BSG = 135 mg/dl. This is near goal range for patient based on inpatient targets and co-morbidities. No changes to basal insulin. * Post-prandial BSGs became elevated yesterday, therefore carb ratio was tightened. Will continue same for now. * Anticipate total daily dose around 80 units. PLAN FOR INPATIENT GLYCEMIC CONTROL: * Basal insulin * Lantus 18 units SQ BID * Bolus insulin * NovoLog per scale ACHS or Q6hrs while NPO * Goal Range: Low 110 mg/dL - High 140 mg/dL * Correction Factor: 20 mg/dL/unit * Nutritional / Prandial insulin per carb ratio of 1 unit per 8 grams CHO consumed * Please note that the plan above was derived based on current level of insulin resistance and hospital stress. These recommendations are appropriate for inpatient admission only. Plan of care upon discharge will need to be reassessed to avoid potential outpatient hypo/hyperglycemia. Thank you.
--- NOTE | 2017-11-06 09:55 | Gastroenterology Progress Note ---
Progress Note Date of Service: Nov 06, 2017 Subjective Pt evaluation today including: conversation w/ patient, physical exam, chart review, lab review, review of inpatient medication list Pt report some BM this AM w dark maroon stool. Denies any n/v, abd pain. No fever, chills, CP, SOB overnight. Hgb stable at 8. Review of Systems Constitutional: No fever, No chills Respiratory: No cough, No shortness of breath Cardiac: No chest pain Abdomen: + see HPI, + GI bleeding, No pain, No nausea, No vomiting Medications Current Inpatient Medications Medications (Trade) Dose Ordered Sig/Lashae Route Start Time Stop Time Status Last Admin Dose Admin Acetaminophen (Tylenol Tab) 650 mg Q4H PRN PO 11/03/17 17:15 12/03/17 17:14 Ondansetron HCl (Zofran Inj) 4 mg Q6H PRN IV 11/03/17 17:15 12/03/17 17:14 Allopurinol (Zyloprim Tab) 300 mg DAILY PO 11/04/17 09:00 12/04/17 08:59 11/06/17 08:28 300 MG Amlodipine Besylate (Norvasc Tab) 10 mg DAILY PO 11/04/17 09:00 12/04/17 08:59 11/06/17 08:29 10 MG Bupropion HCl (Wellbutrin-Sr Tab) 150 mg BID17 PO 11/04/17 09:00 12/04/17 08:59 11/06/17 08:29 150 MG Cholecalciferol (Vitamin D Tab) 2,000 inter.unit DAILY PO 11/04/17 09:00 12/04/17 08:59 11/06/17 08:32 2,000 INTER.UNIT Duloxetine HCl (Cymbalta Cap) 30 mg HS PO 11/03/17 21:00 12/03/17 20:59 11/05/17 21:51 30 MG Duloxetine HCl (Cymbalta Cap) 60 mg DAILY PO 11/04/17 09:00 12/04/17 08:59 11/06/17 08:28 60 MG Isosorbide Dinitrate (Isordil Tab) 10 mg BID@0700,1200 PO 11/04/17 07:00 12/04/17 06:59 11/06/17 08:28 10 MG Levothyroxine Sodium (Synthroid Tab) 50 mcg DAILYBB PO 11/04/17 06:00 12/04/17 06:59 11/06/17 06:12 50 MCG Magnesium Oxide (Mag-Ox Tab) 400 mg BID PO 11/03/17 21:00 12/03/17 20:59 11/06/17 08:30 400 MG Metoprolol Succinate (Toprol Xl Tab) 37.5 mg HS PO 11/03/17 21:00 12/03/17 20:59 11/05/17 21:51 37.5 MG Multivitamins (Multivitamin Tab) 1 tab DAILY PO 11/04/17 09:00 12/04/17 08:59 11/06/17 08:30 1 TAB Pantoprazole Sodium (Protonix Tab) 40 mg DAILY PO 11/04/17 09:00 12/04/17 08:59 11/06/17 08:30 40 MG Pregabalin (Lyrica Cap) 100 mg BID PO 11/03/17 21:00 12/03/17 20:59 11/06/17 08:36 100 MG Rosuvastatin Calcium (Crestor Tab) 40 mg DAILY PO 11/04/17 09:00 12/04/17 08:59 11/06/17 08:29 40 MG Insulin Aspart (novoLOG ASPART) SLIDING SCALE If C... ACHS SC 11/03/17 21:00 12/03/17 20:59 11/06/17 08:41 7 UNITS Glucose (Glucose 40% Gel) 15-30 GRAMS 15 GRAMS... UD PRN PO 11/03/17 17:30 12/03/17 17:29 Glucose (Glucose Chew Tab) 4-8 Tablets 4 Tabl... UD PRN PO 11/03/17 17:30 12/03/17 17:29 Dextrose (Dextrose 50% 50ML Syringe) 25-50ML OF 50% DW IV FOR... UD PRN IV 11/03/17 17:30 12/03/17 17:29 Glucagon (Glucagon Inj) 1 mg UD PRN SQ 11/03/17 17:30 12/03/17 17:29 Miscellaneous Information (Consult Glycemic Management Pharmacy) 1 ea UD PRN N/A 11/03/17 19:15 12/03/17 19:14 Ampicillin Sodium/ Sulbactam Sodium 1500 mg/Sodium Chloride 104 ml @ 200 mls/hr Q6H IV 11/03/17 21:00 11/13/17 20:59 11/06/17 08:36 200 MLS/HR Fenofibrate (Tricor) 200 mg QAM PO 11/05/17 09:00 12/05/17 08:59 11/06/17 08:31 200 MG Insulin Glargine (Lantus Solostar Pen) 18 units Q12 SC 11/06/17 09:00 12/06/17 08:59 11/06/17 08:42 18 UNITS Objective Vital Signs Date Time Temp Pulse Resp B/P (MAP) Pulse Ox O2 Delivery O2 Flow Rate FiO2 11/06/17 08:00 Room Air 11/06/17 07:22 37.1 68 20 147/70 (95) 97 Room Air 11/06/17 04:00 Room Air 11/06/17 03:38 37.0 71 18 146/72 (96) 90 Room Air 11/06/17 00:02 Room Air 11/05/17 23:35 36.7 74 20 154/61 (92) 92 Room Air 11/05/17 20:00 Room Air 11/05/17 19:35 36.5 65 20 148/73 (98) 92 Room Air 11/05/17 16:00 Room Air 11/05/17 15:26 36.7 56 18 132/68 (89) 94 Room Air 11/05/17 12:55 36.8 70 18 152/74 (100) 90 Room Air 11/05/17 12:00 Room Air Physical Exam General Appearance: WD/WN, no apparent distress Eyes: normal inspection, PERRL, EOMI Neck: supple, no JVD, trachea midline Respiratory/Chest: normal breath sounds, no respiratory distress, no accessory muscle use Cardiovascular: regular rate, rhythm, no gallop, no murmur Abdomen: normal bowel sounds, non tender, soft Extremities: normal inspection, no pedal edema, no calf tenderness Neurologic/Psych: alert, normal mood/affect, oriented x 3 Skin: normal color, no jaundice, no rash Laboratory Results Last 24 Hours Test 11/05/17 11:48 11/05/17 16:20 11/05/17 20:38 11/06/17 00:04 Bedside Glucose 187 mg/dl 258 mg/dl 138 mg/dl 161 mg/dl Test 11/06/17 04:12 11/06/17 06:28 Bedside Glucose 144 mg/dl Hemoglobin 8.5 g/dL Hematocrit 25.5 % Sodium Level 143 mmol/L Potassium Level 3.5 mmol/L Chloride Level 109 mmol/L Carbon Dioxide Level 26 mmol/L Anion Gap 8.0 mmol/L Blood Urea Nitrogen 26 mg/dl Creatinine 2.55 mg/dl Est Creatinine Clear Calc Drug Dose 33.4 ml/min Estimated GFR () 28.0 Estimated GFR (Non- 24.1 BUN/Creatinine Ratio 10.0 Random Glucose 135 mg/dl Calcium Level 8.0 mg/dl Magnesium Level 2.4 mg/dl Assessment and Plan Pt is a 72 y/o male seen for painless rectal bleeding. CT abd/pelvis w signs of possible early diverticulitis in descending/sigmoid colon.. he's been on ASA and Plavix for hx of cardiovascular disease. Last colonoscopy 2011 with findings of diverticulosis and tubular adenoma polyps. DDx: diverticular bleed, ischemic/infectious colitis. Cdiff negative, stool cx pending. - Monitor H/H and transfuse prn. - Diet as tolerated - Continue antibiotic treatment for diverticulitis, may convert to PO antibiotics to continue treatment for 10 days upon DC - He needs a colonoscopy in 6-8 week's time and we will contact pt for appt. - Will signs off; call if new questions/concerns arise. I performed a history and physical examination of the patient, including specifically on physical exam - abdomen is soft.I have discussed the patient's management with Nicol Casas. Please refer to the RACK WORKER's note for the documented findings and plan of care. Colonoscopy in 6-8 weeks as outpatient.
[2017-11-06 11:19] VITALS: BP 150/78; PULSE 71; TEMP 36.7; O2SAT 91
--- NOTE | 2017-11-06 12:25 | Progress Note ---
Internal Med Progress Note Date of Service: Nov 06, 2017. Provider Documentation: SUBJECTIVE: Seen and examined at bedside Doing well today Denies any blood in stools Denies CP, SOB, Abdominal pain, nausea Hb stable Family at bedside OBJECTIVE: Vital Signs-as noted below Physical Exam: General Appearance:Moderately built and nourished, no apparent distress Head: normocephalic, Atraumatic Eyes: normal inspection, EOMI, PERRL Neck: supple, Trachea midline Respiratory/Chest: Normal breath sounds, CTA Cardiovascular: S1, S2, No murmur Abdomen/GI:Soft, Non tender, +Obese, Bowel sounds present Extremities/Musculoskelatal:normal inspection, no edema, R toes S/P amputation Neurologic/Psych:AAOX3, grossly no focal neurological deficits Skin: normal color, warm Lab data as noted below. ASSESSMENT & PLAN: Acute Diverticulitis Acute Blood Loss Anemia Acute Lower GI bleeding (H/O Diverticulosis, Polyps) Patient presented with persistent bright red bleeding per rectum S/P 2 units PRBC Monitor H&H ASA/Plavix held for now Transfuse PRBC PRN Last Colonoscopy in 2011: Diverticulosis throughout entire colon CT: Suggestive of Early diverticulitis in the descending colon Continue Unasyn Day # 4>>switch to PO Cipro and Flagyl Appreciate GI Input Needs Colonoscopy in 6-8 weeks as outpatient Hb:8.5 today CAD S/P AICD stable hold ASA and Plavix for now continue beta buster, nitrate, and statin HTN Stable continue amlodipine, isosorbide, and metoprolol H/O Diastolic CHF Appears euvolemic hold Lasix for now CKD IV: Cr at baseline monitor renal function H/O P.A.fib Rate controlled continue Metoprolol Not a candidate for anticoagulation monitor electrolytes DM II Last A1C:7.0 07/2017 Continue ISS, Lantus Hypothyroidism: continue levothyroxine DVT Px: SCDs Re: GI bleed Code Status: Full Code Disposition: Plan to discharge home today Follow up with your Primary Care Physician on 11/09/17 at 2:45pm Follow up with your Newspaper Correspondent or your PCP regarding when to restart your Aspirin and Plavix Follow up with your Financial Supervisor for colonoscopy in 6-8 weeks Complete the antibiotic course as prescribed Seek immediate medical attention if your symptoms reoccur or worsen Vital Signs: Date Time Temp Pulse Resp B/P (MAP) Pulse Ox O2 Delivery O2 Flow Rate FiO2 11/06/17 11:41 Room Air 11/06/17 11:19 36.7 71 18 150/78 (102) 91 Room Air 11/06/17 08:00 Room Air 11/06/17 07:22 37.1 68 20 147/70 (95) 97 Room Air 11/06/17 04:00 Room Air 11/06/17 03:38 37.0 71 18 146/72 (96) 90 Room Air 11/06/17 00:02 Room Air 11/05/17 23:35 36.7 74 20 154/61 (92) 92 Room Air 11/05/17 20:00 Room Air 11/05/17 19:35 36.5 65 20 148/73 (98) 92 Room Air 11/05/17 16:00 Room Air 11/05/17 15:26 36.7 56 18 132/68 (89) 94 Room Air 11/05/17 12:55 36.8 70 18 152/74 (100) 90 Room Air Lab Results: Results Past 24 Hours Test 11/05/17 16:20 11/05/17 20:38 11/06/17 00:04 11/06/17 04:12 Range/Units Bedside Glucose 258 138 161 144 70-99 mg/dl Test 11/06/17 06:11 11/06/17 06:28 11/06/17 11:04 Range/Units Bedside Glucose 141 157 70-99 mg/dl Hemoglobin 8.5 14.0-18.0 g/dL Hematocrit 25.5 42-52 % Sodium Level 143 136-145 mmol/L Potassium Level 3.5 3.5-5.1 mmol/L Chloride Level 109 98-107 mmol/L Carbon Dioxide Level 26 21-32 mmol/L Anion Gap 8.0 3-11 mmol/L Blood Urea Nitrogen 26 7-18 mg/dl Creatinine 2.55 0.60-1.40 mg/dl Est Creatinine Clear Calc Drug Dose 33.4 ml/min Estimated GFR () 28.0 Estimated GFR (Non- 24.1 BUN/Creatinine Ratio 10.0 10-20 Random Glucose 135 70-99 mg/dl Calcium Level 8.0 8.5-10.1 mg/dl Magnesium Level 2.4 1.8-2.4 mg/dl
[2017-11-06] MEDS ORDERED: AMOX1TAB43 PO (12:37)
--- NOTE | 2017-11-06 12:39 | Discharge Summary ---
Discharge Summary Date of Service Nov 06, 2017. Discharge Summary Admission Date: Nov 03, 2017 at 17:07 Discharge Date: Nov 06, 2017 Discharge Disposition: Home Principal Diagnosis: Acute GI bleed, Acute diverticulitis Procedures: CT ABD: 1. Diverticulosis of the descending and sigmoid colon. Minimal pericolonic fat infiltration along the descending colon suggests early acute on, located diverticulitis. No CT evidence of perforation or abscess. 2. Chronic diverticular disease of the sigmoid colon. 3. Mild osteopenia suggested. 4. Subcentimeter fatty lesion at the right hepatic dome may represent an angiomyolipoma or lipoma. Consultations: GI Pending Studies/Follow-Up: Follow up with your Primary Care Physician on 11/09/17 at 2:45pm Follow up with your Ball Assembler or your PCP regarding when to restart your Aspirin and Plavix Follow up with your Pantograph Machine Operator for colonoscopy in 6-8 weeks Complete the antibiotic course as prescribed Seek immediate medical attention if your symptoms reoccur or worsen Medication Reconciliation New Medications: Amoxicillin & Pot Clavulanate (Amoxicillin/Clavulanate P) 1 Tab Tab 875 MG PO BIDM for 5 Days, #10 TAB Continued Medications: Allopurinol (Zyloprim) 300 Mg Tab 300 MG PO DAILY, TAB Amlodipine (Norvasc) 10 Mg Tab 10 MG PO DAILY, TAB Aspirin (Aspirin Ec) 81 Mg Tab 81 MG PO DAILY Bupropion HCl (Bupropion HCl Sr) 150 Mg Tabcr 150 MG PO BID17 for 30 Days Cholecalciferol (Vitamin D3) 1,000 Unit Tab 2 TAB PO DAILY, TAB Clopidogrel (Plavix) 75 Mg Tab 75 MG PO DAILY, TAB Duloxetine Hcl (Cymbalta) 60 Mg Cap 60 MG PO DAILY, CAP Duloxetine HCl (Cymbalta) 30 Mg Cap 1 CAP PO HS, CAP Fenofibrate (Tricor) 200 Mg Cap 200 MG PO DAILY, CAP Furosemide (Lasix) 20 Mg Tab 20 MG PO Q2D for 30 Days, #8 TAB 2 Refills Home O2 Therapy (Oxygen) Gas 2 LITERS NA DAILY PRN for shortness of breath/hypoxia for 30 Days Insulin Aspart (Novolog Flexpen) 100 Units/Ml Inj 0 UNITS SC ACHS for 30 Days Insulin Glargine (Lantus Solostar) 100 Unit/Ml Inj 50 UNITS SC BID, PEN Ipratropium-Albuterol (Combivent Respimat) 1 Aer Aer 1 PUFFS INH QID PRN for SOB/Wheezing for 30 Days Isosorbide Dinitrate (Isosorbide Dinitrate) 5 Mg Tab 10 MG PO BID for 30 Days Levothyroxine Sodium (Levothyroxine Sodium) 50 Mcg Tab 1 TAB PO DAILYBB, TAB Magnesium Oxide (Mag-Ox) 400 Mg Tab 400 MG PO BID, TAB Metoprolol Succ (Toprol Xl) (Toprol-Xl) 25 Mg Tabcr 1.5 TAB PO HS, TAB Multivitamin (Multivitamin) Tab 1 TAB PO DAILY, TAB Nitroglycerin (Nitrostat) 0.4 Mg Tab 0.4 MG UT PRN, BTL [place]-3 Fatty Acids (Fish Oil 1200 mg) 1 Cap Cap 2 CAP PO BID Pantoprazole (Protonix) 40 Mg Tab 40 MG PO DAILY, TAB Pregabalin (Lyrica) 100 Mg Cap 100 MG PO BID for 7 Days Rosuvastatin Calcium (Crestor) 40 Mg Tab 40 MG PO DAILY, TAB Admission Information HPI (per Admitting provider): 72 year old male who presents to the ED with rectal bleeding and nausea. Patient reports the rectal bleeding started yesterday morning. He reports multiple episodes of bright red bleeding per rectum. There have been clots at times too. Blood has continued to ooze since yesterday morning. He denies any pain. Today he had nausea but denies vomiting. He reports feeling lightheaded and dizzy but no syncopal events. He has chronic exertional shortness of breath which is unchanged from baseline. No chest pain. He denies fever and chills. He has chronic urinary hesitancy. In the ED, patient's hgb is found to be 8.4. Vitals are stable. CT ordered by myself shows an early descending colon diverticulitis. He was given IVF in the ED. Physical Exam (per Admitting): General Appearance: WD/WN, no apparent distress Head: normocephalic, atraumatic Eyes: normal inspection, EOMI, sclerae normal ENT: hearing grossly normal, + pertinent finding (mucous membranes moist) Neck: supple, no JVD, trachea midline Respiratory/Chest: lungs clear, normal breath sounds, no respiratory distress Cardiovascular: regular rate, rhythm, no edema, normal peripheral pulses Abdomen/GI: normal bowel sounds, soft, no organomegaly, + tenderness (mild, LLQ) Extremities/Musculoskelatal: normal inspection, no calf tenderness, normal capillary refill, + pertinent finding (s/p toe amputations on right foot) Neurologic/Psych: no motor/sensory deficits, alert, normal mood/affect, oriented x 3 Skin: normal color, warm/dry, + pertinent finding (open callous noted to left gret toe - no drainage or surrounding erythema) Hospital Course Acute Diverticulitis Acute Blood Loss Anemia Acute Lower GI bleeding (H/O Diverticulosis, Polyps) Patient presented with persistent bright red bleeding per rectum S/P 2 units PRBC Monitor H&H ASA/Plavix held for now Transfuse PRBC PRN Last Colonoscopy in 2011: Diverticulosis throughout entire colon CT: Suggestive of Early diverticulitis in the descending colon Continue Unasyn Day # 4>>switch to PO Cipro and Flagyl Appreciate GI Input Needs Colonoscopy in 6-8 weeks as outpatient Hb:8.5 today CAD S/P AICD stable hold ASA and Plavix for now continue beta buster, nitrate, and statin HTN Stable continue amlodipine, isosorbide, and metoprolol H/O Diastolic CHF Appears euvolemic hold Lasix for now CKD IV: Cr at baseline monitor renal function H/O P.A.fib Rate controlled continue Metoprolol Not a candidate for anticoagulation monitor electrolytes DM II Last A1C:7.0 07/2017 Continue ISS, Lantus Hypothyroidism: continue levothyroxine DVT Px: SCDs Re: GI bleed Code Status: Full Code Disposition: Plan to discharge home today Follow up with your Primary Care Physician on 11/09/17 at 2:45pm Follow up with your Ball Assembler or your PCP regarding when to restart your Aspirin and Plavix Follow up with your Pantograph Machine Operator for colonoscopy in 6-8 weeks Complete the antibiotic course as prescribed Seek immediate medical attention if your symptoms reoccur or worsen Total time spent on discharge = 35 minutes This includes examination of the patient, discharge planning, medication reconciliation, and communication with other providers. Discharge Instructions Discharge Instructions Date of Service Nov 06, 2017. Admission Reason for Admission: Gi Bleed Discharge Discharge Diagnosis / Problem: Acute GI bleed, Acute diverticulitis Discharge Goals Goal(s): Decrease discomfort, Improve function Activity Recommendations Activity Limitations: resume your previous activity Exercise/Sports Limitations: as tolerated . Instructions / Follow-Up Instructions / Follow-Up Follow up with your Primary Care Physician on 11/09/17 at 2:45pm Follow up with your Ball Assembler or your PCP regarding when to restart your Aspirin and Plavix Follow up with your Pantograph Machine Operator for colonoscopy in 6-8 weeks Complete the antibiotic course as prescribed Seek immediate medical attention if your symptoms reoccur or worsen Current Hospital Diet Patient's current hospital diet: Diabetes Type 2 Diet Discharge Diet Recommended Diet: Diabetes Type 2 Diet Pending Studies Studies pending at discharge: no Laboratory Results Hemoglobin A1c Test 11/05/17 05:42 Range/Units Estimated Average Glucose 180 mg/dl Hemoglobin A1c 7.9 H 4.5-5.6 % Medical Emergencies . Who to Call and When: Medical Emergencies: If at any time you feel your situation is an emergency, please call 911 immediately. . Non-Emergent Contact Non-Emergency issues call your: Primary Care Provider, Pantograph Machine Operator Call Non-Emergent contact if: you have a fever, your pain is not controlled, your pain is worsening, your pain is unusual for you, your pain is concerning you, you have any medication questions Seek immediate medical attention if your symptoms reoccur or worsen . . "Provider Documentation" section prepared by Chidi Pardo. . VTE Core Measure Inpt VTE Proph given/why not?: SCD's <Electronically signed by Chidi Pardo MD> Signed: 11/06/17 1238 Signed: The status of this report is Signed * If report status is Draft, the document has not been finalized by the responsible provider.
[2017-11-06 12:51] VITALS: BP 150/78; PULSE 71; TEMP 36.7; O2SAT 91
[2017-11-06] MEDS ORDERED: AMOXICILLIN/CLAVULANATE TAB 875 MG TAB PO SCH (16:45)
== END 2017-11-06 13:38 | disposition home health service (06) | DRG 378 ==
LOC: C.EDB 15:03 → C.2T 17:07 → ENRESERV 18:00
PROVIDERS: ADMIT Family Medicine; ATTEND Internal Medicine
DX: K57.33 Diverticulitis of large intestine without perforation or abscess with bleeding (principal); I50.30 Unspecified diastolic (congestive) heart failure; D62 Acute posthemorrhagic anemia; N18.4 Chronic kidney disease, stage 4 (severe); I13.0 Hypertensive heart and chronic kidney disease with heart failure and stage 1 through stage 4 chronic kidney disease, or unspecified chronic kidney disease; I25.2 Old myocardial infarction; K57.30 Diverticulosis of large intestine without perforation or abscess without bleeding; Z95.1 Presence of aortocoronary bypass graft; Z95.810 Presence of automatic (implantable) cardiac defibrillator; I25.10 Atherosclerotic heart disease of native coronary artery without angina pectoris; Z86.74 Personal history of sudden cardiac arrest; E11.21 Type 2 diabetes mellitus with diabetic nephropathy; K21.9 Gastro-esophageal reflux disease without esophagitis; F17.200 Nicotine dependence, unspecified, uncomplicated; I65.29 Occlusion and stenosis of unspecified carotid artery; Z88.1 Allergy status to other antibiotic agents; E03.9 Hypothyroidism, unspecified; I48.0 Paroxysmal atrial fibrillation